=== PATIENT | male | born 1935 | race Caucasian/White ===

== ENCOUNTER → 2019-06-29 | Outpatient (CLI) | payer MEDICARE, SELFPAY ==
[2017-01-02 19:29] VITALS: BMI 28.7
--- NOTE | 2019-06-29 14:49 | EKG12_ITS ---
Test Reason : PRE OP Blood Pressure : / mmHG Vent. Rate : 046 BPM Atrial Rate : 046 BPM P-R Int : 214 ms QRS Dur : 160 ms QT Int : 446 ms P-R-T Axes : 065 -15 041 degrees QTc Int : 390 ms Marked sinus bradycardia with 1st degree A-V block Right bundle branch block Septal infarct , age undetermined , cannot be excluded Abnormal ECG Confirmed by FALGUNI WRIGHT, CATALINA ([id number]), sports editor ANGEL MANZANO ([id number]) on 07/01/2019 8:53:50 AM Referred By: Kenny Yoo Confirmed By:CATALINA MONTES DE OCA MD
[2019-06-29 16:02] LABS: Hematocrit 44.2 % (40-54); Hemoglobin 14.3 g/dL (13.0-16.5); Mean Corp Hgb Conc 32.4 g/dL (32-36); Mean Corpuscular Hgb 30.2 pg (27.0-32.0); Mean Corpuscular Volume 93.2 fL (80-94); Mean Platelet Vol. 9.6 fl (6.2-12.0); Platelet Count 278 K/mm3 (150-450); RBC Distribution Width CV 12.3 % (11.6-14.6); RBC Distribution Width SD 42.3 fl (35.1-43.9); Red Blood Count 4.74 M/mm3 (4.6-6.2); White Blood Count 5.6 K/mm3 (4.4-11.0)
[2019-06-29 16:30] LABS: Anion Gap 6 (5-15); BUN 16 mg/dL (7-18); BUN/Creat Ratio 18.5 RATIO (10-20); Chloride 105 mmol/L (98-107); Creatinine, Serum 0.87 mg/dL (0.70-1.30); EST Glomerular Filtration Rate 90 mL/min (>60); Est Glom Filt Rate - Afr Amer 108 mL/min (>60); Glucose 84 mg/dL (74-106); Potassium 3.8 mmol/L (3.5-5.1); Sodium Level 140 mmol/L (136-145)
== END | disposition home or self-care (01) ==
LOC: LAB 14:14
PROVIDERS: PCP Family Medicine; Referring Provider Urology; Visit Provider Urology
DX: Z01.812 Encounter for preprocedural laboratory examination (principal); I10 Essential (primary) hypertension
CPT/HCPCS: 36415; 80048; 85027; 93005

== ENCOUNTER → 2019-12-28 | Outpatient (CLI) | payer MEDICARE, SELFPAY ==
--- NOTE | 2019-12-28 14:46 | EKG12_ITS ---
Test Reason : Blood Pressure : / mmHG Vent. Rate : 049 BPM Atrial Rate : 049 BPM P-R Int : 210 ms QRS Dur : 150 ms QT Int : 460 ms P-R-T Axes : 078 -36 012 degrees QTc Int : 415 ms Sinus bradycardia with 1st degree A-V block Left axis deviation Right bundle branch block Abnormal ECG Confirmed by JOHN WRIGHT, SHAZIA ([id number]), offline editor ANGEL MANZANO ([id number]) on 12/29/2019 8:45:05 AM Referred By: Kenny Yoo Confirmed By:SHAZIA LOPEZ MD
[2019-12-28 15:44] LABS: Hematocrit 42.8 % (40-54); Mean Corp Hgb Conc 32.7 g/dL (32-36); Mean Corpuscular Hgb 30.8 pg (27.0-32.0); Mean Corpuscular Volume 94.1 fL (80-94); Mean Platelet Vol. 9.9 fl (6.2-12.0); Platelet Count 277 K/mm3 (150-450); RBC Distribution Width CV 12.7 % (11.6-14.6); RBC Distribution Width SD 43.8 fl (35.1-43.9); Red Blood Count 4.55 M/mm3 (4.6-6.2)
[2019-12-28 16:09] LABS: Anion Gap 3 (5-15); BUN 14 mg/dL (7-18); BUN/Creat Ratio 18.9 RATIO (10-20); Calcium,Total 8.9 mg/dL (8.5-10.1); Chloride 107 mmol/L (98-107); Creatinine, Serum 0.74 mg/dL (0.70-1.30); EST Glomerular Filtration Rate 108 mL/min (>60); Est Glom Filt Rate - Afr Amer 130 mL/min (>60); Glucose 95 mg/dL (74-106); Potassium 4.1 mmol/L (3.5-5.1); Sodium Level 141 mmol/L (136-145)
== END | disposition home or self-care (01) ==
PROVIDERS: PCP Family Medicine; Referring Provider Urology; Visit Provider Urology
DX: I10 Essential (primary) hypertension (principal); Z11.59 Encounter for screening for other viral diseases
CPT/HCPCS: 36415; 80048; 85027; 87635; 93005; 94799; C9803; U0003

== ENCOUNTER → 2022-01-16 | Outpatient (CLI) | payer MEDICARE, SELFPAY ==
--- NOTE | 2022-01-17 10:31 | PFT ---
INTRODUCTION: The patient is an 86-year-old male that presents for pulmonary function studies secondary to a diagnosis of asthma/COPD. Respiratory therapy reported good patient effort. Bronchodilators were used during testing. INTERPRETATION: Forced expiration spirometry demonstrates the presence of a mild large airways obstructive ventilatory defect. There was a significant response to aerosolized bronchodilators noted. Spirograms are of good quality but do not plateau indicating slow emptying of the lungs. Body plethysmography was performed and revealed an elevated RV to 127% of predicted, indicative of underlying air trapping. Diffusing capacity by single breath CO was within normal limits. IMPRESSION: Partially reversible mild large airways obstructive ventilatory defect with associated air trapping and preserved diffusing capacity, in a pattern consistent with asthma/COPD overlap.
== END | disposition home or self-care (01) ==
LOC: PSN 12:44
PROVIDERS: PCP Family Medicine; Visit Provider Internal Medicine Critical Care Medicine
DX: J44.9 Chronic obstructive pulmonary disease, unspecified (principal)
CPT/HCPCS: 94060; 94726; 94729

== ENCOUNTER → 2022-01-18 | Outpatient (CLI) | payer MEDICARE, SELFPAY ==
[2022-01-18 12:51] VITALS: PULSE 100; PULSE 101; PULSE 102; PULSE 60; PULSE 63; PULSE 97; PULSE 98; O2SAT 93; O2SAT 94; O2SAT 95; O2SAT 96; O2SAT 98
--- NOTE | 2022-01-19 13:09 | PCM.PSN.6M ---
PSN 6 Minute Walk Test 6 Minute Walk Test 6 Minute Walk Test: 6 Minute Walk Test PSN:6-Minute Walk Test Start: 01/18/22 12:51 Freq: Status: Active Protocol: RESP.6MINW Document 01/18/22 12:51 MARYJO (Rec: 01/18/22 12:53 MARYJO [id number]) 6 Minute Walk Test Date Performed 01/18/22 Time Performed 12:30 Height 5 ft 7 in Weight: 160 lb Weight in Pounds 160.[address]: Rashi Heard Pre-test Oxygen Delivery Method Room Air Pulse Ox (%) 98 Pulse Rate (60-100 beats/min) 60 Dyspnea Jovon Scale (0-10) 0 Exertion Jovon Scale (6-20) 6 1st minute Oxygen Delivery Method Room Air Pulse Ox (%) 98 Pulse Rate (60-100 beats/min) 97 2nd minute Oxygen Delivery Method Room Air Pulse Ox (%) 96 Pulse Rate (60-100 beats/min) 100 3rd minute Oxygen Delivery Method Room Air Pulse Ox (%) 95 Pulse Rate (60-100 beats/min) 98 4th minute Oxygen Delivery Method Room Air Pulse Ox (%) 94 Pulse Rate (60-100 beats/min) 102 H 5th minute Oxygen Delivery Method Nasal Cannula Pulse Ox (%) 93 Pulse Rate (60-100 beats/min) 101 H 6th minute Oxygen Delivery Method Room Air Pulse Ox (%) 93 Pulse Rate (60-100 beats/min) 100 Dyspnea Jovon Scale (0-10) 3 Exertion Jovon Scale (6-20) 12 Post-test Oxygen Delivery Method Room Air Pulse Ox (%) 98 Pulse Rate (60-100 beats/min) 63 Full Laps Walked 22 Partial Lap, Number of Tiles Walked 30 Total Distance Walked (ft) 1328 Interpretation Interpretation: The patient ambulated 1328 feet over the course of 6 minutes beginning on room air without assistive devices. Pretesting oxygen saturation was noted to be 98% on room air. With ambulation, then a maximilian oxygen saturation was 93%. This represents a significant exertional oxygen desaturation. Recommendations Recommendations: There is no indication for the use of supplemental oxygen at this time. However, close interval follow-up is recommended, given the degree of oxygen desaturation noted during this study.
== END | disposition home or self-care (01) ==
LOC: PSN 12:32
PROVIDERS: PCP Family Medicine; Referring Provider Internal Medicine Critical Care Medicine; Visit Provider Internal Medicine Critical Care Medicine
DX: J44.9 Chronic obstructive pulmonary disease, unspecified (principal)
CPT/HCPCS: 94618

== ENCOUNTER → 2022-08-21 | Outpatient (CLI) | payer MEDICARE, SELFPAY ==
[2022-08-21 16:44] LABS: PSA,Total- Diagnostic 0.77 ng/mL (0.0-4.0)
== END | disposition home or self-care (01) ==
LOC: LAB 13:55
PROVIDERS: PCP Family Medicine; Referring Provider Urology; Visit Provider Urology
DX: N40.1 Benign prostatic hyperplasia with lower urinary tract symptoms (principal)
CPT/HCPCS: 36415; 84153

== ENCOUNTER → 2022-11-05 | Outpatient (CLI) | payer MEDICARE, SELFPAY ==
[2022-11-05 12:23] LABS: Absolute Lymphocyte Count 1.12 X10^3/uL (0.83-4.51); Absolute Neutrophil Count 3.5 X10^3/uL (2.0-7.7); Basophil# 0.05 X10^3/uL; Basophil% 0.8 % (0-1); Eosinophil# 0.49 X10^3/uL; Eosinophils% 8.2 % (0-5); Hematocrit 44.4 % (40-54); Hemoglobin 14.5 g/dL (13.0-16.5); Lymphocyte # 1.12 X10^3/ul (0.83-4.51); Lymphocyte % 18.8 % (19-41); Mean Corp Hgb Conc 32.7 g/dL (32-36); Mean Corpuscular Hgb 31.4 pg (27.0-32.0); Mean Corpuscular Volume 96.1 fL (80-94); Monocyte# 0.75 X10^3/uL; Monocyte% 12.6 % (0-10); NRBC Flagged by Analyzer 0 % (0-5); Neutrophil # 3.53 X10^3/uL (2.7-7.7); Neutrophil % 59.4 % (47-70); Platelet Count 265 K/mm3 (150-450); RBC Distribution Width SD 46.4 fl (35.1-43.9); Red Blood Count 4.62 M/mm3 (4.6-6.2)
--- NOTE | 2022-11-05 12:28 | EKG12_ITS ---
Test Reason : PREOP Blood Pressure : / mmHG Vent. Rate : 062 BPM Atrial Rate : 062 BPM P-R Int : 000 ms QRS Dur : 148 ms QT Int : 432 ms P-R-T Axes : 000 -39 029 degrees QTc Int : 438 ms Sinus rhythm Left axis deviation Right bundle branch block Abnormal ECG Confirmed by KARRIE WRIGHT, RUBA ([id number]), editor farm journal ANGEL MANZANO ([id number]) on 11/06/2022 9:03:33 AM Referred By: Margarito Franco Confirmed By:JYOTI YOON MD
[2022-11-05 12:33] LABS: Anion Gap 4 (5-15); BUN 21 mg/dL (7-18); BUN/Creat Ratio 26.9 RATIO (10-20); Calcium,Total 8.9 mg/dL (8.5-10.1); Chloride 107 mmol/L (98-107); Creatinine, Serum 0.78 mg/dL (0.70-1.30); EST Glomerular Filtration Rate 100 mL/min (>60); Est Glom Filt Rate - Afr Amer 121 mL/min (>60); Glucose 101 mg/dL (74-106); Sodium Level 140 mmol/L (136-145)
[2022-11-05 12:36] LABS: International Normalized Ratio 0.9; Prothrombin Time (Protime)PT. 12.6 SECONDS (11.7-14.9)
[2022-11-05 12:37] LABS: Partial Thromboplast Time 29.9 Seconds (24.1-36.2)
--- NOTE | 2022-11-05 12:47 | RAD_ITS ---
EXAM: XR CHEST, 2 VIEWS CLINICAL INDICATION: ENCOUNTER FOR PRE PREPROCEDURAL RESP EXAM TECHNIQUE: Frontal and lateral views of the chest. COMPARISON: No relevant prior studies available. FINDINGS: LUNGS AND PLEURAL SPACES: Hyperinflation. No pneumothorax. No effusion. HEART: Unremarkable. Cardiac silhouette not enlarged. MEDIASTINUM: Central airways and mediastinal contour are unremarkable. BONES/JOINTS: Degenerative changes of the spine. SOFT TISSUES: Unremarkable. RAD/Chest PA and Lateral IMPRESSION: No acute findings in the chest. COPD changes. Electronically Signed: Bridger Hadley MD at 1:18 EDT ,
== END | disposition home or self-care (01) ==
PROVIDERS: PCP Family Medicine; Referring Provider Orthopaedic Surgery; Visit Provider Orthopaedic Surgery
DX: Z01.818 Encounter for other preprocedural examination (principal); Z01.810 Encounter for preprocedural cardiovascular examination; Z01.811 Encounter for preprocedural respiratory examination
CPT/HCPCS: 36415; 71046; 80048; 85025; 85610; 85730; 93005

== ENCOUNTER 2023-03-11 20:40 | Inpatient (IN) | payer MEDICARE, SELFPAY ==
[2023-03-11 20:42] VITALS: BP 169/131; PULSE 65; RESP 10; TEMP 36.1; O2SAT 98; BMI 25.2
--- NOTE | 2023-03-11 20:49 | EKG12_ITS ---
Test Reason : CP Blood Pressure : / mmHG Vent. Rate : 063 BPM Atrial Rate : 063 BPM P-R Int : 198 ms QRS Dur : 146 ms QT Int : 428 ms P-R-T Axes : -07 126 017 degrees QTc Int : 437 ms Normal sinus rhythm Right bundle branch block Left posterior fascicular block Bifascicular block Septal infarct , age undetermined Cannot rule out Inferior infarct , age undetermined Abnormal ECG No previous ECGs available Confirmed by JOHN WRIGHT, SHAZIA ([id number]), editor managing director DEISI LANCASTER ([id number]) on 03/13/2023 2:26:48 PM Referred By: SONIA Confirmed By:SHAZIA LOPEZ MD
--- NOTE | 2023-03-11 20:54 | CM.ED ---
Social Work SW performed chart review; LW with HCPOA agents noted on file as of 2011. Patient's agents are Madisyn Latham, Logan Latham and Beni Latham. Franny Singer MSW, CARMITA
[2023-03-11 21:11] LABS: Absolute Lymphocyte Count 1.71 X10^3/uL (0.83-4.51); Basophil# 0.04 X10^3/uL; Basophil% 0.6 % (0-1); Eosinophils% 1.5 % (0-5); Hematocrit 45.8 % (40-54); Hemoglobin 15.3 g/dL (13.0-16.5); Lymphocyte # 1.71 X10^3/ul (0.83-4.51); Lymphocyte % 25.7 % (19-41); Mean Corp Hgb Conc 33.4 g/dL (32-36); Mean Corpuscular Hgb 32.2 pg (27.0-32.0); Mean Corpuscular Volume 96.4 fL (80-94); Mean Platelet Vol. 9.3 fl (6.2-12.0); Monocyte# 0.75 X10^3/uL; Monocyte% 11.3 % (0-10); NRBC Flagged by Analyzer 0 % (0-5); Neutrophil # 4.04 X10^3/uL (2.7-7.7); Neutrophil % 60.7 % (47-70); Platelet Count 316 K/mm3 (150-450); RBC Distribution Width CV 12.5 % (11.6-14.6); RBC Distribution Width SD 45.1 fl (35.1-43.9); Red Blood Count 4.75 M/mm3 (4.6-6.2); White Blood Count 6.7 K/mm3 (4.4-11.0)
--- NOTE | 2023-03-11 21:28 | ED.VIS.CHEST ---
HPI History of Present Illness Chief Complaint: Chest Pain Narrative Narrative: 87-year-old male with history of asthma/COPD overlap syndrome, GERD, hypertension, hyperlipidemia presenting with chest pain. States is right-sided. He states due to his asthma/COPD he bends over he gets short of breath and he was working in his garage and he started feel this way. When he stood up started have sharp pain on the right which feels like it was stabbing. He states that he radiate to the back into the right arm and he became sweaty. He still has the pain there but it is improved. No fevers or chills. No nausea or vomiting. Patient has no history of [place]. Negative stress test 10 years ago. Patient no longer a smoker. He does not wear oxygen at baseline. [facility] Medical History Asthma BPH (benign prostatic hyperplasia) Chronic constipation COPD (chronic obstructive pulmonary disease) GERD (gastroesophageal reflux disease) History of facial trauma HTN (hypertension) Hydrocele, bilateral Hyperlipidemia Neuropathy Seasonal allergies Home Medications cetirizine 10 mg capsule (Allergy Relief (cetirizine)) 10 mg PO QODAY 09/13/15 [History Last Taken Unknown] flunisolide 25 mcg (0.025 %) nasal spray 1 spray BID 09/13/15 [History Last Taken Unknown] melatonin 3 mg-pyridoxine (vitamin B6) 2 mg tablet 1 ea PO QHS 09/13/15 [History Last Taken Unknown] albuterol sulfate 90 mcg/actuation aerosol inhaler (ProAir HFA) 2 puff inhalation Q6H PRN 07/19/21 [History Last Taken Unknown] losartan 50 mg tablet 100 mg PO DAILY 07/19/21 [History Last Taken Unknown] montelukast 10 mg tablet 10 mg PO QHS 07/19/21 [History Last Taken Unknown] tiotropium 2.5 mcg-olodaterol 2.5 mcg/actuation mist for inhalation (Stiolto Respimat) 2 inh inhalation DAILY #4 grams 05/24/22 [Rx Last Taken Unknown] Allergy/AdvReac Type Severity Reaction Status Date / Time Iodinated Contrast Media Allergy Anaphylaxis Verified 03/11/23 20:41 [CONTRASTS] chlorpromazine HCl AdvReac Rash Verified 03/11/23 20:41 [From Thorazine] fosinopril sodium AdvReac Hives Verified 03/11/23 20:41 [From Monopril] lisinopril AdvReac Hives Verified 03/11/23 20:41 suture AdvReac Swelling Verified 03/11/23 20:41 Family History Mother Heart disease Hypertension Father Cancer prostate Surgical History History of appendectomy History of back surgery History of cataract extraction History of colonoscopy History of facial surgery History of foot surgery History of left knee replacement History of prostate biopsy History of surgery on arm Social History Smoking Status: Former smoker pack-years: 20 Tobacco: How many years used: 20 Electronic Cigarette Use: not used how long ago did patient quit smoking: about 47 years ago second hand exposure: No alcohol intake: never substance use type: does not use ROS ROS ED Constitutional Constitutional ED: Denies chills, fever(s) or sweats Eyes Eyes: Denies blurry vision or change in vision ENT ENT ED: Denies ear pain or sore throat Cardiovascular Cardiovascular: Reports chest pain; Denies palpitations or racing heartbeat Respiratory/Chest Respiratory/Chest: Reports dyspnea; Denies cough or sputum Gastrointestinal Gastrointestinal: Denies abdominal pain, constipation, diarrhea, nausea or vomiting Genitourinary Genitourinary ED: Denies dysuria, hematuria or urinary frequency Musculoskeletal Musculoskeletal: Denies arthralgias, myalgias or neck pain Integumentary Denies abscess, Abrasions or rash Neurologic Neurologic: Denies headache(s), paresthesias or weakness Psychiatric Psychiatric: Denies anxiety, depression, suicidal ideation or suicidal thoughts Endocrine Endocrinology: Denies polydipsia or polyuria EXAM Physical Exam Const Vital Signs: 03/11/23 20:42 03/11/23 20:45 03/11/23 21:48 Temperature 97 F L Temperature Source Temporal Pulse Rate 65 Respiratory Rate 10 L Respiratory Effort Normal Non-Labored Blood Pressure 169/131 H Blood Pressure Mean 143 Pulse Ox 98 Oxygen Delivery Method Room Air Room Air Heart Score History: Slightly/Non-Suspicious ECG: Normal Age: >/= 65 years Risk Factors: >/= 3 Risk Factors or History of CAD Troponin: >/=3 x Normal Limit Score: 6 MDM MDM MDM Narrative Medical decision making narrative: Patient presenting with chest pain which he had since 8:00. It was acute in onset and happened after he bent over. He states that when he stood up he had sharp chest pain on the right which radiated to the right arm and into the back and then became sweaty. No nauseousness. He has shortness of breath but it is really chronic. Differential includes but is not limited to ACS, aortic dissection, pneumonia, pneumothorax, muscle strain, costochondritis. Considered PE however the patient is PERC negative. CBC will be obtained to assess white blood cell count, hemoglobin, platelets. BMP to assess renal function, electrolytes, glucose. High-sensitivity troponin and EKG will be obtained to assess for ischemia/dysrhythmia. Chest x-ray to rule out pneumonia or pneumothorax CBC shows no leukocytosis. Hemoglobin hematocrit are stable. Platelets are normal. Renal function electrolytes within normal limits. Initial high-sensitivity troponin is 31. EKG on my interpretation shows a sinus rhythm with a ventricular rate of 65 bpm without sign of ischemic change. There is a right bundle branch block. X-ray on my interpretation shows no acute process. Radiologist interprets this and agrees. Patient is given aspirin and started on heparin drip discussed with cardiology. Patient will be admitted to the hospitalist for further treatment. Impression: 1. NSTEMI Lab Data Attestation: I reviewed the patient's lab results. Labs: Laboratory Results - last 24 hr 03/11/23 03/11/23 20:45 22:46 WBC 6.7 RBC 4.75 Hgb 15.3 Hct 45.8 MCV 96.4 H MCH 32.2 H MCHC 33.4 RDW Std Deviation 45.1 H RDW Coeff of Horace 12.5 Plt Count 316 MPV 9.3 Immature Gran % (Auto) 0.200 Neut % (Auto) 60.7 Lymph % (Auto) 25.7 [place] % (Auto) 11.3 H Eos % (Auto) 1.5 Baso % (Auto) 0.6 Absolute Neuts (auto) 4.0 Absolute Lymphs (auto) 1.71 Nucleated RBC % 0 Sodium 139 Potassium 3.8 Chloride 104 Carbon Dioxide 28.0 Anion Gap 7 BUN 21 H Creatinine 0.92 Estim Creat Clear Calc 56.79 Est GFR (MDRD) Af Amer 101 Est GFR (MDRD) Non-Af 84 BUN/Creatinine Ratio 23.0 H Glucose 106 Calcium 9.3 Troponin I High Sens 31 662 H* Radiography Diagnostic Testing: Clinical Impression(s) from Imaging Studies Chest X-Ray 03/11/23 21:45 IMPRESSION: No radiographic evidence of acute cardiopulmonary disease. Electronically Signed: Orlin Rivera MD at 22:24 EDT , Discharge Plan Triage Chief Complaint: Chest Pain ED Provider: Bryson Morillo Dx/Rx/DC Orders Prescriptions: No Action montelukast 10 mg tablet 10 mg PO QHS albuterol sulfate [ProAir HFA] 90 mcg/actuation HFA aerosol inhaler 2 puff inhalation Q6H PRN Stiolto Respimat 2.5-2.5 mcg/actuation mist 2 inh inhalation DAILY Qty: 4 2RF flunisolide 1 SPRAY spray,non-aerosol 1 spray NASAL BID cetirizine [Allergy Relief (cetirizine)] 10 MG capsule 10 mg PO QODAY melatonin-pyridoxine (vit B6) 1 EACH tablet 1 ea PO QHS losartan 50 mg tablet 100 mg PO DAILY Primary Care Provider: Michael Moran Referrals: Michael Moran MD [Primary Care Provider] -
[2023-03-11 21:30] LABS: Anion Gap 7 (5-15); BUN 21 mg/dL (7-18); Calcium,Total 9.3 mg/dL (8.5-10.1); Chloride 104 mmol/L (98-107); Creatinine, Serum 0.92 mg/dL (0.70-1.30); EST Glomerular Filtration Rate 84 mL/min (>60); Est Glom Filt Rate - Afr Amer 101 mL/min (>60); Estimated Creatinine Clearance 56.79 ml/min; Glucose 106 mg/dL (74-106); Potassium 3.8 mmol/L (3.5-5.1); Sodium Level 139 mmol/L (136-145); Troponin-I HS (w/2H Reflex) 31 pg/mL (3.0-78.0)
--- NOTE | 2023-03-11 21:45 | RAD_ITS ---
INDICATION: chest pain EXAMINATION/TECHNIQUE: X-RAY - XR Chest 1 View COMPARISON: 11/05/2022. FINDINGS: LINES/DEVICES: None. LUNGS: No consolidation, edema or effusion. No pneumothorax. MEDIASTINUM AND CARDIOVASCULAR STRUCTURES: Cardiac silhouette not enlarged. Mild aortic atherosclerosis. BONES AND SOFT TISSUES: Unremarkable. RAD/Chest 1 View (Portable) IMPRESSION: No radiographic evidence of acute cardiopulmonary disease. Electronically Signed: Orlin Rivera MD at 22:24 EDT ,
[2023-03-11] MEDS: Aspirin 81 MG TAB.CHEW 324 MG PO (22:25)
[2023-03-11 23:03] LABS: Reflex Troponin-HS? (from REC) Y
[2023-03-11 23:29] LABS: Troponin-I HS 662 pg/mL (3.0-78.0)
--- NOTE | 2023-03-11 23:48 | EKG12_ITS ---
Test Reason : ELEVATED TROPONIN Blood Pressure : / mmHG Vent. Rate : 062 BPM Atrial Rate : 062 BPM P-R Int : 176 ms QRS Dur : 152 ms QT Int : 442 ms P-R-T Axes : 065 -65 014 degrees QTc Int : 448 ms Normal sinus rhythm with sinus arrhythmia Left axis deviation Right bundle branch block Septal infarct , age undetermined Abnormal ECG When compared with ECG of 05-NOV-2022 12:39, Septal infarct is now Present Confirmed by JOHN WRIGHT, SHAZIA ([id number]), editor managing director DEISI LANCASTER ([id number]) on 03/13/2023 2:25:27 PM Referred By: AMY Confirmed By:SHAZIA LOPEZ MD
--- NOTE | 2023-03-11 23:50 | PCM.HP.STD ---
HPI - General General Date of Admission: 03/11/23 Date of Service: 03/12/23 Chief Complaint: Chest pain HPI Narrative SANTA ARRIAGA, is a 87 M with a significant history of asthma; hypertension; and hyperlipidemia who presents to the emergency department with substernal chest pain that started while/after he was using (used) a sledgehammer. His pain started about 40 mins before presentation and his pain went away while at the emergency department. He describes pain as sharp and severe. The pain radiated to his right shoulder and into his shoulder blades. He denies any aggravating factors to the pain. Burping helps improved the pain. Associated with his symptoms is shortness of breath and diaphoresis. He denies any nausea or vomiting. Patient and family wants patient's son Logan Arriaga (phone number [phone]) notified of patient's condition. Of note patient has anaphylactic reaction to dye where his throat begin to clog. [facility] Medical History Asthma BPH (benign prostatic hyperplasia) Chronic constipation COPD (chronic obstructive pulmonary disease) GERD (gastroesophageal reflux disease) History of facial trauma HTN (hypertension) Hydrocele, bilateral Hyperlipidemia Neuropathy Seasonal allergies Home Medications cetirizine 10 mg capsule (Allergy Relief (cetirizine)) 10 mg PO QODAY allergy 09/13/15 [History Last Taken Unknown] flunisolide 25 mcg (0.025 %) nasal spray 1 spray intranasal BID nasal spray 09/13/15 [History Last Taken Unknown] melatonin 3 mg-pyridoxine (vitamin B6) 2 mg tablet 1 ea PO QHS sleep 09/13/15 [History Last Taken Unknown] albuterol sulfate 90 mcg/actuation aerosol inhaler (ProAir HFA) 2 puff inhalation Q6H PRN copd 07/19/21 [History Last Taken Unknown] losartan 50 mg tablet 100 mg PO DAILY bp 07/19/21 [History Last Taken Unknown] montelukast 10 mg tablet 10 mg PO QHS allergy 07/19/21 [History Last Taken Unknown] tiotropium 2.5 mcg-olodaterol 2.5 mcg/actuation mist for inhalation (Stiolto Respimat) 2 inh inhalation DAILY breathing #4 grams 05/24/22 [Rx Last Taken Unknown] Allergy/AdvReac Type Severity Reaction Status Date / Time Iodinated Contrast Media Allergy Anaphylaxis Verified 03/11/23 20:41 [CONTRASTS] chlorpromazine HCl AdvReac Rash Verified 03/11/23 20:41 [From Thorazine] fosinopril sodium AdvReac Hives Verified 03/11/23 20:41 [From Monopril] lisinopril AdvReac Hives Verified 03/11/23 20:41 suture AdvReac Swelling Verified 03/11/23 20:41 Family History Mother Heart disease Hypertension Father Cancer prostate Surgical History History of appendectomy History of back surgery History of cataract extraction History of colonoscopy History of facial surgery History of foot surgery History of left knee replacement History of prostate biopsy History of surgery on arm Social History Smoking Status: Former smoker pack-years: 20 Tobacco: How many years used: 20 Electronic Cigarette Use: not used how long ago did patient quit smoking: about 47 years ago second hand exposure: No alcohol intake: never substance use type: does not use ROS ROS Narrative Pertinent positives and pertinent negatives as noted in HPI. All other systems were reviewed and are negative Vital Signs Vital Signs Vital Signs: 03/11/23 20:42 03/11/23 20:45 03/11/23 21:48 Temperature 97 F L Temperature Source Temporal Pulse Rate 65 Respiratory Rate 10 L Respiratory Effort Normal Non-Labored Blood Pressure 169/131 H Blood Pressure Mean 143 Pulse Ox 98 Oxygen Delivery Method Room Air Room Air Weight Weight: 75.7 kg Body Mass Index (BMI) 25.2 Physical Exam Narrative Physical exam: General: Well-nourished, well-developed. Head: Normocephalic, atraumatic, no tenderness Eyes: Vision is grossly intact. EOMI ENT, no trauma, moist mucous membranes, no rhinorrhea Neck: Nontender, No thyromegaly. CVS: Regular rate and rhythm. S1-S2 present. No murmur, gallop or rub. Respiratory : clear to auscultation bilaterally, chest wall nontender Abdomen: Soft, nontender, nondistended, normal bowel sounds, no masses : Deferred Back: Nontender, no CVA tenderness, no midline spinal tenderness, deformities, step-offs Extremities: Nontender full range of motion, no trauma Skin: Normal color, no trauma, abrasions Neuro: Alert, oriented, cranial nerves II through XII grossly intact. Psychiatry: Normal mood. Normal affect. Not depressed. Not anxious. Results Lab / Micro Data 03/12/23 02:31 03/12/23 02:31 Labs: Laboratory Results - last 24 hr 03/11/23 20:45: WBC 6.7, RBC 4.75, Hgb 15.3, Hct 45.8, MCV 96.4 H, MCH 32.2 H, MCHC 33.4, RDW Std Deviation 45.1 H, RDW Coeff of Horace 12.5, Plt Count 316, MPV 9.3, Immature Gran % (Auto) 0.200, Neut % (Auto) 60.7, Lymph % (Auto) 25.7, [place] % (Auto) 11.3 H, Eos % (Auto) 1.5, Baso % (Auto) 0.6, Absolute Neuts (auto) 4.0, Absolute Lymphs (auto) 1.71, Nucleated RBC % 0, Sodium 139, Potassium 3.8, Chloride 104, Carbon Dioxide 28.0, Anion Gap 7, BUN 21 H, Creatinine 0.92, Estim Creat Clear Calc 56.79, Est GFR (MDRD) Af Amer 101, Est GFR (MDRD) Non-Af 84, BUN/Creatinine Ratio 23.0 H, Glucose 106, Calcium 9.3, Troponin I High Sens 31 03/11/23 22:46: Troponin I High Sens 662 H* Radiology Impression Chest X-Ray 03/11/23 21:45 IMPRESSION: No radiographic evidence of acute cardiopulmonary disease. Electronically Signed: Orlin Rivera MD at 22:24 EDT , Assessment & Plan Assessment/Plan (1) NSTEMI, initial episode of care: PLAN: Plan NSTEMI Place on a monitored bed at progressive care unit Impression of chest x-ray: No radiographic evidence of acute cardiopulmonary disease. Actual CXR image was independently visualized. No acute cardiopulmonary process was noted. Actual EKG tracing was independently visualized. EKG tracing did not show any ST elevations. ASA 81 mg p.o. daily ordered SL NTG 0.4 mg prn as needed for chest pain ordered Morphine as needed for pain ordered We will check lipid panel. Anticoagulation: On a heparin drip at the emergency department and continued. Initial high-sensitivity troponin was 31. Repeat was 662; trend. Stat EKG as needed for chest pain Cardiology consulted from the ED and will follow up. Patient reports anaphylactic reaction to dye. I doubt whether patient will be eligible for cardiac cath. Anticipate medical management. Asthma/COPD Allergy medications continued. Home nebulization continued. DVT Prophylaxis: Not indicated as patient will be started on heparin drip for non-STEMI. Time spent in the patient's overall evaluation,decision-making process, review of diagnostic data, adjustment of management, discussion with other providers, nursing and ancillary staff involved in patient's care documentation, 45 minutes. Charges/Coding Visit Charges Inpatient E&M: 05697 Init Hosp L2
[2023-03-11] MEDS: HEPARIN/D5w 25,000 UNITS 25,000 UNITS/250 ML IV.SOLN. 9 UNITS CONT INF (23:55)
[2023-03-11] MEDS: Heparin Injection (Vial) 5,000 UNIT/ML VIAL 4000 UNIT IV (23:57)
[2023-03-12] VITALS (11 sets, daily range): BP systolic 96–147; BP diastolic 64–84; PULSE 59–91; RESP 16–18; TEMP 35.7–36.8; O2SAT 94–100; BMI 25.7; BMI 24.7
[2023-03-12 00:20] LABS: Partial Thromboplast Time 30.7 Seconds (24.1-36.2); Prothrombin Time (Protime)PT. 12.9 SECONDS (11.7-14.9)
--- NOTE | 2023-03-12 01:46 | EKG12_ITS ---
Test Reason : CP Admission Blood Pressure : / mmHG Vent. Rate : 058 BPM Atrial Rate : 058 BPM P-R Int : 190 ms QRS Dur : 140 ms QT Int : 414 ms P-R-T Axes : 074 -79 063 degrees QTc Int : 406 ms Sinus bradycardia Left axis deviation Right bundle branch block Cannot rule out Anteroseptal infarct , age undetermined Abnormal ECG When compared with ECG of 05-NOV-2022 12:39, Minimal criteria for Anteroseptal infarct are now Present Nonspecific T wave abnormality now evident in Anterior leads Confirmed by JOHN WRIGHT, SHAZIA ([id number]), editor school photograph DEISI LANCASTER ([id number]) on 03/14/2023 1:29:26 PM Referred By: Confirmed By:SHAZIA LOPEZ MD
[2023-03-12 02:51] LABS: Absolute Lymphocyte Count 1.28 X10^3/uL (0.83-4.51); Absolute Neutrophil Count 5.6 X10^3/uL (2.0-7.7); Basophil# 0.04 X10^3/uL; Basophil% 0.5 % (0-1); Eosinophil# 0.05 X10^3/uL; Eosinophils% 0.6 % (0-5); Hematocrit 44.2 % (40-54); Hemoglobin 14.9 g/dL (13.0-16.5); Lymphocyte # 1.28 X10^3/ul (0.83-4.51); Lymphocyte % 16.6 % (19-41); Mean Corp Hgb Conc 33.7 g/dL (32-36); Mean Corpuscular Hgb 31.9 pg (27.0-32.0); Mean Corpuscular Volume 94.6 fL (80-94); Mean Platelet Vol. 9.2 fl (6.2-12.0); Monocyte# 0.75 X10^3/uL; Monocyte% 9.7 % (0-10); NRBC Flagged by Analyzer 0 % (0-5); Neutrophil # 5.58 X10^3/uL (2.7-7.7); Neutrophil % 72.5 % (47-70); Platelet Count 276 K/mm3 (150-450); RBC Distribution Width CV 12.6 % (11.6-14.6); Red Blood Count 4.67 M/mm3 (4.6-6.2); White Blood Count 7.7 K/mm3 (4.4-11.0)
[2023-03-12 03:16] LABS: Anion Gap 6 (5-15); BUN 16 mg/dL (7-18); BUN/Creat Ratio 20.9 RATIO (10-20); Calcium,Total 9.1 mg/dL (8.5-10.1); Chloride 109 mmol/L (98-107); Creatinine, Serum 0.77 mg/dL (0.70-1.30); EST Glomerular Filtration Rate 102 mL/min (>60); Est Glom Filt Rate - Afr Amer 124 mL/min (>60); Estimated Creatinine Clearance 50.49 ml/min; Glucose 106 mg/dL (74-106); Potassium 3.9 mmol/L (3.5-5.1); Sodium Level 141 mmol/L (136-145)
[2023-03-12 03:26] LABS: Troponin-I HS 3222 pg/mL (3.0-78.0)
--- NOTE | 2023-03-12 05:55 | ECHOD_ITS ---
Reason For Study: CHEST PAIN Procedure This was a 2D Doppler, Color Flow transthoracic echocardiogram. Exam performed portable in patient room. Left Ventricle Normal LV size. The estimated ejection fraction is 40 %. There is evidence of diastolic dysfunction. [place] : Akinetic. Right Ventricle Normal RV size. Normal systolic function. Atria Normal left atrium. Normal right atrium. No doppler evidence for ASD. Mitral Valve There is no mitral valve stenosis. No mitral valve insufficiency. Tricuspid Valve There is no tricuspid stenosis. No tricuspid valve insufficiency. Unable to estimate RV systolic pressure due to inadequate jet, pulmonary artery pressure probably normal. Aortic Valve Trisinus/trileaflet aortic valve. Aortic sclerosis, no stenosis. There is no aortic stenosis. No aortic valve insufficiency. Pulmonic Valve There is no pulmonic valvular stenosis. No pulmonic valve insufficiency. Great Vessels Normal aortic root. Pericardium/Pleural No pericardial effusion. MMode/2D Measurements & Calculations LVIDd: 5.3 cm IVSd: 1.2 cm Ao root diam: 3.7 cm LVIDs: 3.2 cm LVPWd: 1.4 cm RVDd: 3.4 cm FS: 38.9 % LAV(MOD-bp): 39.3 ml LVAd ap4: 37.5 cm2 LVAd ap2: 30.2 cm2 LAV(MOD-bp) Indexed: 20.8 ml/m2 LVLd ap4: 8.9 cm LVLd ap2: 8.9 cm LAV(MOD-sp2): 43.3 ml EDV(MOD-sp4): 126.8 ml EDV(MOD-sp2): 89.4 ml LAV(MOD-sp4): 25.1 ml EDV(sp4-el): 133.2 ml EDV(sp2-el): 87.2 ml LVAs ap4: 26.6 cm2 LVAs ap2: 23.4 cm2 LVLs ap4: 8.3 cm LVLs ap2: 8.4 cm ESV(MOD-sp4): 68.8 ml ESV(MOD-sp2): 54.2 ml ESV(sp4-el): 72.6 ml ESV(sp2-el): 55.0 ml EF(MOD-sp4): 45.8 % EF(MOD-sp2): 39.4 % EF(sp4-el): 45.5 % SV(MOD-sp4): 58.0 ml SV(MOD-sp2): 35.3 ml SV(sp4-el): 60.6 ml TAPSE: 1.7 cm LA A4 area: 11.1 cm2 RA A4 area: 8.0 cm2 Time Measurements MV dec time: 0.22 sec Doppler Measurements & Calculations MV E max baljeet: 32.2 cm/sec Lat Peak E' Baljeet: 6.0 cm/sec Med Peak E' Baljeet: 5.6 cm/sec MV A max baljeet: 67.2 cm/sec E/E' lat: 5.4 E/E' med: 5.8 MV E/A: 0.48 MV dec slope: 148.9 cm/sec2 Ao V2 max: 131.8 cm/sec LV V1 max: 109.7 cm/sec Ao max P.0 mmHg LV V1 max P.8 mmHg Ao V2 mean: 92.7 cm/sec LV V1 mean P.6 mmHg Ao mean P.8 mmHg LV V1 mean: 74.6 cm/sec Ao V2 VTI: 26.8 cm LV V1 VTI: 22.1 cm AV (velocity ratio): 0.82 PA V2 max: 83.8 cm/sec PA V2 mean: 64.9 cm/sec ECHO/Echo Complete Interpretation Summary The estimated ejection fraction is 40 %. There is evidence of diastolic dysfunction. [place] : Akinetic. Ordering Physician: Sam Prajapati Referring Physician: Michael Moran Performed By: Leann Stroud, BLANQUITA, RVT
[2023-03-12] MEDS: Fluticasone 0.05% 1 SPRAY NASAL.SRY 2 SPRAY NASAL ×2 (06:14→19:56)
[2023-03-12 06:42] LABS: Partial Thromboplast Time 77.1 Seconds (24.1-36.2)
[2023-03-12] MEDS: Aspirin E.C. 81 MG Tablet PO (09:52)
--- NOTE | 2023-03-12 12:05 | CASEMGMT ---
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 Pt voices understanding and consents to?assessment?at this time.? Pt resting in bed in no distress at this time. Son, Logan, @ bedside and pt agreeable to him being present during assessment.? Pt is A/O at this time and answers all questions appropriately.?? Care providers, pharmacy, and demographics verified/updated at this time. PCP: Dr Moran Specialists: Dr Heard-pulmonology [facility]. Insurance: [employer] Prescription Benefit:?Yes Living Will/HPOA:?Pt has both LW and HCPOA, who is are his sons, Logan and Beni. (Pt's , Madisyn, was listed, but she last year). LNOK: Logan Subramanian and Beni Living Arrangements: Lives alone in one-story home w/2 steps to enter. Independent w/ADL's, IADL's, and manages his own medications. Transportation:?Pt states drives self and states no transportation concerns at this time.?Family will take him home @ discharge. DME: States has the following DME:?Pt purchased an [employer] and oxygen concentrator [id number]. He states he had amb oxygen testing done @ Dr Heard's office and that he needed O2 w/exertion, although he does not know how how the liter flow. He states he has not been wearing it yet, but plans to do so. He does not have a pulse ox. RN CM recommended he buy one and made aware of several locations he could find one, he voices understanding, and states it is affordable to purchase one. Pt states no need for further DME at this time.? HHC/SNF: No hx of either. Denies need for HHC and no needs identified. Pt wishes to return home and states has no concerns with going home at time of discharge.? CM?to follow for home oxygen needs and any further discharge planning/needs.? Pt and son voice no further concerns/needs at this time.? Advised them to ask for?CM?if any further questions/concerns/needs arise.? They voice understanding. PLAN:??Home Nicholas ARBOLEDAN?RN?CM
[2023-03-12 13:17] LABS: Cholesterol 207 mg/dL (200); High Density Lipoprotein 78 mg/dL; Thyroid Stim Hormone (TSH) 3.99 uIU/mL (0.358-3.74); Triglycerides 84 mg/dL; Very Low Density Lipoprotein 17 mg/dL (5-40)
[2023-03-12 13:34] LABS: Partial Thromboplast Time 57.2 Seconds (24.1-36.2)
[2023-03-12] MEDS: Ipratropium/Albuterol Sulfate 3 ML AMPUL.NEB INHALATION ×2 (13:43→20:07)
[2023-03-12 13:44] LABS: Hemoglobin A1c 5.4 % (3.8-5.6)
--- NOTE | 2023-03-12 14:43 | CHAPLAIN ---
Type of Pastoral Visit _x__ Initial Visit ___ Follow-up Visit ___ On-call Visit ___ General Patient Visit ___ Spiritual Assessment ___ Family Conference ___ Bereavement ___ Rapid Response ___ Code Blue ___ Other (describe below) Pastoral Care Referral From _x__ Patient ___ Family ___ Nurse ___ Physician ___ Online Marketing Specialist ___ Match Up Worker ___ Other (describe below) Sacrament/Intervention _x__ Active listening ___ Anointing ___ Orthodox ___ Bereavement ___ Communion ___ Jessica exploration ___ ___ Life review ___ Prayer ___ Reconciliation ___ Sacrament of Sick ___ Supportive presence ___ Wedding ___ Other (describe below) Pastoral Comments patient is on the phone when this clinical field specialist entered the room and he soon hangs up; pt has full lunch tray before him and mentions that he hasn't eaten since yesterday; pt states that he is fine, that he still works and wants to continue working; pt is again offered presence or support and he declines the need at this time
--- NOTE | 2023-03-12 14:57 | PCM.CONS.C ---
Assessment & Plan Assessment/Plan (1) NSTEMI, initial episode of care: PLAN: We will proceed with coronary angiography tomorrow. Discussed treatment options and risks and benefits in detail with the patient. Patient is in overall very good physical condition for his age. We will pretreat him for IV dye allergy. While patient states it was during an MRI procedure, to be entirely safe I feel it is better to pretreat him with prednisone prior to coronary angiography tomorrow. We will add beta-vivian and statin to patient's regimen. Continue IV heparin at this time. HPI Consult Data Date of Consult: 03/12/23 HPI Narrative Reason for Consultation: Non-STEMI HPI Narrative: [place], is a 87 M who presents with chest pain. Patient's troponin went up as well. He is currently chest pain-free. Patient states he is allergic to IV dye. However he states it was during an MRI about 20 years ago. He states that he had a severe reaction and almost from it. Review of systems: All systems reviewed. All else is negative except that in HPI [facility] Medical History Asthma BPH (benign prostatic hyperplasia) Chronic constipation COPD (chronic obstructive pulmonary disease) GERD (gastroesophageal reflux disease) History of facial trauma HTN (hypertension) Hydrocele, bilateral Hyperlipidemia Neuropathy Seasonal allergies Home Medications cetirizine 10 mg capsule (Allergy Relief (cetirizine)) 10 mg PO QODAY allergy 09/13/15 [History Last Taken Unknown] flunisolide 25 mcg (0.025 %) nasal spray 1 spray intranasal BID nasal spray 09/13/15 [History Last Taken Unknown] melatonin 3 mg-pyridoxine (vitamin B6) 2 mg tablet 1 ea PO QHS sleep 09/13/15 [History Last Taken Unknown] albuterol sulfate 90 mcg/actuation aerosol inhaler (ProAir HFA) 2 puff inhalation Q6H PRN copd 07/19/21 [History Last Taken Unknown] losartan 50 mg tablet 100 mg PO DAILY bp 07/19/21 [History Last Taken Unknown] montelukast 10 mg tablet 10 mg PO QHS allergy 07/19/21 [History Last Taken Unknown] tiotropium 2.5 mcg-olodaterol 2.5 mcg/actuation mist for inhalation (Stiolto Respimat) 2 inh inhalation DAILY breathing #4 grams 05/24/22 [Rx Last Taken Unknown] Allergy/AdvReac Type Severity Reaction Status Date / Time Iodinated Contrast Media Allergy Anaphylaxis Verified 03/11/23 20:41 [CONTRASTS] chlorpromazine HCl AdvReac Rash Verified 03/11/23 20:41 [From Thorazine] fosinopril sodium AdvReac Hives Verified 03/11/23 20:41 [From Monopril] lisinopril AdvReac Hives Verified 03/11/23 20:41 suture AdvReac Swelling Verified 03/11/23 20:41 Family History Mother Heart disease Hypertension Father Cancer prostate Surgical History History of appendectomy History of back surgery History of cataract extraction History of colonoscopy History of facial surgery History of foot surgery History of left knee replacement History of prostate biopsy History of surgery on arm Social History Smoking Status: Former smoker pack-years: 20 Tobacco: How many years used: 20 Electronic Cigarette Use: not used how long ago did patient quit smoking: about 47 years ago second hand exposure: No alcohol intake: never substance use type: does not use Physical Exam Const alert and oriented x3 HEENT normocephalic Eyes no scleral icterus Resp normal respiratory effort Cardio regular rate Skin no rashes or lesions noted Psych mental status grossly normal Risk Stratification Risk Stratification Applicable: No Charges/Coding Visit Charges Inpatient E&M: 15930 Init Hosp L2 Objective Data Vital Signs: Vital Signs Temp Pulse Resp BP Pulse Ox O2 Del Method 98.2 F 82 16 96/64 96 Room Air 03/12/23 14:50 03/12/23 14:50 03/12/23 14:50 03/12/23 14:50 03/12/23 14:50 03/12/23 14:50 Oxygen Delivery Method Room Air Weight: 164 lb 7.437 oz Body Mass Index (BMI) 25.7 Intake & Output: Intake and Output for Last 24 Hours 03/10/23 03/11/23 03/12/23 23:59 23:59 23:59 Intake Total 126.25 / 126.25 Balance 126.25 / 126.25 Lab / Micro Data 03/12/23 02:31 03/12/23 02:31 Labs: Laboratory Results - last 24 hr 03/11/23 20:45: WBC 6.7, RBC 4.75, Hgb 15.3, Hct 45.8, MCV 96.4 H, MCH 32.2 H, MCHC 33.4, RDW Std Deviation 45.1 H, RDW Coeff of Horace 12.5, Plt Count 316, MPV 9.3, Immature Gran % (Auto) 0.200, Neut % (Auto) 60.7, Lymph % (Auto) 25.7, [place] % (Auto) 11.3 H, Eos % (Auto) 1.5, Baso % (Auto) 0.6, Absolute Neuts (auto) 4.0, Absolute Lymphs (auto) 1.71, Nucleated RBC % 0, PT 12.9, INR 1.0, APTT 30.7, Sodium 139, Potassium 3.8, Chloride 104, Carbon Dioxide 28.0, Anion Gap 7, BUN 21 H, Creatinine 0.92, Estim Creat Clear Calc 56.79, Est GFR (MDRD) Af Amer 101, Est GFR (MDRD) Non-Af 84, BUN/Creatinine Ratio 23.0 H, Glucose 106, Calcium 9.3, Troponin I High Sens 31 03/11/23 22:46: Troponin I High Sens 662 H* 03/12/23 02:31: WBC 7.7, RBC 4.67, Hgb 14.9, Hct 44.2, MCV 94.6 H, MCH 31.9, MCHC 33.7, RDW Std Deviation 44.0 H, RDW Coeff of Horace 12.6, Plt Count 276, MPV 9.2, Immature Gran % (Auto) 0.100, Neut % (Auto) 72.5 H, Lymph % (Auto) 16.6 L, [place] % (Auto) 9.7, Eos % (Auto) 0.6, Baso % (Auto) 0.5, Absolute Neuts (auto) 5.6, Absolute Lymphs (auto) 1.28, Nucleated RBC % 0, Sodium 141, Potassium 3.9, Chloride 109 H, Carbon Dioxide 26.0, Anion Gap 6, BUN 16, Creatinine 0.77, Estim Creat Clear Calc 50.49, Est GFR (MDRD) Af Amer 124, Est GFR (MDRD) Non-Af 102, BUN/Creatinine Ratio 20.9 H, Glucose 106, Hemoglobin A1c 5.4, Calcium 9.1, Troponin I High Sens 3222 H*, Triglycerides 84, Cholesterol 207 H, LDL Cholesterol 112, VLDL Cholesterol 17, HDL Cholesterol 78, TSH 3.99 H 03/12/23 06:14: APTT 77.1 H 03/12/23 12:50: APTT 57.2 H Cardiology Labs/Tests 03/11/23 20:45: WBC 6.7, RBC 4.75, Hgb 15.3, Hct 45.8, MCV 96.4 H, MCH 32.2 H, MCHC 33.4, Plt Count 316, MPV 9.3, Immature Gran % (Auto) 0.200, Neut % (Auto) 60.7, Lymph % (Auto) 25.7, [place] % (Auto) 11.3 H, Eos % (Auto) 1.5, Baso % (Auto) 0.6, Absolute Neuts (auto) 4.0, Nucleated RBC % 0, PT 12.9, INR 1.0, APTT 30.7, Sodium 139, Potassium 3.8, Chloride 104, Carbon Dioxide 28.0, Anion Gap 7, BUN 21 H, Creatinine 0.92, Est GFR (MDRD) Af Amer 101, Est GFR (MDRD) Non-Af 84, BUN/Creatinine Ratio 23.0 H, Glucose 106, Calcium 9.3 03/12/23 02:31: WBC 7.7, RBC 4.67, Hgb 14.9, Hct 44.2, MCV 94.6 H, MCH 31.9, MCHC 33.7, Plt Count 276, MPV 9.2, Immature Gran % (Auto) 0.100, Neut % (Auto) 72.5 H, Lymph % (Auto) 16.6 L, [place] % (Auto) 9.7, Eos % (Auto) 0.6, Baso % (Auto) 0.5, Absolute Neuts (auto) 5.6, Nucleated RBC % 0, Sodium 141, Potassium 3.9, Chloride 109 H, Carbon Dioxide 26.0, Anion Gap 6, BUN 16, Creatinine 0.77, Est GFR (MDRD) Af Amer 124, Est GFR (MDRD) Non-Af 102, BUN/Creatinine Ratio 20.9 H, Glucose 106, Hemoglobin A1c 5.4, Calcium 9.1, Triglycerides 84, Cholesterol 207 H, LDL Cholesterol 112, VLDL Cholesterol 17, HDL Cholesterol 78 03/12/23 06:14: APTT 77.1 H 03/12/23 12:50: APTT 57.2 H Rhythm: EKG: ECHO: Stress Test: Cardiac Cath: PCI: CT Surgery: Holter monitor: EPS: PPM: CXR: Chest CT Scan: Radiography Diagnostic Testing: Radiology Impression Chest X-Ray 03/11/23 21:45 IMPRESSION: No radiographic evidence of acute cardiopulmonary disease. Electronically Signed: Orlin Rivera MD at 22:24 EDT , Echocardiogram 03/12/23 05:55 Interpretation Summary The estimated ejection fraction is 40 %. There is evidence of diastolic dysfunction. [place] : Akinetic. Ordering Physician: Sam Prajapati Referring Physician: Michael Moran Performed By: Leann Stroud, OKSANACS, RVT
--- NOTE | 2023-03-12 18:05 | PCM.PN.HOSP ---
Reason for Visit Reason for Visit: Diagnoses Non-ST elevation (NSTEMI) myocardial infarction (03/11/23) Subjective Subjective Patient seen at bedside this morning, son present. Patient sitting comfortably in bed, conversing normally, no acute distress. Patient denies any chest pain currently. Denies any other acute pain or discomfort. Wants to go home to CT scan. No other acute concerns. Objective Data Objective Data Vital Signs: Vital Signs Temp Pulse Resp BP Pulse Ox O2 Del Method 98.2 F 82 16 96/64 96 Room Air 03/12/23 14:50 03/12/23 14:50 03/12/23 14:50 03/12/23 14:50 03/12/23 14:50 03/12/23 14:50 Oxygen Delivery Method Room Air Weight: 74.6 kg Body Mass Index (BMI) 25.7 Intake & Output: Intake and Output for Last 24 Hours 03/10/23 03/11/23 03/12/23 23:59 23:59 23:59 Intake Total 126.25 / 126.25 Balance 126.25 / 126.25 Lab / Micro Data 03/12/23 02:31 03/12/23 02:31 Labs: Laboratory Results - last 24 hr 03/11/23 20:45: WBC 6.7, RBC 4.75, Hgb 15.3, Hct 45.8, MCV 96.4 H, MCH 32.2 H, MCHC 33.4, RDW Std Deviation 45.1 H, RDW Coeff of Horace 12.5, Plt Count 316, MPV 9.3, Immature Gran % (Auto) 0.200, Neut % (Auto) 60.7, Lymph % (Auto) 25.7, [place] % (Auto) 11.3 H, Eos % (Auto) 1.5, Baso % (Auto) 0.6, Absolute Neuts (auto) 4.0, Absolute Lymphs (auto) 1.71, Nucleated RBC % 0, PT 12.9, INR 1.0, APTT 30.7, Sodium 139, Potassium 3.8, Chloride 104, Carbon Dioxide 28.0, Anion Gap 7, BUN 21 H, Creatinine 0.92, Estim Creat Clear Calc 56.79, Est GFR (MDRD) Af Amer 101, Est GFR (MDRD) Non-Af 84, BUN/Creatinine Ratio 23.0 H, Glucose 106, Calcium 9.3, Troponin I High Sens 31 03/11/23 22:46: Troponin I High Sens 662 H* 03/12/23 02:31: WBC 7.7, RBC 4.67, Hgb 14.9, Hct 44.2, MCV 94.6 H, MCH 31.9, MCHC 33.7, RDW Std Deviation 44.0 H, RDW Coeff of Horace 12.6, Plt Count 276, MPV 9.2, Immature Gran % (Auto) 0.100, Neut % (Auto) 72.5 H, Lymph % (Auto) 16.6 L, [place] % (Auto) 9.7, Eos % (Auto) 0.6, Baso % (Auto) 0.5, Absolute Neuts (auto) 5.6, Absolute Lymphs (auto) 1.28, Nucleated RBC % 0, Sodium 141, Potassium 3.9, Chloride 109 H, Carbon Dioxide 26.0, Anion Gap 6, BUN 16, Creatinine 0.77, Estim Creat Clear Calc 50.49, Est GFR (MDRD) Af Amer 124, Est GFR (MDRD) Non-Af 102, BUN/Creatinine Ratio 20.9 H, Glucose 106, Hemoglobin A1c 5.4, Calcium 9.1, Troponin I High Sens 3222 H*, Triglycerides 84, Cholesterol 207 H, LDL Cholesterol 112, VLDL Cholesterol 17, HDL Cholesterol 78, TSH 3.99 H 03/12/23 06:14: APTT 77.1 H 03/12/23 12:50: APTT 57.2 H Radiography Diagnostic Testing: Radiology Impression Chest X-Ray 03/11/23 21:45 IMPRESSION: No radiographic evidence of acute cardiopulmonary disease. Electronically Signed: Orlin Rivera MD at 22:24 EDT , Echocardiogram 03/12/23 05:55 Interpretation Summary The estimated ejection fraction is 40 %. There is evidence of diastolic dysfunction. [place] : Akinetic. Ordering Physician: Sam Prajapati Referring Physician: Michael Moran Performed By: Leann Stroud, BLANQUITA, RVT Physical Exam Const alert, oriented x3, no apparent distress, average body habitus, healthy appearing and well nourished Constitutional Narrative: Pleasant elderly male, sitting comfortably in bed, conversing normally, no acute distress. General Appearance: cooperative and comfortable HEENT normocephalic, head/scalp atraumatic, hearing grossly normal bilaterally, nasal mucous membranes and turbinates normal and moist oral mucous membranes Eyes PERRL, EOMs intact bilaterally and conjunctivae normal Neck full ROM, no lymphadenopathy and supple Lymph Lymphatic: no lymphadenopathy noted Chest inspection of chest normal Resp normal respiratory effort, normal air movement, no use of accessory muscles and clear to auscultation bilaterally Cardio regular rate, regular rhythm, no murmurs and peripheral pulses 2+ throughout GI normal to inspection, nondistended, normoactive bowel sounds, soft to palpation, non-tender and non-distended Back/Spine normal ROM Extremity normal to inspection, full ROM and no pedal edema Skin no rashes or lesions noted Psych mental status grossly normal Assessment & Plan Assessment/Plan (1) NSTEMI, initial episode of care: PLAN: Plan Patient is an 87-year-old male with history of hypertension and asthma who presented to [facility] ED on 03/11/2023 with chest pain. 1. NSTEMI type I, history of contrast allergy Very high likelihood of type I NSTEMI given troponin trend and symptoms. Chest pain started at rest about 40 minutes prior to presentation, was sharp and severe and radiated to right shoulder and into the shoulder blades, also had associated shortness of breath and diaphoresis. Improved on arrival to the ED. Mildly hypertensive on admit, vital signs otherwise stable. Troponin trend of 31 to 662 to 3222. Chest x-ray nonacute. Echo 03/12 showed EF of 40%, akinetic apex of the heart, evidence of diastolic dysfunction, no valvular dysfunction. Started on heparin drip in the ED and given aspirin 325 mg. ? Cardiology consulted. Patient has history of anaphylaxis to MRI contrast, planning for pre-treatment with prednisone and Benadryl with plan for left heart cath with possible intervention tomorrow morning. N.p.o. at midnight. Continue heparin drip. Started on aspirin 81 mg daily, atorvastatin 40 mg at night, Coreg 3.125 mg twice daily. Continued home losartan 100 mg daily. Monitor BP and daily labs. Monitor telemetry. Lipid panel ordered, A1c ordered. Chronic medical conditions: ? Asthma: Continued home long-acting inhaler, albuterol as needed, montelukast. DVT prophylaxis: Heparin drip CODE STATUS: DNR CCA, okay to intubate Expected disposition: Home, 1 to 2 days Total clinical time spent by myself addressing the patient's medical issues, reviewing all the data, and collaborating with patient's care team: 35 minutes. Charges/Coding Visit Charges Inpatient E&M: 33474 Subs Hosp L2
[2023-03-12 19:31] LABS: Partial Thromboplast Time 48.3 Seconds (24.1-36.2)
[2023-03-12] MEDS: predniSONE 20 MG Tablet 50 MG PO (19:59)
[2023-03-12] MEDS: Montelukast 10 MG Tablet PO (22:31)
[2023-03-12] MEDS: MELATONIN 3 MG TABLET PO (22:32)
[2023-03-12] MEDS: Carvedilol 3.125 MG TABLET PO (22:36)
[2023-03-13] VITALS (17 sets, daily range): BP systolic 101–133; BP diastolic 59–98; PULSE 59–86; RESP 16–20; TEMP 35.8–36.8; O2SAT 91–100
[2023-03-13] MEDS: predniSONE 20 MG Tablet 50 MG PO ×2 (02:10→08:46)
[2023-03-13 02:38] LABS: Partial Thromboplast Time 56.8 Seconds (24.1-36.2)
[2023-03-13 03:05] LABS: Anion Gap 6 (5-15); BUN 18 mg/dL (7-18); BUN/Creat Ratio 23.4 RATIO (10-20); Calcium,Total 9.2 mg/dL (8.5-10.1); Chloride 109 mmol/L (98-107); Creatinine, Serum 0.77 mg/dL (0.70-1.30); EST Glomerular Filtration Rate 102 mL/min (>60); Est Glom Filt Rate - Afr Amer 123 mL/min (>60); Estimated Creatinine Clearance 50.49 ml/min; Glucose 155 mg/dL (74-106); Sodium Level 138 mmol/L (136-145)
[2023-03-13] MEDS: HEPARIN/D5w 25,000 UNITS 25,000 UNITS/250 ML IV.SOLN. 9 UNITS CONT INF (04:49)
--- NOTE | 2023-03-13 05:34 | EKG12_ITS ---
Test Reason : AM EKG Blood Pressure : / mmHG Vent. Rate : 089 BPM Atrial Rate : 089 BPM P-R Int : 190 ms QRS Dur : 150 ms QT Int : 402 ms P-R-T Axes : 079 -79 -66 degrees QTc Int : 489 ms Normal sinus rhythm Left axis deviation Right bundle branch block Septal infarct , age undetermined T wave abnormality, consider lateral ischemia Abnormal ECG When compared with ECG of 12-MAR-2023 02:35, MANUAL COMPARISON REQUIRED, DATA IS UNCONFIRMED Confirmed by JOHN WRIGHT, SHAZIA ([id number]), assistant production editor DEISI LANCASTER ([id number]) on 03/21/2023 1:50:04 PM Referred By: Confirmed By:SHAZIA LOPEZ MD
--- NOTE | 2023-03-13 05:55 | EKG12_ITS ---
Test Reason : AM EKG Blood Pressure : / mmHG Vent. Rate : 066 BPM Atrial Rate : 066 BPM P-R Int : 186 ms QRS Dur : 142 ms QT Int : 418 ms P-R-T Axes : 082 -68 -69 degrees QTc Int : 438 ms Normal sinus rhythm Left axis deviation Right bundle branch block Abnormal ECG When compared with ECG of 13-MAR-2023 12:52, MANUAL COMPARISON REQUIRED, DATA IS UNCONFIRMED Confirmed by JOHN WRIGHT, SHAZIA ([id number]), deputy editor in chief DEISI LANCASTER ([id number]) on 03/14/2023 1:39:04 PM Referred By: Confirmed By:SHAZIA LOPEZ MD
[2023-03-13] MEDS: Losartan Potassium 50 MG Tablet 100 MG PO (06:39)
[2023-03-13] MEDS: Aspirin E.C. 81 MG Tablet PO (06:39)
[2023-03-13] MEDS: Carvedilol 3.125 MG TABLET PO ×2 (06:39→20:59)
[2023-03-13] MEDS: Ipratropium/Albuterol Sulfate 3 ML AMPUL.NEB INHALATION ×3 (07:00→19:55)
[2023-03-13] MEDS: DiphenhydrAMINE 25 MG Capsule 50 MG PO (08:46)
[2023-03-13 09:12] LABS: Partial Thromboplast Time 57.5 Seconds (24.1-36.2)
--- NOTE | 2023-03-13 10:34 | NURSING ---
Report called to tutorial laboratory supervisor for pt to have heart cath.
--- NOTE | 2023-03-13 12:15 | EKG12_ITS ---
Test Reason : Blood Pressure : / mmHG Vent. Rate : 073 BPM Atrial Rate : 073 BPM P-R Int : 196 ms QRS Dur : 148 ms QT Int : 440 ms P-R-T Axes : 082 -71 -79 degrees QTc Int : 484 ms Normal sinus rhythm Left axis deviation Right bundle branch block T wave abnormality, consider inferolateral ischemia Abnormal ECG When compared with ECG of 13-MAR-2023 05:34, MANUAL COMPARISON REQUIRED, DATA IS UNCONFIRMED Confirmed by JOHN WRIGHT, SHAZIA ([id number]), research editor DEISI LANCASTER ([id number]) on 03/14/2023 1:40:41 PM Referred By: Confirmed By:SHAZIA LOPEZ MD
[2023-03-13] MEDS: 0.9% Normal Saline (1000mL) 1,000 ML 80 ML IV (13:52)
--- NOTE | 2023-03-13 14:30 | CRPHASE1 ---
Patient Communication Patient Information Former Patient:: Phase I PHII Cardiac Rehab Discussed with Patient:: Yes Guide to Cardiac Rehab Given to Patient:: Yes Cardiac Rehab Facility Choice List Given to Patient:: Yes Communication to Cardiac Rehab Choice Program [facility] CR PHII:: Communication Given to CR Choice Program Other:: Communication Given to CR [employer]:: [facility] Sessions:: 36 sessions - 3 days/wk, 12 weeks Cardiac Rehabilitation Info Program Information Cardiac Rehabilitation Program Information: Cardiac Rehab The cardiac rehab team at [facility] consists of highly skilled exercise physiologists, nurses, respiratory therapists and physicians working together with you. Our purpose is to help you have a full recovery and achieve the goals you set for yourself. Over the years many of our patients have returned to activities they assumed they would never do again! We can help restore your confidence and motivation to make lifestyle changes that can have a significant impact on your health and quality of life! We can help answer questions and concerns you may have about exercise, lifestyle, medications, diet, stress and anxiety which are common following a hospitalization. WE monitor ECG and vital signs during exercise and discuss your progress with you and report to your physician(s). Cardiac Rehab is proven to help reduce readmissions, improve functional capacity and lower recurrence of problems with your heart. Our Cardiac Rehab program is Certified by the [place] [employer] Pulmonary [employer] (AACVPR) and Accredited by the [place] [employer] through our [facility]. You can contact us at . We invite you to call us with your questions or to get started in our program. If you have other questions or concerns be sure to ask your physician/provider during your follow-up visit. WE look forward to seeing you!
--- NOTE | 2023-03-13 14:48 | CL.I_ITS ---
Patient Name: SANTA ARRIAGA Study Date: 03/13/2023 Performing: Ariel Tafoya MD Ht: 67 inches 170.18 cm : 1935 Wt: 158.5 lbs 71.81 kg Age: 87 Gender: male BSA: 1.83 PROCEDURE(S) PERFORMED DC02-(50066)LHC/COR IC12-(18183/C9600)RIAZ W/WO PTCA, SINGLE CORONARY ARTERY CLINICAL PROFILE AND CO-MORBIDITIES Indications: ACS <= 24 hrs Heart Failure: None Stress/Imaging Stress/Image Study Performed: No CAD Presentations: Non-STEMI. Symptom onset Date/Time: Time Not Available CONCLUSIONS CAD as described. Successful PCI of mLAD with RIAZ RECOMMENDATIONS Medical therapy for rest of CAD. If patient has significant symptoms despite maximal medical therapy, PCI of RPL can be considered DESCRIPTION OF PROCEDURE The patient arrived to the procedure lab. The risks and benefits of the procedure as well as a full description of our services here and lack of surgical backup were fully explained to the patient and/or their significant other prior to the catheterization. The Timeout was completed, verifying the correct patient and procedure. The patient's procedural site was prepped and draped in the usual fashion. Local anesthetic was given subcutaneously to right groin region with Lidocaine 2%. Using a modified Seldinger technique, arterial access was obtained via the right femoral artery, with Micropuncture set. Left Coronary Artery selective angiography was performed in multiple views using a 5 Fr. JL4 catheter. Right Coronary Artery selective angiography was then performed in multiple views using a 5 Fr. JR 4 catheterThe images were reviewed and options discussed. A decision was then made to proceed with an Intervention, IVUS or other adjunct procedure. Arterial sheath was exchanged for a 6 Fr Sheath. Guide catheter was exchanged for a ebu3.5 bmw Guide catheter was inserted and engaged into the LCA. BMW Guide wire was advanced to the LAD. 3x15 Balloon catheter was inserted. Balloon catheter was advanced across lesion in the LAD, mid. PTCA balloon inflated at 10 atms for 40 secs. mandy 3x18 Drug Eluting stent was inserted. Drug Eluting stent was advanced across the lesion in the LAD, mid. Angiogram performed pre balloon dilatation. Angiogram performed post balloon dilatation. Angiogram performed pre stent deployment. Angiogram performed post stent deployment. Contrast was injected through the sheath and the Right Iliac and Femoral artery were assessed for possible closure device. The arterial sheath was pulled and a Starclose closure device was deployed for hemostasis CORONARY ANGIOGRAPHY DOMINANCE: Right Dominant LEFT MAIN: Mild luminal irregularities LEFT ANTERIOR DESCENDING ARTERY: PROX LAD: 25 % Stenosis MID LAD: 90 % Stenosis CIRCUMFLEX ARTERY: Mild luminal irregularities RIGHT CORONARY ARTERY: PROX RCA: 25 % Stenosis RT PLV: 80 % Stenosis in the mid to distal portion. Recommend medical treatment for this stenosis at this time INTERVENTION INFORMATION LESION SITE: LAD (Mid) Lesion Complexity: High/C, chronic total occlusion: No, lesion at bifurcation: Yes, thrombus present: No, lesion length: 15 mm, culprit lesion: Yes, Previously treated lesion: No Pre Stenosis: 90 % Pre intervention KIRK flow: 3 PROCEDURE: Drug Eluting Stent with pre dilatation. Post Stenosis: 0 % Post intervention KIRK flow: 3 Lesion Devices: Mims .014 190cm BMW [place] Straight Cordis 6 Fr XB3.5 100cm Guide Catheter Medtronic 6 Fr EBU3.5 100cm Guide Catheter Vascular Solutions 6 Welsh GuideLiner Lucio Sci EMERGE MR 3.00x15 BALLOON Medtronic 3.0 x 18 MANDY FRONTIER RIAZ COMPLICATIONS No Complications PROCEDURE MEDICATIONS Versed 2 mg IV Fentanyl 50 mcg IV Fentanyl 50 mcg IV Fentanyl 25 mcg IV Oxygen: 2 L/min via nasal cannula Heparin 5000 unit(s) IV 03/13/2023 11:24:27 IV Bolus: .9 NaCl 250 ml total 03/13/2023 11:46:30 SUMMARY OF HEMODYNAMIC DATA Time AIR REST ECG 10:27:58 AO 108/72 (89) SA 10:52:26 AO 101/71 (86) 10:52:38 Signed By Ariel Tafoya MD On 03/13/2023 14:47:39 Ariel Tafoya MD
--- NOTE | 2023-03-13 14:55 | CRPH1.INSTRU ---
General Education Discussed with Patient CAD and cardiac anatomy and function:: Patient communicates acknowledgment Explanation of diagnoses and procedures:: Patient communicates acknowledgment Sign/Symptoms of SD:: Patient communicates acknowledgment Antiplatelet therapy: Patient communicates acknowledgment Proper use of NTG-SL: Patient communicates acknowledgment Emergency procedures and activation of EMS: Patient communicates acknowledgment Compliance of all prescribed medications: Patient communicates acknowledgment Smoking Risk Factors Patient Nicotine/Smoking Risk Factors Are:: Cigarettes Recommendations Recommendations Include:: Second-hand smoke recommendation and Previous smoker; encourage continued cessation Response Code Nicotine/Smoking Response Code:: Patient communicates acknowledgment Dyslipidemia Risk Factors Patient Dyslipidemia Risk Factors Are:: Total Cholesterol and LDL Recommendations Recommendations Include:: Lipid profile not available Response Code Dyslipidemia Response Code:: Patient communicates acknowledgment Overweight/Obesity Recommendations Recommendations Include:: Exercise 5-7 times/week Response Code Overweight/Obesity:: Patient communicates acknowledgment Hypertension Recommendations Recommendations Include:: Maintain BP <130/85, DASH dietary guidelines, Decrease/maintain normal body weight and Moderation of ETOH Response Code Hypertension:: Patient communicates acknowledgment Heart Disease Risk Factors Patient Heart Disease Risk Factors Are:: Family history of heart disease < 65 years old Recommendations Recommendations Include:: Educated family members of their risk Response Code Heart Disease Response Code:: Patient communicates acknowledgment Diabetes Risk Factors Patient Diabetes Risk Factors Are:: No documented hx of diabetes Recommendations Recommendations Include:: Maintain fasting blood sugars 70-110 md/dL, Maintain HgbA1c of 6% or less, Monitor blood sugar as prescribed, Diabetic dietary guidelines and Decrease/maintain body weight Response Code Diabetes:: Patient communicates acknowledgment Metabolic Syndrome Risk Factors Patient Metabolic Syndrome Risk Factors Are [3 of 5]:: Fasting blood sugar > 100 mg/dL, Hypertension and Low HDL <40 [male] or < 50 [female] Recommendations Recommendations Include:: Encouraged follow-up with Primary Care Physician Response Code Metabolic Syndrome Response Code:: Patient communicates acknowledgment Sedentary Risk Factors Patient Sedentary Risk Factors Are:: Lack of regular exercise Recommendations Recommendations Include:: Aerobic exercise 5-7 times/week for 20-30 minutes continuously Response Code Sedentary Response Code:: Patient communicates acknowledgment Stress Response Code Stress Response Code:: Patient communicates acknowledgment
--- NOTE | 2023-03-13 17:18 | PCM.PN.HOSP ---
Reason for Visit Reason for Visit: Diagnoses Non-ST elevation (NSTEMI) myocardial infarction (03/11/23) Subjective Subjective Patient seen at bedside this afternoon after his left heart cath this morning. States he tolerated the procedure well. Noted that he thinks he had 1 stent placed, cath report was unavailable when I saw the patient. Patient was sitting comfortably in bed and talking on his cell phone to a family member when I entered the room. Denies any acute pain or discomfort at this time. Denies any chest pain or shortness of breath. Denies any fevers or chills. No other acute concerns currently. Objective Data Objective Data Vital Signs: Vital Signs Temp Pulse Resp BP Pulse Ox O2 Del Method 98.2 F 76 18 128/98 H 96 Room Air 03/13/23 16:00 03/13/23 16:00 03/13/23 16:00 03/13/23 16:00 03/13/23 16:00 03/13/23 16:00 Oxygen Delivery Method Room Air Weight: 71.809 kg Body Mass Index (BMI) 24.7 Intake & Output: Intake and Output for Last 24 Hours 03/11/23 03/12/23 03/13/23 23:59 23:59 23:59 Intake Total 646.52 / 846.52 438.85 / 438.85 Balance 646.52 / 846.52 438.85 / 438.85 Lab / Micro Data 03/14/23 05:44 03/14/23 05:44 Labs: Laboratory Results - last 24 hr 03/12/23 19:10: APTT 48.3 H 03/13/23 02:15: APTT 56.8 H, Sodium 138, Potassium 4.0, Chloride 109 H, Carbon Dioxide 23.0, Anion Gap 6, BUN 18, Creatinine 0.77, Estim Creat Clear Calc 50.49, Est GFR (MDRD) Af Amer 123, Est GFR (MDRD) Non-Af 102, BUN/Creatinine Ratio 23.4 H, Glucose 155 H, Calcium 9.2 03/13/23 08:35: APTT 57.5 H Physical Exam Const alert, oriented x3, no apparent distress, average body habitus, healthy appearing and well nourished Constitutional Narrative: Pleasant elderly male, sitting comfortably in bed, conversing normally, no acute distress. General Appearance: cooperative and comfortable HEENT normocephalic, head/scalp atraumatic, hearing grossly normal bilaterally, nasal mucous membranes and turbinates normal and moist oral mucous membranes Eyes PERRL, EOMs intact bilaterally and conjunctivae normal Neck full ROM, no lymphadenopathy and supple Lymph Lymphatic: no lymphadenopathy noted Chest inspection of chest normal Resp normal respiratory effort, normal air movement, no use of accessory muscles and clear to auscultation bilaterally Cardio regular rate, regular rhythm, no murmurs and peripheral pulses 2+ throughout GI normal to inspection, nondistended, normoactive bowel sounds, soft to palpation, non-tender and non-distended Back/Spine normal ROM Extremity normal to inspection, full ROM and no pedal edema Skin no rashes or lesions noted Psych mental status grossly normal Assessment & Plan Assessment/Plan (1) NSTEMI, initial episode of care: PLAN: Plan Patient is an 87-year-old male with history of hypertension and asthma who presented to [facility] ED on 03/11/2023 with chest pain. 1. NSTEMI type I, history of contrast allergy High likelihood of type I NSTEMI given troponin trend and symptoms. Chest pain started at rest about 40 minutes prior to presentation, was sharp and severe and radiated to right shoulder and into the shoulder blades, also had associated shortness of breath and diaphoresis. Improved on arrival to the ED. Mildly hypertensive on admit, vital signs otherwise stable. Troponin trend of 31 to 662 to 3222. Chest x-ray nonacute. Echo 03/12 showed EF of 40%, akinetic apex of the heart, evidence of diastolic dysfunction, no valvular dysfunction. Started on heparin drip in the ED and given aspirin 325 mg. ? Cardiology following. S/p left heart cath on 03/13 with successful PCI of mLAD with RIAZ. Also found to have an 80% stenosis in mid to distal portion of RCA, cardiology recommended medical management for this. Continue aspirin, atorvastatin, Coreg, home losartan. Brilinta started for dual antiplatelet therapy. Remain stable overnight, likely okay for discharge home tomorrow with outpatient cardiology follow-up. Chronic medical conditions: ? Asthma: Continued home long-acting inhaler, albuterol as needed, montelukast. DVT prophylaxis: Lovenox CODE STATUS: DNR CCA, okay to intubate Expected disposition: Home, 1 to 2 days Total clinical time spent by myself addressing the patient's medical issues, reviewing all the data, and collaborating with patient's care team: 35 minutes.
[2023-03-13] MEDS: MELATONIN 3 MG TABLET PO (20:58)
[2023-03-13] MEDS: Montelukast 10 MG Tablet PO (20:58)
[2023-03-13] MEDS: TICAGRELOR 90 MG TABLET PO (20:58)
[2023-03-13] MEDS: Atorvastatin Calcium 40 MG Tablet PO (20:59)
[2023-03-13] MEDS: Fluticasone 0.05% 1 SPRAY NASAL.SRY 2 SPRAY NASAL (20:59)
[2023-03-14 02:44] VITALS: BP 130/80; PULSE 73; RESP 18; TEMP 35.9; O2SAT 97
[2023-03-14 06:08] LABS: Hematocrit 41.7 % (40-54); Hemoglobin 13.8 g/dL (13.0-16.5); Mean Corp Hgb Conc 33.1 g/dL (32-36); Mean Corpuscular Hgb 31.4 pg (27.0-32.0); Mean Corpuscular Volume 94.8 fL (80-94); Mean Platelet Vol. 9.5 fl (6.2-12.0); Platelet Count 254 K/mm3 (150-450); RBC Distribution Width CV 12.8 % (11.6-14.6); RBC Distribution Width SD 44.9 fl (35.1-43.9); White Blood Count 12.3 K/mm3 (4.4-11.0)
[2023-03-14 06:48] LABS: ALB/GLOB Ratio 1.1 RATIO (0.9-2.4); AST(SGOT) 17 U/L (15-37); Alanine Aminotransfer ALT/SGPT 19 U/L (16-61); Albumin, Serum 3.3 g/dL (3.2-5.0); Alkaline Phosphatase 72 U/L (45-117); Anion Gap 6 (5-15); BUN 24 mg/dL (7-18); BUN/Creat Ratio 31.7 RATIO (10-20); Calcium,Total 9.1 mg/dL (8.5-10.1); Chloride 110 mmol/L (98-107); Creatinine, Serum 0.76 mg/dL (0.70-1.30); EST Glomerular Filtration Rate 104 mL/min (>60); Est Glom Filt Rate - Afr Amer 126 mL/min (>60); Estimated Creatinine Clearance 50.49 ml/min; Glucose 107 mg/dL (74-106); Potassium 3.6 mmol/L (3.5-5.1); Protein, Total 6.3 g/dL (6.4-8.2); Sodium Level 141 mmol/L (136-145)
[2023-03-14 07:32] VITALS: O2SAT 95
[2023-03-14 09:15] VITALS: BP 108/74; PULSE 66; RESP 16; TEMP 36.8; O2SAT 94
[2023-03-14] MEDS: Enoxaparin 40 MG/0.4 ML Syringe SC (09:19)
[2023-03-14] MEDS: Loratadine 10 MG Tablet PO (09:20)
[2023-03-14] MEDS: Losartan Potassium 50 MG Tablet 100 MG PO (09:20)
[2023-03-14] MEDS: Aspirin E.C. 81 MG Tablet PO (09:20)
[2023-03-14] MEDS: TICAGRELOR 90 MG TABLET PO (09:20)
[2023-03-14] MEDS: Carvedilol 3.125 MG TABLET PO (10:27)
--- NOTE | 2023-03-14 11:45 | DCINST_ITS ---
Discharge Instructions Diet Discharge Diet: 1999 Calorie Control Diet Activity Discharge Activity: Return to Normal Activity Weight Bearing Status: Full weight bearing Follow Up Care Please Follow Up With: Michael Moran MD When: As needed Test Results: Test results from this visit will be discussed in further detail at your follow- up appointment, if applicable. Pending Tests Upon Discharge: None Discharge Plan Admission Admit Date/Time: 03/11/23 23:38 Attending Provider: Uriel Osborn Primary Care Provider: Michael Moran Consulting Providers: Yari Tafoya; Sam Prajapati Instructions Additional Instructions / Restrictions: Please start taking the following medications: ? Aspirin 81 mg daily ? Atorvastatin 40 mg at night ? Brilinta 90 mg twice daily ? Carvedilol 3.125 mg twice daily Continue all other home medications as previously prescribed. The cardiology office and cardiac rehab office will call to schedule you for follow-up appointments in the near future. Follow-up with your primary care doctor as needed. Discharge Orders/Prescriptions Prescriptions: New aspirin 81 mg Tablet,Delayed Release (Dr/Ec) 81 mg PO BREAKFAST 30 Days Qty: 30 2RF atorvastatin 40 mg Tablet 40 mg PO QHS 30 Days Qty: 30 2RF carvedilol 3.125 mg Tablet 3.125 mg PO BID 30 Days Qty: 60 2RF Brilinta 90 mg Tablet 90 mg PO BID 30 Days Qty: 60 2RF Continued montelukast 10 mg tablet 10 mg PO QHS albuterol sulfate [ProAir HFA] 90 mcg/actuation HFA aerosol inhaler 2 puff inhalation Q6H PRN (Reason: copd) Stiolto Respimat 2.5-2.5 mcg/actuation mist 2 inh inhalation DAILY Qty: 4 2RF flunisolide 1 SPRAY spray,non-aerosol 1 spray intranasal BID Allergy Relief (cetirizine) 10 MG capsule 10 mg PO QODAY melatonin-pyridoxine (vit B6) 1 EACH tablet 1 ea PO QHS losartan 50 mg tablet 100 mg PO DAILY Referrals / Follow Up: Michael Moran MD [Primary Care Provider] - Disposition Disposition (needs filled in before D/C Order can be placed): Home, Self Care
--- NOTE | 2023-03-14 11:49 | DS.PCM_ITS ---
Providers Date of Admission: 03/11/23 Date of Discharge: 03/14/23 Primary Care Physician: Dr. Michael Moran MD Consultations 03/12/23 01:46 Consult: Cardiology Routine Consulting Provider: Yari Tafoya Reason for Consult: NSTEMI EMERGENT Consult: No MD Notified: Yes Date Notified: 03/11/23 Time Notified: 23:45 Method of Notification: ED Physician Initiated Method of Consult:: In-Person Reason For Visit: NSTEMI Diagnosis Discharge Diagnosis (1) NSTEMI, initial episode of care: Status: Acute Code(s): I21.4 - Non-ST elevation (NSTEMI) myocardial infarction Medications at Discharge Home Medications cetirizine 10 mg capsule (Allergy Relief (cetirizine)) 10 mg PO QODAY allergy 09/13/15 flunisolide 25 mcg (0.025 %) nasal spray 1 spray intranasal BID nasal spray 09/13/15 melatonin 3 mg-pyridoxine (vitamin B6) 2 mg tablet 1 ea PO QHS sleep 09/13/15 albuterol sulfate 90 mcg/actuation aerosol inhaler (ProAir HFA) 2 puff i nhalation Q6H PRN copd 07/19/21 losartan 50 mg tablet 100 mg PO DAILY bp 07/19/21 montelukast 10 mg tablet 10 mg PO QHS allergy 07/19/21 tiotropium 2.5 mcg-olodaterol 2.5 mcg/actuation mist for inhalation (Stiolto Respimat) 2 inh inhalation DAILY breathing #4 grams 05/24/22 aspirin 81 mg tablet,delayed release 81 mg PO BREAKFAST 30 days #30 tabs 03/14/23 atorvastatin 40 mg tablet 40 mg PO QHS 30 days #30 tabs 03/14/23 carvedilol 3.125 mg tablet 3.125 mg PO BID 30 days #60 tabs 03/14/23 ticagrelor 90 mg tablet (Brilinta) 90 mg PO BID 30 days #60 tabs 03/14/23 Hospital Course Operations None Procedures Cardiac catheterization, EKG, Transthoracic echo and - (Chest x-ray) Summary of Care Provided Minutes Spent on Discharge: 35 Hospital Course: Patient is an 87-year-old male with history of hypertension and asthma who pre sented to [facility] ED on 03/11/2023 with chest pain. Short hospital course with medical concerns addressed as below. NSTEMI type I, acute HFrEF, history of contrast allergy: Patient presented with chest pain that started at rest about 40 minutes prior to presentation. Troponin trend of 31 to 662 to 3222. Echo on 03/12 showed an EF of 40%, akinetic apex of the heart, evidence of diastolic dysfunction, no valvular dysfunction. Cardiology followed. Patient notably had a noted history of severe anaphylaxis to MRI contrast, had allergy protocol with prednisone and Benadryl given before left heart cath and had no issues with IV contrast. S/p left heart cath on 03/13 with successful PCI of mLAD with RIAZ. Also found to have an 80% stenosis in mid to distal portion of RCA, cardiology recommended medical management for this. Continue home losartan on discharge. We will start aspirin, atorvastatin, Brilinta, and Coreg as well on discharge. Will need outpatient cardiology follow-up shortly after discharge. Discharge diagnoses: ? NSTEMI type I ? CAD s/p PCI x1 ? Acute HFrEF ? History of contrast allergy Total clinical time spent by myself addressing the patient's discharge needs: 35 minutes. Physical Exam Const alert, oriented x3, no apparent distress, average body habitus, healthy appearing and well nourished Constitutional Narrative: Pleasant elderly male, sitting comfortably in bed, conversing normally, no acute distress. General Appearance: cooperative and comfortable HEENT normocephalic, head/scalp atraumatic, hearing grossly normal bilaterally, nasal mucous membranes and turbinates normal and moist oral mucous membranes Eyes PERRL, EOMs intact bilaterally and conjunctivae normal Neck full ROM, no lymphadenopathy and supple Lymph Lymphatic: no lymphadenopathy noted Chest inspection of chest normal Resp normal respiratory effort, normal air movement, no use of accessory muscles and clear to auscultation bilaterally Cardio regular rate, regular rhythm, no murmurs and peripheral pulses 2+ throughout GI normal to inspection, nondistended, normoactive bowel sounds, soft to palpation, non-tender and non-distended Back/Spine normal ROM Extremity normal to inspection, full ROM and no pedal edema Skin no rashes or lesions noted Psych mental status grossly normal Weight / BMI Weight Weight: 71.809 kg Body Mass Index (BMI) 24.7 ABG / Lab / Microbiology Data 03/14/23 05:44 03/14/23 05:44 Laboratory: Laboratory Results - last 24 hr 03/14/23 05:44: WBC 12.3 H, RBC 4.40 L, Hgb 13.8, Hct 41.7, MCV 94.8 H, MCH 31.4, MCHC 33.1, RDW Std Deviation 44.9 H, RDW Coeff of Horace 12.8, Plt Count 254, MPV 9.5, Sodium 141, Potassium 3.6, Chloride 110 H, Carbon Dioxide 25.0, Anion Gap 6, BUN 24 H, Creatinine 0.76, Estim Creat Clear Calc 50.49, Est GFR (MDRD) Af Amer 126, Est GFR (MDRD) Non-Af 104, BUN/Creatinine Ratio 31.7 H, Glucose 107 H, Calcium 9.1, Total Bilirubin 0.90, AST 17, ALT 19, Alkaline Phosphatase 72, Total Protein 6.3 L, Albumin 3.3, Globulin 3.0, Albumin/Globulin Ratio 1.1 D/C Instructions Discharge Diet: 2000 Calorie Control Diet Weight Bearing Status: Full weight bearing Pending Tests Upon Discharge: None Please Follow Up With: Michael Moran MD When: As needed Meaningful Use Info Meaningful Use Diagnoses (Choose all that apply): None applicable Discharge Plan Admission Admit Date/Time: 03/11/23 23:38 Attending Provider: Uriel Osborn Primary Care Provider: Michael Moran Consulting Providers: Yari Tafoya; Sam Prajapati Instructions Additional Instructions / Restrictions: Please start taking the following medications: ? Aspirin 81 mg daily ? Atorvastatin 40 mg at night ? Brilinta 90 mg twice daily ? Carvedilol 3.125 mg twice daily Continue all other home medications as previously prescribed. The cardiology office and cardiac rehab office will call to schedule you for follow-up appointments in the near future. Follow-up with your primary care doctor as needed. Discharge Orders/Prescriptions Prescriptions: New aspirin 81 mg Tablet,Delayed Release (Dr/Ec) 81 mg PO BREAKFAST 30 Days Qty: 30 2RF atorvastatin 40 mg Tablet 40 mg PO QHS 30 Days Qty: 30 2RF carvedilol 3.125 mg Tablet 3.125 mg PO BID 30 Days Qty: 60 2RF Brilinta 90 mg Tablet 90 mg PO BID 30 Days Qty: 60 2RF Continued montelukast 10 mg tablet 10 mg PO QHS albuterol sulfate [ProAir HFA] 90 mcg/actuation HFA aerosol inhaler 2 puff inhalation Q6H PRN (Reason: copd) Stiolto Respimat 2.5-2.5 mcg/actuation mist 2 inh inhalation DAILY Qty: 4 2RF flunisolide 1 SPRAY spray,non-aerosol 1 spray intranasal BID Allergy Relief (cetirizine) 10 MG capsule 10 mg PO QODAY melatonin-pyridoxine (vit B6) 1 EACH tablet 1 ea PO QHS losartan 50 mg tablet 100 mg PO DAILY Referrals / Follow Up: Michael Moran MD [Primary Care Provider] - Yari Tafoya MD [Med Staff - Active Staff] - Disposition Disposition (needs filled in before D/C Order can be placed): Home, Self Care Charges/Coding Visit Charges Inpatient E&M: 19033 Disch Hosp >30min
--- NOTE | 2023-03-14 12:10 | CASEMGMT ---
Patient discharging today. Patient has prescription for Brilinta. RN CM in to discuss needs, patient denies needs at discharge. Brilinta savings card provided to patient. Patient had no further questions or concerns.
== END 2023-03-14 13:27 | disposition home or self-care (01) | DRG 322 ==
LOC: ED 21:31 → PCU 03-12 01:37
PROVIDERS: Specialist; Admitting Provider Hospitalist; Emergency Provider Student in an Organized Health Care Education/Training Program; PCP Family Medicine; Visit Provider Hospitalist
DX: I21.4 Non-ST elevation (NSTEMI) myocardial infarction (principal); E78.5 Hyperlipidemia, unspecified; J44.9 Chronic obstructive pulmonary disease, unspecified; I10 Essential (primary) hypertension; K21.9 Gastro-esophageal reflux disease without esophagitis; N40.0 Benign prostatic hyperplasia without lower urinary tract symptoms; Z66 Do not resuscitate; Z79.51 Long term (current) use of inhaled steroids; Z79.82 Long term (current) use of aspirin; Z91.041 Radiographic dye allergy status; Z87.891 Personal history of nicotine dependence
CPT/HCPCS: 36415; 71045; 80048; 80053; 80061; 83036; 84443; 84484; 85025; 85027; 85610; 85730; 92928; 93005; 93306; 93454; 94640; 99152; 99153; 99252; 99283; J7030; J7040; Q9967; A4216; C1725; C1760; C1769; C1874; C1887; C9600; G0463; J1327

== ENCOUNTER → 2023-03-28 | Outpatient (CLI) | payer MEDICARE, SELFPAY ==
[2023-03-28 15:17] LABS: Hemoglobin 13.5 g/dL (13.0-16.5); Mean Corp Hgb Conc 32.9 g/dL (32-36); Mean Corpuscular Hgb 31.7 pg (27.0-32.0); Mean Corpuscular Volume 96.2 fL (80-94); Mean Platelet Vol. 9.3 fl (6.2-12.0); Platelet Count 272 K/mm3 (150-450); RBC Distribution Width CV 12.6 % (11.6-14.6); RBC Distribution Width SD 44.7 fl (35.1-43.9); Red Blood Count 4.26 M/mm3 (4.6-6.2)
[2023-03-28 16:01] LABS: Anion Gap 3 (5-15); BUN 17 mg/dL (7-18); Calcium,Total 8.5 mg/dL (8.5-10.1); Chloride 110 mmol/L (98-107); Creatinine, Serum 0.85 mg/dL (0.70-1.30); EST Glomerular Filtration Rate 91 mL/min (>60); Est Glom Filt Rate - Afr Amer 110 mL/min (>60); Glucose 86 mg/dL (74-106); Potassium 3.9 mmol/L (3.5-5.1); Sodium Level 141 mmol/L (136-145)
[2023-03-28 16:05] LABS: BNP,B-Type NATRIURETIC PEPTIDE 55.7 pg/mL (0-100)
== END | disposition home or self-care (01) ==
LOC: LAB 14:50
PROVIDERS: PCP Family Medicine; Referring Provider Specialist; Visit Provider Specialist
DX: R06.02 Shortness of breath (principal); J44.9 Chronic obstructive pulmonary disease, unspecified; I25.10 Atherosclerotic heart disease of native coronary artery without angina pectoris
CPT/HCPCS: 36415; 80048; 83880; 85027

== ENCOUNTER → 2023-07-16 | Outpatient (CLI) | payer MEDICARE, SELFPAY ==
--- NOTE | 2023-07-16 12:33 | CDU_ITS ---
Reason For Study: elevated risk for CVA, personal history of other diseases of the circulatory system Rt. Velocities/BP Lt. Velocities/BP Prox CCA 92.9/14.5 cm/sec. Prox CCA 98.6/24.9 cm/sec. Mid CCA 91.9/18.2 cm/sec. Mid CCA 77.7/20.0 cm/sec. Dist CCA 55.1/12.6 cm/sec. Dist CCA 56.9/13.9 cm/sec. Prox ICA 50.4/15.4 cm/sec. Prox ICA 49.5/12.6 cm/sec. Mid ICA 119.5/26.2 cm/sec. Mid ICA 54.4/10.2 cm/sec. Dist ICA 77.7/21.2 cm/sec. Dist ICA 82.6/24.9 cm/sec. Rt. ICA/CCA = 1.3. Lt. ICA/CCA = 1.1. Prox ECA 86.3/6.9 cm/sec. Prox ECA 65.4/6.5 cm/sec. Rt. Vert. 45.8/11.4 cm/sec. Lt. Vert. 54.4/12.6 cm/sec. Right Extracranial There is homogeneous, smooth atherosclerotic plaque noted in the right common carotid artery. There is intimal thickening but no significant atherosclerotic plaque noted in the right internal carotid artery. The right internal carotid artery is very tortuous. There is intimal thickening but no significant atherosclerotic plaque noted in the right external carotid artery. Antegrade flow is noted in the right vertebral artery. Left Extracranial There is homogeneous, smooth atherosclerotic plaque noted in the left common carotid artery. There is intimal thickening but no significant atherosclerotic plaque noted in the left internal carotid artery. The left internal carotid artery is very tortuous. There is intimal thickening but no significant atherosclerotic plaque noted in the left external carotid artery. Antegrade flow is noted in the left vertebral artery. Procedure Carotid Duplex [id number]. This is a Carotid Duplex examination using B-mode, color flow and specral Doppler. The exam was diagnostic. Exam performed in department. VL/Carotid Duplex Ultrasound Interpretation Summary Normal right extracranial internal carotid. Normal left extracranial internal carotid. Patent and antegrade vertebrals bilaterally. Ordering Physician: Ron Peck Performed By: Herson Rivera RVT
--- OUTSIDE RECORDS SUMMARY | 2023-07-16 13:52 | XMS RPT_ITS | CCD ---
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 Name Role Phone KHADRA DOWELL Admitting Unavailable KHADRA DOWELL Attending Unavailable VACCARIAIMEE, MELANIE Consulting Unavailable KHADRA DOWELL Primary Care Unavailable PROVIDER, UNKNOWN Consulting Unavailable PROVIDER, UNKNOWN Consulting Unavailable PROVIDER, UNKNOWN Consulting Unavailable KHADRA DOWELL Admitting Unavailable KHADRA DOWELL Attending Unavailable VACCARIELLO, MELANIE Consulting Unavailable KHADRA DOWELL Primary Care Unavailable PROVIDER, UNKNOWN Consulting Unavailable PROVIDER, UNKNOWN Consulting Unavailable PROVIDER, UNKNOWN Consulting Unavailable KHADRA DOWELL Attending Unavailable VACCARIELLO, MELANIE Consulting Unavailable DELMER, KHADRA T Primary Care Unavailable DELMER, KHADRA T Admitting Unavailable PROVIDER, UNKNOWN Consulting Unavailable PROVIDER, UNKNOWN Consulting Unavailable PROVIDER, UNKNOWN Consulting Unavailable VACCARIELLO, MELANIE Consulting Unavailable AMERICO FISCHER DO Admitting Unavailable AMERICO FISCHER DO Attending Unavailable AMERICO FISCHER DO Primary Care Unavailable PROVIDER, UNKNOWN Consulting Unavailable PROVIDER, UNKNOWN Consulting Unavailable PROVIDER, UNKNOWN Consulting Unavailable Unavailable Primary Care Provider Unavailabl e Melanie Moran Primary Care Provider TREVOR RIBEIRO Attending Unavailable TREVOR RIBEIRO Referring Unavailable VACCMELANIE VARGAS Primary Care Unavailable HARIS SUTTON Attending Unavailable VACCMELANIE VARGAS Primary Care Unavailable VACCMELANIE VARGAS Primary Care Unavailable Melanie Moran MD Unavailable Dr. Donald Lentz MD Unavailable Physical Therapy, Cornell Miranda Unavailable Neuro-Surgery Provider Unavailable Unavailab le Infectious Disease Provider Unavailable Unav arnie Ludwig DPM, Dr. Karla Thompson Unavailable Fredo WRIGHT Dr. Kenny ([facility]) Unavailable [phone] [facility] [place] [facility] Unavailable [facility] Unavailable Dimitri WRIGHT, Dr. Jerez ([place] [facility]) A Unavail able Marry BOJORQUEZ, Dr. Bansal Unavailable Howard AVILES, Isabella Unavailable [phone] Enrique MELVIN, Dr. Khadra Gutiérrez Unavailable Robert WRIGHT, Dr. Matias Shen Unavailable [facility] Unavailable [facility] Unavailable Mckenzie FARIAN, Adelina Unavailable Kamlesh WRIGHT, Eric Shen Unavailable Jose FARIAN, Cheryle Unavailable Unavailable Dimitri RUIZ, Winnie Unavailable Vess [employer] ACCESSORIES ATTACHER, Bogdan L Unavailable Unavailable Wepriyanka [employer]ACH[employer] ACCESSORIES ATTACHER, Fabiola Unavailable Unavailabl e Unavailable Unavailable Allergies Allergy Classification Reported Allergen(s) Allergy Type Date of Onset Reaction(s) Facility (1 source) chlorproMAZINE Drug Allergy [facility] Repository (1 source) chlorproMAZINE Drug Allergy [facility] Repository (1 source) Iodine Drug Allergy [facility] Repository (2 sources) chlorproMAZINE Drug Allergy 3 Hives [facility] (2 sources) Iodine Drug Allergy 3 Shortness of breath [facility] (1 source) Iodinated Contrast [employer] [facility] [employer], [email or web address], [email or web address] (1 source) Iodinated Contrast Media [employer], [email or web address], [email or web address] Medications Current Medications Medication Drug Class(es) Dates Sig (Normalized) Sig (Original) 200 actuat albuterol 0.09 mg/actuat dry powder inhaler (1 source) beta2-Adrenergic Agonist ProAir RespiClick 90 mcg/actuation breath activated ; (90 mcg/actuat) aspirin 81 mg delayed release oral tablet (1 source) Platelet Aggregation Inhibitor, Nonsteroidal Anti-inflammatory Drug aspirin 81 mg tablet,delayed release ; 1 daily (81 mg) atorvastatin 40 mg oral tablet (1 source) HMG-CoA Reductase Inhibitor take 1 tablet by mouth at bedtime atorvastatin 40 mg tablet ; 1 at bedtime (40 mg) carvedilol 3.125 mg oral tablet (1 source) alpha-Adrenergic Tea, beta-Adrenergic Tea carvediloL 3.125 mg tablet ; 1 two times daily (3.125 mg) cetirizine hydrochloride 10 mg oral tablet (1 source) Histamine-1 Receptor Antagonist cetirizine 10 mg tablet ; (10 mg) clopidogrel 75 mg oral tablet (1 source) P2Y12 Platelet Inhibitor clopidogreL 75 mg tablet ; (75 mg) dutasteride 0.5 mg oral capsule (3 sources) 5-alpha Reductase Inhibitor Start: 11-17-2022 take 1 capsule by mouth once daily dutasteride (Avodart) 0.5 MG capsule Take 0.5 mg by mouth daily. 0 11/17/2022 Active flunisolide 0.025 mg/actuat metered dose nasal spray (4 sources) Corticosteroid Start: 07-15-2023 flunisolide 25 mcg (0.025 %) nasal spray ; 2 (two) sprays per nostril bid for 0 days Quantity: 1 {Each} Refills: 0 Ordered: 15-Jul-2023 MD Melanie Moran Start: 15-Jul-2023 Completed/Discontinued Medications Medication Drug Class(es) Dates Sig (Normalized) Sig (Original) acetaminophen 325 mg / oxyCODONE hydrochloride 5 mg oral tablet (1 source) Opioid Agonist Start: 02-06-2010 End: 02-16-2010 PERCOCET, 5-325MG (Oral Tablet) ; 1- 2 Tablet q6h prn for 10 days Quantity: 10 {Tablet} Refills: 0 Ordered: 06-Feb-2010 MD Melanie Moran Start: 06-Feb-2010 End: 16-Feb-2010 Status: Inactive Comments: ten tabs Problems Active Problems Problem Classification Problem Date Documented Da te Episodic/Chronic Abdominal hernia (5 sources) Unilateral inguinal hernia, without obstruction or gangrene, not specified as recurrent; Translations: [Right inguinal hernia ] Onset: 2 Episodic Administrative/social admission (3 sources) Repeated prescription; Translations: [Encounter for issue of repeat prescription] 04-11-2015 Episodic Anxiety disorders (1 source) Examination phobia; Translations: [Other specified phobia] 09-06-2010 Chronic Asthma (3 sources) Asthma; Translations: [Unspecified asthma, uncomplicated] 05-10-2023 Chronic Chronic obstructive pulmonary disease and bronchiectasis (5 sources) Chronic obstructive pulmonary disease, unspecified; Translations: [Chronic obstructive lung disease] Onset: 2 05-10-2023 Chronic Chronic obstructive pulmonary disease and bronchiectasis (1 source) Chronic obstructive pulmonary disease and bronchiectasis 05-29-2021 Coronary atherosclerosis and other heart disease (2 sources) History of non-ST segment elevation myocardial infarction; Translations: [Old myocardial infarction] Onset: 3 05-10-2023 Chronic Disorders of lipid metabolism (3 sources) Hyperlipidemia; Translations: [Hyperlipidemia, unspecified] 05-10-2023 Chronic Esophageal disorders (1 source) Gastroesophageal reflux disease; Translations: [Gastro-esophageal reflux disease without esophagitis] 05-10-2023 Chronic Essential hypertension (4 sources) Essential (primary) hypertension; Translations: [Hypertensive disorder] Onset: 2 05-10-2023 Chronic Genitourinary symptoms and ill-defined conditions (10 sources) Foul smelling urine; Translations: [Unspecified abnormal findings in urine] 05-10-2023 Episodic Hyperplasia of prostate (7 sources) Benign prostatic hyperplasia; Translations: [Benign prostatic hyperplasia without lower urinary tract symptoms] 05-10-2023 Chronic Immunizations and screening for infectious disease (2 sources) Requires diphtheria, tetanus and pertussis vaccination; Translations: [Encounter for immunization] 04-24-2010 Episodic Inflammatory conditions of male genital organs (3 sources) Acute prostatitis; Translations: [Acute prostatitis] 01-20-2018 Episodic Malaise and fatigue (4 sources) Fatigue; Translations: [Other fatigue] 05-10-2023 Episodic Miscellaneous mental health disorders (2 sources) Insomnia; Translations: [Primary insomnia] 05-10-2023 Chronic Osteoarthritis (3 sources) Primary osteoarthritis, left ankle and foot; Translations: [Osteoarthrosis, localized, primary, lower leg] Onset: Chronic Other aftercare (1 source) Post-discharge follow-up; Translations: [Encounter for follow-up examination after completed treatment for conditions other than malignant neoplasm] 03-20-2023 Episodic Other aftercare (1 source) Long-term (current) use of other medications 08-14-2010 Episodic Other and unspecified benign neoplasm (2 sources) Neuroma of foot; Translations: [Benign neoplasm of peripheral nerves and autonomic nervous system of lower limb, including hip] 05-10-2023 Episodic Other circulatory disease (1 source) Facial sinus finding; Translations: [Other specified symptoms and signs involving the circulatory and respiratory systems] 05-03-2021 Episodic Other congenital anomalies (1 source) Other specified anomalies of skin 08-14-2010 Chronic Other connective tissue disease (3 sources) Pain in left foot; Translations: [Pain in left foot] 02-06-2023 Episodic Other connective tissue disease (2 sources) Pain in left foot; Translations: [Pain in left foot] Onset: Episodic Other connective tissue disease (1 source) Pain of right lower leg; Translations: [Pain in right lower leg] 01-22-2014 Episodic Other gastrointestinal disorders (2 sources) Chronic constipation; Translations: [Other constipation] 05-10-2023 Episodic Other lower respiratory disease (2 sources) Dyspnea on exertion; Translations: [Other forms of dyspnea] 05-10-2023 Episodic Other lower respiratory disease (3 sources) Rib pain; Translations: [Pleurodynia] 05-10-2023 Episodic Other lower respiratory disease (1 source) Other respiratory abnormalities 07-05-2011 Episodic Other male genital disorders (2 sources) Disorder of male genital organ; Translations: [Hydrocele, unspecified] 05-10-2023 Episodic Other nervous system disorders (2 sources) Median neuropathy; Translations: [Other lesions of median nerve, unspecified upper limb] 05-10-2023 Chronic Other nervous system disorders (2 sources) Peripheral nerve disease ; Translations: [Unspecified mononeuropathy of left upper limb] 05-10-2023 Chronic Other nervous system disorders (2 sources) Ulnar neuropathy; Translations: [Lesion of ulnar nerve, unspecified upper limb] 05-10-2023 Chronic Other nervous system disorders (2 sources) Trigeminal neuralgia; Translations: [Trigeminal neuralgia] 12-29-2010 Episodic Other non-traumatic joint disorders (2 sources) Pain in right knee; Translations: [Pain in joint, lower leg] 05-10-2023 Episodic Other non-traumatic joint disorders (1 source) Knee pain; Translations: [Pain in left knee] 06-14-2010 Episodic Other screening for suspected conditions (not mental disorders or infectious disease) (2 sources) Special screening for malignant neoplasms of colon 07-31-2013 Episodic Other upper respiratory disease (2 sources) Seasonal allergic rhinitis; Translations: [Other seasonal allergic rhinitis] 05-10-2023 Chronic Other upper respiratory infections (2 sources) Acute sinusitis; Translations: [Acute sinusitis, unspecified] 05-29-2021 Episodic Phlebitis; thrombophlebitis and thromboembolism (1 source) Acute thrombosis of superficial vein of right lower extremity; Translations: [Embolism and thrombosis of superficial veins of right lower extremity] 01-22-2014 Episodic Residual codes; unclassified (2 sources) Intolerant of cold; Translations: [Other general symptoms and signs] 05-10-2023 Episodic Residual codes; unclassified (1 source) History of vaccination; Translations: [Personal history of other drug therapy] 05-10-2023 Episodic Past or Other Problems Problem Classification Problem Date Documented Date Episodic/Chronic Other nutritional; endocrine; and metabolic disorders (1 source) Overweight; Translations: [Overweight] Onset: 08-09-2021 Episodic Other nutritional; endocrine; and metabolic disorders (1 source) Body mass index (BMI) 27.0-27.9, adult; Translations: [Body mass index [BMI] 27.0-27.9, adult] Onset: 08-09-2021 Episodic Screening and history of mental health and substance abuse codes (1 source) Personal history of nicotine dependence; Translations: [Personal history of nicotine dependence] Onset: 08-09-2021 Episodic Unclassified (1 source) Cold intolerance - Note for Cold intolerance : -Says he is always cold. He wonders if it is medication related. 05-10-2023 Unclassified (1 source) [ADDITIONAL REASON] Back pain - The onset of the back pain has been gradual and has been occurring for 2 months. Note for Back pain : -he wonders if he has a broken rib. He says Dr Rico once told him he has soft bones. No known injury. He put a lidocaine patch on the area and the pain improved.The cardiology PA told him that his kidneys are fine . He says his urine smells foul ever since his [place] but he cannot give a urine sample at this time. 05-10-2023 Unclassified (1 source) Foot pain - The pain is in the right foot. Note for Foot pain : -States he had a foot fracture 20 yrs ago. Has daily pain and swelling of the right foot. 06-25-2022 Unclassified (1 source) pain - Has persistent rib pain, cannot sleep laying down. Original injury was 01/03.Also has hand numbness and Dr Nunez is out on medical leave and he wants somewhere else to go.Declines flu vaccine. 02-04-2017 Unclassified (1 source) Follow up consultation - The patient is here to follow-up after Emergency Room/Urgent Care ([facility] ER) on : (01/02/2017). Current symptoms include back pain. Note for Consultation follow-up : fell in the garage and landed on a truck battery hitting his midback, severe pain 01-04-2017 Unclassified (1 source) Allergic rhinitis - The onset of the allergic rhinitis has been gradual and has been occurring in a persistent pattern for years. Associated symptoms include nasal stuffiness. Note for Allergic rhinitis : Pt has been using flonase but wants to discuss options with you 01-04-2016 Unclassified (1 source) difficulty urinating - has trouble with the flow of his urine, he also feels a lump on his left testiclehe has had problems for the last 7 years but has been worse in the last month 11-30-2014 Unclassified (1 source) Leg pain - The leg pain began gradually over time and has been occurring for 1 week. The symptoms have been occurring in an increasing pattern. The symptoms are described as a burning sensation, dull ache and sharp, stabbing pain. Note for Leg pain : -Has a varicose vein on that leg. Worried about clot. 01-22-2014 Unclassified (1 source) prostate issues - Complains of pain between my legs and lower back pain. Some urinary difficulty. Has hx of BPH but has stopped med for that. Dr Tuttle did a back treatment and patient does feel better since that. 07-31-2013 Unclassified (1 source) Pre-operative clearance - Note for Pre-operative clearance : cyst, dorsal left foot, 3rd hammertoe by Dr. Pond. 11-10-2011 Unclassified (1 source) several reasons - pt is here for SOB over the last few months, concerned his lungs are full from 50 years of working on [employer], 2)prostate problems, nocturia, urinating small amounts, feels like he is sitting on a ball. 3) back pain. 07-05-2011 Unclassified (1 source) UTI - Symptoms include dysuria, urinary frequency and urinary urgency. The patient describes the pain as burning. Onset was sudden 3 day(s) ago. The patient describes this as moderate in severity and worsening. Symptoms are relieved by non-opioid analgesics. Associated symptoms include fever and chills. Note for UTI : He has c-spine surgery scheduled for later this month. 02-26-2011 Unclassified (1 source) neck pain - pt has c/o neck pain for over one year, had MRI done in the spring. Continues with numbness and tingling across left shoulder and up into the left side of his face. Burning down left neck, now spreading to right side(new) 12-29-2010 Unclassified (1 source) questions about nerves in neck - states he still thinks he has a pinched nerve in his neck. he has burning and tingling on the left side of the chin and jaw to ear, tingling down his left arm. he had an mri in august. 11-08-2010 Unclassified (1 source) 2 things - 1) discuss need for cerivcal mri, claustrophobic and desires sedation. also states he cannot tolerate contrast.2) has 2 moles to check, one axilary and one on back of neck. 08-14-2010 Unclassified (1 source) a few things - 1) pinched nerve in back with radiation of pain and numbness to right leg2) pinched nerve in neck with numbness and tingling in left arm, relieved by holding neck a certain way.3) left knee pain, knows he needs a knee replacement4) left foot pain, seeing dr chamberlain who wants to do surgery but wants to wait until neck problem is solved.states he has many quesitons about types of surgery and possible referrals. 06-14-2010 Unclassified (1 source) Knee Pain - The onset of the knee pain has been gradual and has been occurring in a persistent pattern for months. The course has been constant. The knee pain is moderate. The knee pain is characterized as a dull aching. The knee pain is described as being located in the entire knee. The knee pain is aggravated by physical activity. There were no relieving factors. Previous diagnostic tests include plain radiographs. Previous evalutations were completed by an orthopaedic surgeon (at [facility]). There has been no previous physical therapy. There has been no previous surgeries. There is no use of assistive devices. Previous medications include aspirin. 02-06-2010 Urinary tract infections (2 sources) Urinary tract infections 01-15-2022 Results Test Name Value Interpretation Reference Range Facil ity Vital Signs Date Time Vital Sign Value Performing Clinician Magdieli litelena 05-10-2023 09:28-0500 Body height 175.26 cm [facility] Work Phone: [facility]; [employer] 05-10-2023 09:28-0500 Body mass index (BMI) [Ratio] 24.22 kg/m2 [facility] Work Phone: [employer]; [employer]. 05-10-2023 09:28-0500 Body surface area Derived from formula 1.[facility] Work Phone: [employer]; [employer] 05-10-2023 09:28-0500 Body weight 74.39 kg [facility] Work Phone: [employer]. 05-10-2023 09:28-0500 Diastolic blood pressure 81 mm[Hg] [facility] Work Phone: [employer]; [employer] Encounters Encounter Date Encounter Type Care Provider Facility Start: 05-10-2023 End: 05-10-2023 Patient encounter procedure Melanie Moran MD Work Phone: [facility] Start: 03-20-2023 End: 03-19-2023 Historical Summary Melanie Moran MD Work Phone: [employer] [employer] Start: 03-20-2023 End: 03-20-2023 Patient encounter procedure Melanie Moran MD Work Phone: [employer]. Start: 03-01-2023 End: 03-02-2023 ambulatory TREVOR RIBEIRO [facility] Start: 03-01-2023 End: 03-01-2023 Subsequent hospital visit by physician Trevor DUPONT Work Phone: [facility] Radiology Procedures Date Procedure Procedure Detail Performing Clinician Start: 02-24-2023 End: 02-24-2023 Heart Cath Adelina Rincon [employer] Work Phone: Start: 02-24-2023 End: 02-24-2023 Transesophogeal Echo Adelina Rincon [employer] Work Phone: Plan of Treatment Date Care Activity Detail Author Start: 02-22-2023 End: 02-07-2024 XR Foot - left 3 Views XR foot 3+ views left Imaging Routine Left foot pain Expected: 02/22/2023, Expires: 02/07/2024 [facility] Work Phone: Immunizations Immunization Date Immunization Notes Care Provider Fa cility 07-27-2020 COVID-Moderna (100 MCG/0.5 ML) Melanie Moran MD Work Phone: [employer]. 06-29-2020 COVID-Moderna (100 MCG/0.5 ML) Melanie Moran MD Work Phone: [employer]. 02-24-2019 influenza virus vaccine, unspecified formulation Melanie Moran MD Work Phone: [employer], [email or web address] Payers Date Payer Category Payer Medicare [id number] 2022 [place] [employer]IM[place] MEDICARE [id number] 2022-Present [address] [place] [address] Medicare HMO [id number] 1935 Unknown [id number] 1935 Unknown [id number] 1937 Unknown [id number] 1935 Unknown [id number] Unknown AULTC[employer] - PRIMETIME Social History Date Type Detail Facility Tobacco smoking stat [facility] Tobacco smoking consumption unknown [facility] Start: 1935 Sex Assigned At Not on file [facility] Gender identity Not on file [facility] Spouse Spouse [employer] [facility]; [facility] Tobacco Use: Tobacco Use: ; F ormer smoker. [facility]; [facility] Male [facility]; [facility] Work Phone: Ex-smoker [employer]; [employer] Work Phone: Evaluation note Note Date & Type Note Facility documented in this encounter [facility] Evaluation note Note Date & Type Note Facility documented in this encounter [facility] Health Summary Purpose Family History No Family History Records FoundNo Family History Records FoundNo Family History Records FoundNo Family History Records Found Advance Directives No Advanced Directives Records FoundNo Advanced Directives Records FoundNo Advanced Directives Records FoundNo Advanced Directives Records Found Additional Source Comments (unrecognized sect ion and content) No Status Records FoundNo Status Records FoundNo Status Records FoundNo Status Records Found INFORMATION SOURCE (unrecogn ized section and content) DATE CREATED AUTHOR AUTHOR'S ORGANIZ ATION [facility] DATE CREATED AUTHOR AUTHOR'S ORGANIZ ATION 03/05/2023 [facility] DATE CREATED AUTHOR AUTHOR'S ORGANIZ ATION 05/13/2023 [facility] Care Teams (unrecognized sec tion and content) FOR RECORDS PERTAINING TO PATIENTS WHO ARE OR HAVE BEEN ENROLLED IN A CHEMICAL DEPENDENCY/SUBSTANCEABUSE PROGRAM, SOME INFORMATION MAY BE OMITTED. This clinical summary was aggregated from multiple sources. Caution should be exercised in using it in the provision of clinical care. This summary normalizes information from multiple sources, and as a consequence, information in this document may materially change the coding, format and clinical context of patient data. In addition, data may be omitted in some cases. CLINICAL DECISIONS SHOULD BE BASED ON THE PRIMARY CLINICAL RECORDS. [facility] [employer] [facility]. provides no warranty or guarantee of the accuracy or completeness of information in this document.
== END | disposition home or self-care (01) ==
PROVIDERS: PCP Family Medicine; Referring Provider Internal Medicine Cardiovascular Disease; Visit Provider Internal Medicine Cardiovascular Disease
DX: I10 Essential (primary) hypertension (principal); E78.2 Mixed hyperlipidemia; I25.5 Ischemic cardiomyopathy; R42 Dizziness and giddiness; Z91.89 Other specified personal risk factors, not elsewhere classified; Z86.79 Personal history of other diseases of the circulatory system
CPT/HCPCS: 93880

== ENCOUNTER → 2023-08-01 | Outpatient (CLI) | payer MEDICARE, SELFPAY ==
--- NOTE | 2023-08-01 12:00 | ECHOD_ITS ---
Reason For Study: CAD Procedure This was a 2D Doppler, Color Flow transthoracic echocardiogram. Exam performed in department. Left Ventricle Normal LV size. Mild concentric left ventricular hypertrophy. The left ventricular ejection fraction is 50 %. Normal diastology for age. Right Ventricle Normal right ventricle. Atria The left atrium is mildly enlarged. Normal right atrium. Mitral Valve Mild (1+) mitral valve insufficiency. Tricuspid Valve Mild tricuspid valve insufficiency. Normal pulmonary artery pressure. Aortic Valve Aortic sclerosis, no stenosis. Pulmonic Valve The pulmonic valve is not well visualized. Great Vessels Mildly dilated aortic root. Pericardium/Pleural No pericardial effusion. MMode/2D Measurements & Calculations LVIDd: 4.8 cm IVSd: 1.1 cm Ao root diam: 3.7 cm LVIDs: 3.0 cm LVPWd: 1.2 cm RVDd: 3.5 cm FS: 36.1 % LAV(MOD-bp): 61.6 ml LVAd ap4: 31.7 cm2 LVAd ap2: 31.4 cm2 LAV(MOD-bp) Indexed: 33.3 ml/m2 LVLd ap4: 8.4 cm LVLd ap2: 8.5 cm LAV(MOD-sp2): 75.5 ml EDV(MOD-sp4): 100.4 ml EDV(MOD-sp2): 100.0 ml LAV(MOD-sp4): 47.0 ml EDV(sp4-el): 102.0 ml EDV(sp2-el): 98.4 ml LVAs ap4: 20.5 cm2 LVAs ap2: 19.2 cm2 LVLs ap4: 7.3 cm LVLs ap2: 7.6 cm ESV(MOD-sp4): 48.3 ml ESV(MOD-sp2): 42.2 ml ESV(sp4-el): 48.5 ml ESV(sp2-el): 41.4 ml EF(MOD-sp4): 51.9 % EF(MOD-sp2): 57.8 % EF(sp4-el): 52.5 % SV(MOD-sp4): 52.1 ml SV(MOD-sp2): 57.7 ml SV(sp4-el): 53.5 ml LA dimension(2D): 3.3 cm LA A4 area: 17.3 cm2 RA A4 area: 13.9 cm2 TAPSE: 1.6 cm Time Measurements MV dec time: 0.22 sec Doppler Measurements & Calculations MV E max baljeet: 60.0 cm/sec Lat Peak E' Baljeet: 6.9 cm/sec Med Peak E' Baljeet: 5.3 cm/sec MV A max baljeet: 66.7 cm/sec E/E' lat: 8.7 E/E' med: 11.3 MV E/A: 0.90 MV dec slope: 275.3 cm/sec2 Ao V2 max: 134.3 cm/sec LV V1 max: 102.3 cm/sec Ao max P.2 mmHg LV V1 max P.2 mmHg Ao V2 mean: 92.1 cm/sec LV V1 mean P.3 mmHg Ao mean P.9 mmHg LV V1 mean: 70.8 cm/sec Ao V2 VTI: 34.3 cm LV V1 VTI: 25.3 cm AV (velocity ratio): 0.74 PA V2 max: 72.0 cm/sec TR max baljeet: 187.9 cm/sec TR max P.1 mmHg ECHO/Echo Complete Interpretation Summary Mild concentric left ventricular hypertrophy. The left ventricular ejection fraction is 50 %. The left atrium is mildly enlarged. Mild (1+) mitral valve insufficiency. Aortic sclerosis, no stenosis. Ordering Physician: Michael Wilkins Referring Physician: MD Michael Eubanks Performed By: Namita Xavier RDCS
== END | disposition home or self-care (01) ==
LOC: CVS 12:00
PROVIDERS: PCP Family Medicine; Referring Provider Nurse Practitioner Family; Visit Provider Nurse Practitioner Family
DX: I10 Essential (primary) hypertension (principal); R06.02 Shortness of breath
CPT/HCPCS: 93306

== ENCOUNTER → 2023-08-21 | Outpatient (CLI) | payer MEDICARE, SELFPAY ==
--- NOTE | 2023-08-21 13:53 | RAD_ITS ---
EXAM: XR CHEST, 2 VIEWS CLINICAL INDICATION: Shortness of breath TECHNIQUE: Frontal and lateral views of the chest. COMPARISON: 03/11/2023 FINDINGS: LUNGS AND PLEURAL SPACES: Hyperinflated lungs with diffuse interstitial prominence likely secondary to COPD. No focal pneumonia. No pneumothorax. No effusion. HEART: No significant abnormality. Cardiac silhouette not enlarged. MEDIASTINUM: Central airways and mediastinal contour are unremarkable. BONES/JOINTS: Degenerative changes in the spine and shoulders. No acute fracture. SOFT TISSUES: No significant abnormality. VASCULATURE: Atherosclerosis. RAD/Chest PA and Lateral IMPRESSION: Hyperinflated lungs with diffuse interstitial prominence likely secondary to COPD. No focal pneumonia. Electronically Signed: William Pearl DO at 23:37 EDT ,
[2023-08-21 14:37] LABS: Absolute Lymphocyte Count 1.09 X10^3/uL (0.83-4.51); Absolute Neutrophil Count 4.2 X10^3/uL (2.0-7.7); Basophil# 0.05 X10^3/uL; Basophil% 0.8 % (0-1); Eosinophil# 0.23 X10^3/uL; Eosinophils% 3.6 % (0-5); Hematocrit 43.7 % (40-54); Lymphocyte # 1.09 X10^3/ul (0.83-4.51); Lymphocyte % 17.2 % (19-41); Mean Corpuscular Volume 96.9 fL (80-94); Mean Platelet Vol. 9.9 fl (6.2-12.0); Monocyte# 0.76 X10^3/uL; NRBC Flagged by Analyzer 0 % (0-5); Neutrophil % 66.2 % (47-70); Platelet Count 246 K/mm3 (150-450); RBC Distribution Width CV 12.7 % (11.6-14.6); RBC Distribution Width SD 44.9 fl (35.1-43.9); Red Blood Count 4.51 M/mm3 (4.6-6.2); White Blood Count 6.3 K/mm3 (4.4-11.0)
[2023-08-21 14:58] LABS: BNP,B-Type NATRIURETIC PEPTIDE 35.1 pg/mL (0-100)
[2023-08-21 15:09] LABS: ALB/GLOB Ratio 1.2 RATIO (0.9-2.4); AST(SGOT) 17 U/L (15-37); Alanine Aminotransfer ALT/SGPT 31 U/L (16-61); Albumin, Serum 3.4 g/dL (3.2-5.0); Alkaline Phosphatase 107 U/L (45-117); Anion Gap 3 (5-15); BUN 19 mg/dL (7-18); BUN/Creat Ratio 25.2 RATIO (10-20); Calcium,Total 9.1 mg/dL (8.5-10.1); Chloride 109 mmol/L (98-107); Creatinine, Serum 0.75 mg/dL (0.70-1.30); EST Glomerular Filtration Rate 104 mL/min (>60); Est Glom Filt Rate - Afr Amer 126 mL/min (>60); Globulin 2.8 g/dL (2.2-4.2); Glucose 83 mg/dL (74-106); Potassium 4.3 mmol/L (3.5-5.1); Protein, Total 6.2 g/dL (6.4-8.2); Sodium Level 142 mmol/L (136-145)
== END | disposition home or self-care (01) ==
PROVIDERS: PCP Family Medicine; Referring Provider Nurse Practitioner Family; Visit Provider Nurse Practitioner Family
DX: R06.02 Shortness of breath (principal); J44.9 Chronic obstructive pulmonary disease, unspecified; I25.5 Ischemic cardiomyopathy
CPT/HCPCS: 36415; 71046; 80053; 83880; 85025

== ENCOUNTER → 2023-11-13 | Outpatient (CLI) | payer MEDICARE, SELFPAY ==
[2023-11-13 16:20] LABS: Hematocrit 44.1 % (40-54); Hemoglobin 14.4 g/dL (13.0-16.5); Mean Corp Hgb Conc 32.7 g/dL (32-36); Mean Platelet Vol. 9.5 fl (6.2-12.0); Platelet Count 268 K/mm3 (150-450); RBC Distribution Width CV 13.4 % (11.6-14.6); RBC Distribution Width SD 47.3 fl (35.1-43.9); Red Blood Count 4.64 M/mm3 (4.6-6.2); White Blood Count 5.1 K/mm3 (4.4-11.0)
[2023-11-13 16:29] LABS: Partial Thromboplast Time 29.8 Seconds (24.1-36.2); Prothrombin Time (Protime)PT. 13.5 SECONDS (11.7-14.9)
[2023-11-13 16:50] LABS: Anion Gap 7 (5-15); BUN 20 mg/dL (7-18); BUN/Creat Ratio 23.7 RATIO (10-20); Calcium,Total 8.9 mg/dL (8.5-10.1); Chloride 109 mmol/L (98-107); Creatinine, Serum 0.84 mg/dL (0.70-1.30); EST Glomerular Filtration Rate 92 mL/min (>60); Est Glom Filt Rate - Afr Amer 111 mL/min (>60); Glucose 108 mg/dL (74-106); Potassium 3.8 mmol/L (3.5-5.1); Sodium Level 142 mmol/L (136-145)
== END | disposition home or self-care (01) ==
LOC: LAB 15:43
PROVIDERS: PCP Family Medicine; Referring Provider Internal Medicine Cardiovascular Disease; Visit Provider Internal Medicine Cardiovascular Disease
DX: I25.10 Atherosclerotic heart disease of native coronary artery without angina pectoris (principal); R06.09 Other forms of dyspnea; I25.5 Ischemic cardiomyopathy; I10 Essential (primary) hypertension; R06.02 Shortness of breath
CPT/HCPCS: 36415; 80048; 85027; 85610; 85730

== ENCOUNTER 2023-11-21 08:58 | Observation (INO) | payer MEDICARE, SELFPAY ==
[2023-11-20 09:28] VITALS: BMI 25.3
[2023-11-21] VITALS (9 sets, daily range): BP systolic 116–132; BP diastolic 69–80; PULSE 52–79; RESP 14–18; TEMP 36.4–36.7; O2SAT 95–98; BMI 25.3
--- NOTE | 2023-11-21 09:06 | DCINST_ITS ---
Discharge Instructions Diet Discharge Diet: Low fat / Low cholesterol Activity Discharge Activity: Return to Normal Activity May resume sexual activity in: No Restrictions Dressing / Incision Call your doctor if your incision/area has: Continuous Slow Oozing, Sudden Increased Bleeding, Increased Pain/ Swelling and Increased Redness Call your doctor if you observe: Fever of 101 or Higher, Coldness, Increased Pain, Numbness or Tingling and Change in Color Follow Up Care Please Follow Up With: Ron Peck MD When: 2-4 weeks Test Results: Test results from this visit will be discussed in further detail at your follow- up appointment, if applicable. Discharge Plan Admission Attending Provider: Ron Peck Primary Care Provider: Michael Moran Instructions Print Language: New Zealander Discharge Orders/Prescriptions Prescriptions: Continued montelukast 10 mg tablet 10 mg PO QHS Stiolto Respimat 2.5-2.5 mcg/actuation mist 2 inh inhalation DAILY Qty: 4 2RF dutasteride 0.5 mg capsule 0.5 mg PO .QOD Patient Comments: TAKE 1 CAPSULE BY MOUTH ONCE DAILY magnesium 250 mg tablet 250 mg PO DAILY cholecalciferol (vitamin D3) 125 mcg (5,000 unit) capsule 125 mcg PO DAILY apple cider vinegar 500 mg tablet 250 mg PO DAILY Arnuity Ellipta 100 mcg/actuation blister with device 1 inh inhalation DAILY Qty: 30 11RF amlodipine 5 mg tablet 5 mg PO DAILY Qty: 90 3RF furosemide 20 mg tablet 20 mg PO DAILY Qty: 90 3RF potassium chloride 10 mEq tablet extended release 10 meq PO DAILY Qty: 90 3RF losartan 50 mg tablet 50 mg PO DAILY Qty: 90 3RF flunisolide 1 SPRAY spray,non-aerosol 1 spray intranasal BID melatonin-pyridoxine (vit B6) 1 EACH tablet 1 ea PO QHS carvedilol 3.125 mg tablet 3.125 mg PO BID 30 Days Qty: 180 3RF aspirin 81 mg tablet,delayed release (DR/EC) 81 mg PO BREAKFAST Qty: 90 3RF atorvastatin 40 mg tablet 40 mg PO QHS 30 Days Qty: 90 3RF Jardiance 25 mg tablet 12.5 mg PO DAILY clopidogrel 75 mg tablet 75 mg PO DAILY Discontinued prednisone 20 mg tablet 60 mg PO BID Qty: 6 0RF Rx Instructions: Take 3 tablets (60 mg) by mouth at bedtime the day before your cath and take 3 tablets (60 mg) the morning of the cath Referrals / Follow Up: Michael Moran MD [Primary Care Provider] - Disposition Disposition (needs filled in before D/C Order can be placed): Home, Self Care
--- NOTE | 2023-11-21 09:15 | EKG12_ITS ---
Test Reason : POST PCI Blood Pressure : / mmHG Vent. Rate : 054 BPM Atrial Rate : 054 BPM P-R Int : 178 ms QRS Dur : 150 ms QT Int : 454 ms P-R-T Axes : 029 -53 -02 degrees QTc Int : 430 ms Sinus bradycardia Left axis deviation Right bundle branch block Septal infarct (cited on or before 14-MAR-2023) Abnormal ECG When compared with ECG of 14-MAR-2023 09:41, Questionable change in initial forces of Septal leads T wave inversion no longer evident in Anterolateral leads Confirmed by Enrico Meza ([id number]), pictures editor ANGEL MANZANO ([id number]) on 11/22/2023 11:29:45 AM Referred By: Ron Peck Confirmed By:Enrico Meza
--- NOTE | 2023-11-21 09:23 | CL.I_ITS ---
Patient Name: SANTA ARRIAGA Study Date: 11/21/2023 Performing: Ron Peck MD Ht: 67 inches 170.18 cm : 1935 Wt: 162 lbs 73.48 kg Age: 88 Gender: male BSA: 1.85 PROCEDURE(S) PERFORMED IC12-(20335/[id number])RIAZ W/WO PTCA, SINGLE CORONARY ARTERY [id number])LHC/COR CLINICAL PROFILE AND CO-MORBIDITIES Indications: Stable Known CAD Heart Failure: None Angina Classification Anginal Classification w/in 2 Weeks: Anginal Equivalent Dyspnea CAD Presentations: Stable angina. CONCLUSIONS 30% ostial LMCA 50% Prox LAD, stent to Mid LAD patent 50% ostial LCX 50% ostial RCA, 90% Prox/Mid RPLV Successful RIAZ RPLV using Inocente [place] 2.25x38 mm ,post-dilated using 2.5 mm balloon RECOMMENDATIONS ASA Indefinitley Plavix for at least 12 months DESCRIPTION OF PROCEDURE The patient arrived to the procedure lab. The risks and benefits of the procedure as well as a full description of our services here and lack of surgical backup were fully explained to the patient and/or their significant other prior to the catheterization. The Timeout was completed, verifying the correct patient and procedure. The patient's procedural site was prepped and draped in the usual fashion. Local anesthetic was given subcutaneously to left radial region with Lidocaine 2%. Using a modified Seldinger technique, arterial access was obtained via the left radial artery, a 6Fr sheath was inserted.. Right Coronary Artery selective angiography was then performed in multiple views using a 5 Fr. JR 4 catheter. Left Coronary Artery selective angiography was performed in multiple views using a 5 Fr. JL4 catheterThe images were reviewed and options discussed. A decision was then made to proceed with an Intervention, IVUS or other adjunct procedure. AL 0.75 Guide catheter was inserted and engaged into the RCA {L1} RUNTHROUGH NS EXTRA FLOPPY Guide wire was advanced to the RPL. INOCENTE FRONTIER 2.25 X 38 Drug Eluting stent was inserted. Drug Eluting stent was advanced across the lesion in the right coronary, mid. PL Angiogram performed post stent deployment. NC EMERGE 2.5 X 20 Balloon catheter was inserted. Angiogram performed pre balloon dilatation. Balloon catheter was inserted post stent. Angiogram performed post balloon dilatation. The arterial sheath was pulled and a TR Band was applied for hemostasis 11 ml of air CORONARY ANGIOGRAPHY DOMINANCE: Right Dominant LEFT MAIN: Tubular 30% Ostial lesion in LMCA LEFT ANTERIOR DESCENDING ARTERY: LAD: Tubular 50% Proximal lesion in LAD RIGHT CORONARY ARTERY: RCA: Tubular 50% Ostial lesion in RCA Calcified 40% Mid lesion in RCA Tubular 50% Distal lesion in RCA INTERVENTION INFORMATION LESION SITE: RPL Lesion Complexity: High/C, lesion length: 36 mm Pre Stenosis: 90 % Pre intervention KIRK flow: 3 PROCEDURE: Drug Eluting Stent with post dilatation Post Stenosis: 0 % Post intervention KIRK flow: 3 Lesion Devices: Terumo .014 180cm Runthrough Extra Floppy straight Cordis 6 Fr AL.75 100cm Guide Catheter [employer] 2.25 x 38 INOCENTE FRONTIER RIAZ Lucio Sci NC EMERGE MR 2.50x20 BALLOON COMPLICATIONS No Complications PROCEDURE MEDICATIONS Fentanyl 50 mcg IV Versed 1 mg IV Oxygen: 2 L/min via nasal cannula Heparin given IA 11/21/2023 08:15:32 Heparin 5000 unit(s) IV 11/21/2023 08:34:29 Heparin 1000 unit(s) IV 11/21/2023 09:01:24 Nitro 50 mcg IC 11/21/2023 08:50:10 Plavix 300 mg PO 11/21/2023 09:01:19 Verapamil 2.5mg, Ntg 200mcgs, 2000 units of Heparin given IA 11/21/2023 08:15:32 IV Fluids: .9 NaCl increased to 100 ml/hr 11/21/2023 08:50:54 SUMMARY OF HEMODYNAMIC DATA Time AIR REST ECG 07:28:53 AO 97/52 (72) SA 08:26:42 AO 104/53 (75) 08:31:18 AO 109/54 (76) 08:37:12 AO 92/44 (65) 08:45:13 AO 103/48 (71) 08:49:44 Signed By Ron Peck MD On 11/21/2023 09:22:41 Ron Peck MD
--- NOTE | 2023-11-21 10:52 | CRPHASE1_ITS ---
Patient Communication Patient Information Former Patient:: Phase I PHII Cardiac Rehab Discussed with Patient:: Yes Guide to Cardiac Rehab Given to Patient:: Yes Cardiac Rehab Facility Choice List Given to Patient:: Yes Communication to Cardiac Rehab Explosive Ordnance Specialist:: Ron Peck Sessions:: 36 sessions - 3 days/wk, 12 weeks Cardiac Rehabilitation Info Program Information Cardiac Rehabilitation Program Information: Cardiac Rehab The cardiac rehab team at [facility] consists of highly skilled exercise physiologists, nurses, respiratory therapists and physicians working together with you. Our purpose is to help you have a full recovery and achieve the goals you set for yourself. Over the years many of our patients have returned to activities they assumed they would never do again! We can help restore your confidence and motivation to make lifestyle changes that can have a significant impact on your health and quality of life! We can help answer questions and concerns you may have about exercise, lifestyle, medications, diet, stress and anxiety which are common following a hospitalization. WE monitor ECG and vital signs during exercise and discuss your progress with you and report to your physician(s). Cardiac Rehab is proven to help reduce readmissions, improve functional capacity and lower recurrence of problems with your heart. Our Cardiac Rehab program is Certified by the [place] [employer]-Vascular [employer] Pulmonary [employer] (AACVPR) and Accredited by the [place] [employer] through our [facility]. You can contact us at . We invite you to call us with your questions or to get started in our program. If you have other questions or concerns be sure to ask your physician/provider during your follow-up visit. WE look forward to seeing you!
--- NOTE | 2023-11-21 10:53 | CRPH1.INSTRU ---
General Education Discussed with Patient CAD and cardiac anatomy and function:: Patient communicates acknowledgment Explanation of diagnoses and procedures:: Patient communicates acknowledgment Sign/Symptoms of KS:: Patient communicates acknowledgment Antiplatelet therapy: Patient communicates acknowledgment Proper use of NTG-SL: Patient communicates acknowledgment Emergency procedures and activation of EMS: Patient communicates acknowledgment Compliance of all prescribed medications: Patient communicates acknowledgment Smoking Risk Factors Patient Nicotine/Smoking Risk Factors Are:: Cigarettes and Cigars Recommendations Recommendations Include:: Previous smoker; encourage continued cessation Response Code Nicotine/Smoking Response Code:: Patient communicates acknowledgment Dyslipidemia Risk Factors Patient Dyslipidemia Risk Factors Are:: Total Cholesterol, Triglycerides, HDL and LDL Recommendations Recommendations Include:: Lipid profile not available, Reviewed NCEP/ATP guidelines and Therapeutic Lifestyle Change dietary guidelines Response Code Dyslipidemia Response Code:: Patient communicates acknowledgment Hypertension Recommendations Recommendations Include:: Maintain BP <130/85, DASH dietary guidelines, Decrease/maintain normal body weight and Moderation of ETOH Response Code Hypertension:: Patient communicates acknowledgment Heart Disease Risk Factors Patient Heart Disease Risk Factors Are:: Family history of heart disease < 65 years old and Previous cardiac event Recommendations Recommendations Include:: Educated family members of their risk and Educated family members of importance of prevention of heart disease Response Code Heart Disease Response Code:: Patient communicates acknowledgment Diabetes Risk Factors Patient Diabetes Risk Factors Are:: No documented hx of diabetes Recommendations Recommendations Include:: Maintain fasting blood sugars 70-110 md/dL, Maintain HgbA1c of 6% or less, Monitor blood sugar as prescribed, Diabetic dietary guidelines and Decrease/maintain body weight Response Code Diabetes:: Patient communicates acknowledgment Metabolic Syndrome Risk Factors Patient Metabolic Syndrome Risk Factors Are [3 of 5]:: High triglyceride >150 and Hypertension Recommendations Recommendations Include:: Reinforce compliance to risk factor modifications and Encouraged follow-up with Primary Care Physician Response Code Metabolic Syndrome Response Code:: Patient communicates acknowledgment Sedentary Recommendations Recommendations Include:: Aerobic exercise 5-7 times/week for 20-30 minutes continuously, Benefits of regular exercise and Monitored Outpatient Cardiac Rehab Response Code Sedentary Response Code:: Patient communicates acknowledgment Stress Risk Factors Patient Stress Risk Factors Are:: Patient denies stress as a risk factor Recommendations Recommendations Include:: Identification of stressors, and assessment of coping skills and Stress management techniques Response Code Stress Response Code:: Patient communicates acknowledgment, Family communicates acknowledgment, Patient returns demonstration and Family returns demonstration
[2023-11-21] MEDS: 0.9% Normal Saline (1000mL) 1,000 ML 50 ML IV (11:17)
[2023-11-21] MEDS: Ipratropium/Albuterol Sulfate 3 ML AMPUL.NEB INHALATION ×2 (13:15→20:10)
[2023-11-21] MEDS: Empagliflozin 25 MG Tablet 12.5 MG PO (13:49)
[2023-11-21] MEDS: Clopidogrel Bisulfate 75 MG Tablet PO (13:50)
[2023-11-21] MEDS: Finasteride 5 MG Tablet PO (13:50)
[2023-11-21] MEDS: Carvedilol 3.125 MG TABLET PO (17:16)
[2023-11-21] MEDS: Atorvastatin Calcium 40 MG Tablet PO (19:56)
[2023-11-21] MEDS: MELATONIN 3 MG TABLET PO (19:56)
[2023-11-21] MEDS: Montelukast 10 MG Tablet PO (19:56)
[2023-11-21] MEDS: Budesonide Respules 0.5 MG/2 ML AMPUL.NEB. INHALATION (20:11)
[2023-11-22 03:30] VITALS: BP 111/64; PULSE 55; RESP 16; TEMP 36.3; O2SAT 96
[2023-11-22 05:52] LABS: Hematocrit 38.1 % (40-54); Hemoglobin 12.8 g/dL (13.0-16.5); Mean Corp Hgb Conc 33.6 g/dL (32-36); Mean Corpuscular Hgb 31.2 pg (27.0-32.0); Mean Corpuscular Volume 92.9 fL (80-94); Mean Platelet Vol. 9.9 fl (6.2-12.0); Platelet Count 242 K/mm3 (150-450); RBC Distribution Width CV 13.5 % (11.6-14.6); RBC Distribution Width SD 46.5 fl (35.1-43.9); White Blood Count 9.6 K/mm3 (4.4-11.0)
[2023-11-22 06:21] LABS: ALB/GLOB Ratio 1.3 RATIO (0.9-2.4); AST(SGOT) 16 U/L (15-37); Alanine Aminotransfer ALT/SGPT 19 U/L (16-61); Albumin, Serum 3.2 g/dL (3.2-5.0); Alkaline Phosphatase 77 U/L (45-117); Anion Gap 8 (5-15); BUN 20 mg/dL (7-18); BUN/Creat Ratio 33.2 RATIO (10-20); Calcium,Total 8.8 mg/dL (8.5-10.1); Chloride 111 mmol/L (98-107); EST Glomerular Filtration Rate 135 mL/min (>60); Est Glom Filt Rate - Afr Amer 163 mL/min (>60); Estimated Creatinine Clearance 61.97 ml/min; Globulin 2.4 g/dL (2.2-4.2); Glucose 90 mg/dL (74-106); Potassium 3.4 mmol/L (3.5-5.1); Protein, Total 5.6 g/dL (6.4-8.2); Sodium Level 143 mmol/L (136-145)
[2023-11-22 08:56] VITALS: BP 130/70; PULSE 56; RESP 16; TEMP 36.4; O2SAT 97
[2023-11-22] MEDS: Aspirin E.C. 81 MG Tablet PO (08:58)
[2023-11-22] MEDS: Carvedilol 3.125 MG TABLET PO (08:58)
[2023-11-22] MEDS: Potassium Chloride Oral Tablet 10 MEQ PO (08:59)
[2023-11-22] MEDS: Losartan Potassium 50 MG Tablet PO (08:59)
[2023-11-22] MEDS: amLODIPine 5 MG Tablet PO (09:00)
[2023-11-22] MEDS: Empagliflozin 25 MG Tablet 12.5 MG PO (09:00)
[2023-11-22] MEDS: Magnesium Chloride 64 MG Delay Rel.Tablet 128 MG PO (09:00)
[2023-11-22] MEDS: Furosemide 20 MG Tablet PO (09:00)
[2023-11-22] MEDS: Cholecalciferol (Vit D3) 125 MCG CAPSULE (5,000 UNITS) PO (09:01)
[2023-11-22] MEDS: Clopidogrel Bisulfate 75 MG Tablet PO (09:01)
[2023-11-22] MEDS: Finasteride 5 MG Tablet PO (09:01)
--- NOTE | 2023-11-22 09:49 | CASEMGMT ---
Met with patient to complete AMEZCUA form. AMEZCUA form explained to patient who voiced understanding and signed form. Original form placed in pt?s chart and copy provided to patient. Kaykay Kat, Discharge Planning Asst
--- NOTE | 2023-11-22 10:19 | CASEMGMT ---
Patient has order for discharge. RN CM in to discuss needs at discharge. Patient denies needs or help at discharge. Patient had no further questions or concenrs.
--- NOTE | 2023-11-22 11:41 | NURSING ---
Pt, son, and pt advocate present in room. pt son is discussing symptoms that pt has reported to pcp, pulmonary and cardiology doctors. pt and son feel like they are not getting answers as to what is causing these symptoms. they report feeling like they are being bounced between doctors without any clear answers. this nurse informed dr lara that pt and son would like to speak to him in regards to the symptoms and how to proceed if the stent does not help. dr lara reports that he is not in the building to day and pt concerns can be discussed at outpt follow-up visit. dr hines notified that pt and son would like to speak to a child care giver today. dr hines reports he will come speak to pt at [address] lara is not in the building. pt and son agreeable to waiting for dr hines.
== END 2023-11-22 09:30 | disposition home or self-care (01) ==
LOC: CLSP 09:08 → PCU 10:32
PROVIDERS: Admitting Provider Internal Medicine Cardiovascular Disease; PCP Family Medicine; Referring Provider Internal Medicine Cardiovascular Disease; Visit Provider Internal Medicine Cardiovascular Disease
DX: I25.119 Atherosclerotic heart disease of native coronary artery with unspecified angina pectoris (principal); J44.9 Chronic obstructive pulmonary disease, unspecified; Z95.5 Presence of coronary angioplasty implant and graft; R06.09 Other forms of dyspnea; I10 Essential (primary) hypertension; E78.2 Mixed hyperlipidemia; I25.5 Ischemic cardiomyopathy; R60.0 Localized edema; Z87.891 Personal history of nicotine dependence; Z79.899 Other long term (current) drug therapy; Z79.82 Long term (current) use of aspirin; Z79.51 Long term (current) use of inhaled steroids
CPT/HCPCS: 36415; 80053; 85027; 92928; 93005; 93454; 94640; 96360; 96361; 99152; 99153; 99252; C1874; J7030; J7040; Q9967; C1725; C1769; C1887; C1894; C9600; G0463

== ENCOUNTER → 2023-12-19 | Outpatient (CLI) | payer MEDICARE, SELFPAY ==
--- NOTE | 2023-12-19 15:08 | CT_ITS ---
STUDY: LOW DOSE CT LUNG CANCER SCREENING REASON FOR EXAM: Male, 88 years old. SMOKE EXPOSURE RADIATION DOSAGE (If Supplied By Facility): CTDIvol = ( 3.02 ) mGy, DLP = ( 106.46 ) mGycm TECHNIQUE: No contrast was administered. Low dose technique was utilized (average mAS-38 and kVp 120). 1.25 mm axial source images with a slice interval of 1.25-mm were reconstructed in lung windows. 2.5 mm axial source images with a slice interval of 2.5-mm were reconstructed in lung windows. 5.0 mm axial source images with a slice interval of 5.0-mm were reconstructed in soft tissue windows. COMPARISON: None. NODULES: There is a 4.1 mm calcified granuloma in the peripheral lateral anterior aspect of the left lower lobe as seen on axial image #107. Emphysema: Mild degree of hyperinflation and emphysematous changes. Linear scarring in the posterior aspect of the lingular segment of the left upper lobe with evidence of a mild bronchiectasis. Mild linear scarring at the right lung base. Endobronchial lesion: None Aorta: Atherosclerotic plaque formation of the aorta. CORONARY ARTERIES: Coronary artery calcification is seen. Heart: Unremarkable Pulmonary artery: Unremarkable Mediastinal nodes: Small mediastinal lymph nodes. Other chest and abdominal findings: CT/Low Dose CT Lung Screening IMPRESSION: Lung-RADS category 2 - Continue annual screening with LDCT in 12 months. IMPORTANT NOTES FOR USE: ACR Lung-RADS Version 1.1 Assessment Categories Release Date: 2018 Category: Coded 0-4 bases on nodule(s) with highest degree of suspicion. Negative screen is defined as categories 1 and 2; a positive screen is defined as categories 3 and 4. Category 3 and 4A nodules that are unchanged on interval CT should be coded as category 2, and individuals returned to screening in 12 months. Category 4X: Category 3 or 4 nodules with additional imaging findings that increase the suspicion of lung cancer, such as spiculation, GGN that doubles in size in 1 year, enlarged lymph notes, etc. Category Modifiers: S (significant finding unrelated to lung cancer) Electronically Signed: Carlos Christensen MD at 14:30 EDT ,
== END | disposition home or self-care (01) ==
LOC: CT 15:00
PROVIDERS: PCP Family Medicine; Referring Provider Family Medicine; Visit Provider Family Medicine
DX: Z87.891 Personal history of nicotine dependence (principal); Z77.22 Contact with and (suspected) exposure to environmental tobacco smoke (acute) (chronic); Z77.9 Other contact with and (suspected) exposures hazardous to health
CPT/HCPCS: 71271

== ENCOUNTER 2024-01-24 18:48 | Emergency (ER) | payer MEDICARE, SELFPAY ==
[2024-01-24 18:49] VITALS: BP 135/88; PULSE 90; RESP 18; TEMP 36.2; O2SAT 100; BMI 25.9
[2024-01-24 21:00] VITALS: BP 152/90; PULSE 56; RESP 20; O2SAT 96
--- NOTE | 2024-01-24 21:03 | EKG12_ITS ---
Test Reason : DYSRHYTHMIA Blood Pressure : / mmHG Vent. Rate : 054 BPM Atrial Rate : 054 BPM P-R Int : 178 ms QRS Dur : 156 ms QT Int : 466 ms P-R-T Axes : 066 -47 005 degrees QTc Int : 441 ms Sinus bradycardia Left axis deviation Right bundle branch block Abnormal ECG Confirmed by GILBERT ORTIZ ([id number]), video tape editor ANGEL MANZANO ([id number]) on 01/28/2024 10:18:12 AM Referred By: Confirmed By:GILBERT ORTIZ
[2024-01-24 21:34] LABS: Absolute Lymphocyte Count 0.66 X10^3/uL (0.83-4.51); Absolute Neutrophil Count 2.5 X10^3/uL (2.0-7.7); Basophil# 0.01 X10^3/uL; Basophil% 0.3 % (0-1); Eosinophil# 0.02 X10^3/uL; Eosinophils% 0.5 % (0-5); Hemoglobin 13.2 g/dL (13.0-16.5); Lymphocyte # 0.66 X10^3/ul (0.83-4.51); Lymphocyte % 18.1 % (19-41); Mean Corpuscular Hgb 30.5 pg (27.0-32.0); Mean Corpuscular Volume 92.4 fL (80-94); Mean Platelet Vol. 9.2 fl (6.2-12.0); Monocyte# 0.48 X10^3/uL; Monocyte% 13.2 % (0-10); NRBC Flagged by Analyzer 0 % (0-5); Neutrophil # 2.48 X10^3/uL (2.7-7.7); Neutrophil % 67.9 % (47-70); Platelet Count 281 K/mm3 (150-450); RBC Distribution Width CV 12.9 % (11.6-14.6); RBC Distribution Width SD 43.8 fl (35.1-43.9); Red Blood Count 4.33 M/mm3 (4.6-6.2); White Blood Count 3.7 K/mm3 (4.4-11.0)
[2024-01-24 21:47] LABS: Anion Gap 5 (5-15); BUN 24 mg/dL (7-18); Calcium,Total 9.1 mg/dL (8.5-10.1); Chloride 107 mmol/L (98-107); Creatinine, Serum 0.86 mg/dL (0.70-1.30); EST Glomerular Filtration Rate 90 mL/min (>60); Est Glom Filt Rate - Afr Amer 109 mL/min (>60); Estimated Creatinine Clearance 57.65 ml/min; Glucose 109 mg/dL (74-106); Sodium Level 138 mmol/L (136-145)
[2024-01-24 21:53] LABS: D-Dimer Quantitative (DVT/PE) 1.86 FEU/ug/m (0.27-0.49)
--- NOTE | 2024-01-24 22:31 | CT_ITS ---
EXAM: CT ANGIOGRAPHY CHEST WITHOUT AND WITH INTRAVENOUS CONTRAST CLINICAL INDICATION: sob, elevated dimer -- 1hr protocol TECHNIQUE: Helically acquired angiography images were obtained of the chest without and with intravenous contrast. This CT exam was performed using one or more of the following dose reduction techniques: automated exposure control, adjustment of the mA and/or kV according to patient size, and/or use of iterative reconstruction technique. MIP reconstructed images were created and reviewed. CONTRAST: IV 100mL Isovue-370 RADIATION DOSE: CTDIvol = 14.02 mGy, DLP = 414.37 mGy-cm COMPARISON: Low dose CT lung screening December 19, 2023 FINDINGS: PULMONARY ARTERIES: Mildly prominent pulmonary vessels. No evidence of pulmonary embolism. AORTA: Unremarkable. Normal in caliber. No evidence of dissection. GREAT VESSELS OF AORTIC ARCH: Mild atherosclerotic calcification of aorta, especially distal to the arch, descending thoracic and upper abdominal aorta, the aorta is mildly opacified, no evidence of PE. LUNGS AND PLEURAL SPACES: Hyperlucency and hyperinflation with thin-walled cystic spaces in the lungs, no fluid infiltrate. HEART: There are moderate-marked coronary artery calcifications or stents, especially in left anterior descending coronary artery, lesser extent in left main and proximal circumflex coronary arteries. SPECT and stents in distal right coronary artery branches. Mild distention of the left heart chambers, no filling defects. Upper limits of normal heart size. Mild pulmonary pulmonary vessels without yana CHF. MEDIASTINUM: Unremarkable. No mediastinal or hilar adenopathy. Esophagus is unremarkable. No hiatal hernia. THYROID: Unremarkable. No thyroid lesions. BONES/JOINTS: Unremarkable. No suspicious lytic or blastic abnormality. UPPER ABDOMEN: There is mildly prominent renal pelvis bilaterally, right roughly 1.9 cm AP, left 1.9 cm AP. The kidneys are not fully included. Mild diverticulosis of the splenic flexure and proximal descending colon, no evidence of acute diverticulitis of the small included portion of the colon. Slight hiatal hernia. Mild atherosclerotic calcification of aorta and mild calcifications at the origins of the celiac axis, SMA artery origins. CT/CTA Chest W/WO Contrast IMPRESSION: No evidence of PE or aortic aneurysm or dissection. No significant infiltrates or effusions. Coronary artery calcifications or stents. Mild pulmonary vascular prominence without yana CHF. Advanced COPD. This is an independent risk factor for lung neoplasm. Recommendations: 12 month follow-up low dose CT screening was recommended on recent prior exam. New recommendation for follow-up low dose CT in December 2024. Electronically Signed: Samantha Thrasher MD at 0:36 EDT ,
[2024-01-24] MEDS: DiphenhydrAMINE 50 MG/ML Syringe IV (22:41)
[2024-01-24 23:00] VITALS: BP 133/90; PULSE 71; RESP 20
--- NOTE | 2024-01-25 00:07 | EX.ED.DYSGE1 ---
HPI History of Present Illness Chief Complaint: Anxiety Informant: patient Narrative Narrative: Presents with concerns of panic attacks. He states not slept in 3 days. He reports when he falls asleep he wakes up gasping for air. He was told of anxiety symptoms by his health and safety coordinator in the past. He states he had initial cardiac stent February of last year, had a new stent October of this year 2 months ago. Denies chest pain or tightness. He also reports possible sleep apnea. He has not had a sleep test. Remote tobacco years ago. He is diagnosed with COPD and asthma. Denies cough. Denies fevers. He saw his cardiology team today. He is concerned of all his cardiac medications causing dyspnea. He states they are adjusting his blood pressure medicines. Denies vomiting or diarrhea. Denies recent travel. Denies history of PE or DVT. Prior similar symptoms: Yes [facility] Medical History Cellulitis Coronary artery disease Risk of myocardial infarction or stroke 7.5% or greater in next 10 years Hoarseness of voice Ischemic cardiomyopathy Shortness of breath Atherosclerosis of coronary artery of [place] heart without angina pectoris Hypoxia Asthma-COPD overlap syndrome Umbilical hernia without obstruction or gangrene Inguinal hernia of left side without obstruction or gangrene History of facial trauma Hydrocele, bilateral GERD (gastroesophageal reflux disease) Asthma Neuropathy Seasonal allergies BPH (benign prostatic hyperplasia) Chronic constipation HTN (hypertension) Hyperlipidemia COPD (chronic obstructive pulmonary disease) Inguinal hernia of right side without obstruction or gangrene Home Medications ?Medication ?Instructions ?Recorded ?Last Taken ?Type flunisolide 25 mcg (0.025 %) nasal 1 spray intranasal BID nasal spray 09/13/15 Unknown History spray montelukast 10 mg tablet 10 mg PO QHS allergy 07/19/21 Unknown History tiotropium 2.5 mcg-olodaterol 2.5 2 inh inhalation DAILY breathing 05/24/22 11/21/23 Rx mcg/actuation mist for inhalation #4 grams (Stiolto Respimat) aspirin 81 mg tablet,delayed 81 mg PO BREAKFAST heart health 06/06/23 11/21/23 Rx release #90 tabs atorvastatin 40 mg tablet 40 mg PO QHS cholesterol 30 days 06/06/23 Unknown Rx #90 tabs carvedilol 3.125 mg tablet 3.125 mg PO BID blood pressure 30 06/06/23 11/21/23 Rx days #180 tabs empagliflozin 25 mg tablet 12.5 mg PO DAILY diabetes 08/19/23 Unknown History (Jardiance) fluticasone furoate 100 1 inh inhalation DAILY asthma/ 09/23/23 Unknown Rx mcg/actuation blister powder for wheezing/ SOB #30 ea inhalation (Arnuity Ellipta) clopidogrel 75 mg tablet 75 mg PO DAILY blood thinner 09/30/23 Unknown History apple cider vinegar 500 mg tablet 250 mg PO DAILY supplement 10/25/23 Unknown History cholecalciferol (vitamin D3) 125 125 mcg PO DAILY supplement 10/25/23 Unknown History mcg (5,000 unit) capsule magnesium 250 mg tablet 250 mg PO DAILY supplement 10/25/23 Unknown History amlodipine 5 mg tablet 5 mg PO DAILY blood pressure #90 11/13/23 11/21/23 Rx tabs furosemide 20 mg tablet 20 mg PO DAILY water pill #90 tabs 11/13/23 11/21/23 Rx losartan 50 mg tablet 50 mg PO DAILY blood pressure #90 11/13/23 11/21/23 Rx tabs potassium chloride 10 mEq 10 meq PO DAILY supplement #90 tabs 11/13/23 Unknown Rx tablet,extended release acetaminophen 500 mg tablet 500 mg PO QAM 12/17/23 Unknown History dutasteride 0.5 mg capsule 0.5 mg PO Q OTHER DAY prostate 12/17/23 Unknown History melatonin 10 mg tablet 24 mg PO HS 12/17/23 Unknown History amoxicillin 875 mg-potassium 1 tab PO BID 01/24/24 Unknown History clavulanate 125 mg tablet hydroxyzine HCl 25 mg tablet 25 mg PO QHS anxiety or sleep #20 01/25/24 Unknown Rx tabs Allergy/AdvReac Type Severity Reaction Status Date / Time Iodinated Contrast Media Allergy Anaphylaxis Verified 01/24/24 18:49 (CONTRASTS) chlorpromazine HCl (From AdvReac Rash Verified 01/24/24 18:49 Thorazine) fosinopril sodium (From AdvReac Hives Verified 01/24/24 18:49 Monopril) lisinopril AdvReac Hives Verified 01/24/24 18:49 suture AdvReac Swelling Verified 01/24/24 18:49 Family History Mother Heart disease Hypertension Father Cancer prostate Surgical History Hx of cardiac catheterization (~11/21/23) History of coronary artery stent placement (11/21/23) History of facial surgery History of left knee replacement History of prostate biopsy History of back surgery History of appendectomy History of cataract extraction History of foot surgery History of colonoscopy History of surgery on arm Social History Smoking Status: Former smoker pack-years: 20 Tobacco: How many years used: 20 Electronic Cigarette Use: not used how long ago did patient quit smoking: about 47 years ago second hand exposure: No alcohol intake: former substance use type: does not use ROS ROS ED Constitutional Constitutional ED: Denies chills, fever(s) or sweats Eyes Eyes: Denies change in vision ENT ENT ED: Denies dysphagia or sore throat Cardiovascular Cardiovascular: Denies chest pain, leg edema, palpitations or racing heartbeat Respiratory/Chest Respiratory/Chest: Reports dyspnea; Denies cough or dyspnea on exertion Gastrointestinal Gastrointestinal: Denies abdominal pain, diarrhea, nausea or vomiting Genitourinary Genitourinary ED: Denies dysuria, hematuria or urinary frequency Musculoskeletal Musculoskeletal: Denies back pain, extremity pain or neck pain Integumentary Denies rash or wounds Neurologic Neurologic: Denies headache(s), paresthesias or weakness Psychiatric Psychiatric: Reports anxiety EXAM Physical Exam Const Vital Signs: 01/24/24 18:49 01/24/24 21:00 01/24/24 23:00 Temperature 97.2 F L Temperature Source Temporal Pulse Rate 90 56 L 71 Respiratory Rate 18 20 H 20 H Blood Pressure 135/88 H 152/90 H 133/90 H Blood Pressure Mean 103 110 104 Pulse Ox 100 96 Oxygen Delivery Method Room Air Room Air 01/25/24 01:29 Temperature 98.2 F Temperature Source Pulse Rate 64 Respiratory Rate 17 Blood Pressure 149/97 H Blood Pressure Mean 114 Pulse Ox 97 Oxygen Delivery Method Positive well nourished and well developed General Appearance ED: well developed and NAD HEENT Reports moist mucous membranes normocephalic and atraumatic Eyes EOMs intact bilaterally and conjunctivae normal General Eye ED: Yes normal appearance of both eyes Neck no lymphadenopathy and supple General: Negative for tenderness Chest Wall Chest: Negative for tenderness Resp normal respiratory effort and normal air movement Effort and Inspection: symmetric chest movement; Negative for respiratory distress Cardio regular rate, regular rhythm and no murmurs Peripheral Pulses: pulses 2+ throughout GI normal to inspection, nondistended, normoactive bowel sounds and non-tender Palpation: Negative for guarding or rebound tenderness present Back/Spine no CVA tenderness and no thoracic nor lumbar tenderness Extremity normal to inspection General Extremety ED: Negative for edema or tenderness General Extremity: Negative for edema Neuro oriented x3 and no sensory deficits noted Sensorium / Orientation: awake and alert Skin no rashes or lesions noted and no wounds MDM MDM MDM Narrative Medical decision making narrative: Interventions / MDM: Differential diagnosis: Diagnosis considered but do not suspect: N/A My EKG interpretation: Sinus rate of 54, no ST changes. Right bundle branch block. Similar to EKG October 2023 Imaging independently reviewed and interpreted by myself: N/A External documents reviewed: N/A Test considered but not ordered:N/A ED course: Patient vital signs stable, nontoxic. After evaluation of the patient, he reports gasping for air when he awakens. He is 2 months out from cardiac stent different recent surgery. EKG obtained chronic right bundle branch block. Basic labs and D-dimer ordered for low risk Wells criteria for PE with his symptoms and recent surgery. Patient BNP normal D-dimer was elevated. He has anaphylaxis allergy to IV dye. He has been treated with CTs with dye with pretreatment in the past. He was given Medrol prednisone and diphenhydramine IV 1 hour prep prior to CT scan. 0000: CT scan performed, no reactions to IV dye. Re-evaluation: stable Disposition discussed with patient/family/significant other: Case discussed with consulting clinician: N/A This note was generated with Skipo dictation software. It may contain incorrect words, spelling, and punctuation that were not noted in checking the note before signing. Lab Data Labs: Laboratory Results - last 24 hr 01/24/24 21:21 WBC 3.7 L RBC 4.33 L Hgb 13.2 Hct 40.0 MCV 92.4 MCH 30.5 MCHC 33.0 RDW Std Deviation 43.8 RDW Coeff of Horace 12.9 Plt Count 281 MPV 9.2 Immature Gran % (Auto) 0.000 Neut % (Auto) 67.9 Lymph % (Auto) 18.1 L [place] % (Auto) 13.2 H Eos % (Auto) 0.5 Baso % (Auto) 0.3 Absolute Neuts (auto) 2.5 Absolute Lymphs (auto) 0.66 L Nucleated RBC % 0 D-Dimer Quant (PE/DVT) 1.86 H* Sodium 138 Potassium 4.0 Chloride 107 Carbon Dioxide 26.0 Anion Gap 5 BUN 24 H Creatinine 0.86 Estim Creat Clear Calc 57.65 Est GFR (MDRD) Af Amer 109 Est GFR (MDRD) Non-Af 90 BUN/Creatinine Ratio 28.0 H Glucose 109 H Calcium 9.1 B-Natriuretic Peptide 25.0 Radiography Diagnostic Testing: Clinical Impression(s) from Imaging Studies Chest CTA 01/24/24 22:31 IMPRESSION: No evidence of PE or aortic aneurysm or dissection. No significant infiltrates or effusions. Coronary artery calcifications or stents. Mild pulmonary vascular prominence without yana CHF. Advanced COPD. This is an independent risk factor for lung neoplasm. Recommendations: 12 month follow-up low dose CT screening was recommended on recent prior exam. New recommendation for follow-up low dose CT in December 2024. Electronically Signed: Samantha Thrasher MD at 0:36 EDT , Discharge Plan Triage Chief Complaint: Anxiety ED Provider: Burak Flowers Dx/Rx/DC Orders Clinical Impression: Dyspnea, History of coronary artery stent placement, Insomnia Instructions: ED Dyspnea, ED Insomnia Prescriptions: New hydroxyzine HCl 25 mg tablet 25 mg PO QHS Qty: 20 0RF No Action montelukast 10 mg tablet 10 mg PO QHS Stiolto Respimat 2.5-2.5 mcg/actuation mist 2 inh inhalation DAILY Qty: 4 2RF dutasteride 0.5 mg capsule 0.5 mg PO Q OTHER DAY magnesium 250 mg tablet 250 mg PO DAILY cholecalciferol (vitamin D3) 125 mcg (5,000 unit) capsule 125 mcg PO DAILY apple cider vinegar 500 mg tablet 250 mg PO DAILY Arnuity Ellipta 100 mcg/actuation blister with device 1 inh inhalation DAILY Qty: 30 11RF amlodipine 5 mg tablet 5 mg PO DAILY Qty: 90 3RF furosemide 20 mg tablet 20 mg PO DAILY Qty: 90 3RF potassium chloride 10 mEq tablet extended release 10 meq PO DAILY Qty: 90 3RF losartan 50 mg tablet 50 mg PO DAILY Qty: 90 3RF acetaminophen 500 mg tablet 500 mg PO QAM melatonin 10 mg tablet 24 mg PO HS amoxicillin-pot clavulanate 875-125 mg tablet 1 tab PO BID flunisolide 1 SPRAY spray,non-aerosol 1 spray intranasal BID carvedilol 3.125 mg tablet 3.125 mg PO BID 30 Days Qty: 180 3RF aspirin 81 mg tablet,delayed release (DR/EC) 81 mg PO BREAKFAST Qty: 90 3RF atorvastatin 40 mg tablet 40 mg PO QHS 30 Days Qty: 90 3RF Jardiance 25 mg tablet 12.5 mg PO DAILY clopidogrel 75 mg tablet 75 mg PO DAILY Primary Care Provider: Michael Moran Referrals: Michael Moran MD [Primary Care Provider] - 1 Week Activity Restrictions/Additional Instructions: Your CT chest negative for any pulmonary embolism. Follow-up with your doctor possible sleep test as an outpatient. Take medication prescribed to try to help with sleep. EKG stable unchanged from previous. Print Language: Omani Disposition Disposition: Home, Self Care Discharge Date/Time: 01/25/24 01:29
[2024-01-25 01:29] VITALS: BP 149/97; PULSE 64; RESP 17; TEMP 36.8; O2SAT 97
== END 2024-01-25 01:29 | disposition home or self-care (01) ==
PROVIDERS: Emergency Provider Emergency Medicine; PCP Family Medicine; Visit Provider Emergency Medicine
DX: R06.00 Dyspnea, unspecified (principal); J44.9 Chronic obstructive pulmonary disease, unspecified; F41.9 Anxiety disorder, unspecified; I10 Essential (primary) hypertension; Z95.5 Presence of coronary angioplasty implant and graft; I25.10 Atherosclerotic heart disease of native coronary artery without angina pectoris; E78.5 Hyperlipidemia, unspecified; G47.00 Insomnia, unspecified; Z87.891 Personal history of nicotine dependence; I45.10 Unspecified right bundle-branch block; K21.9 Gastro-esophageal reflux disease without esophagitis; Z79.899 Other long term (current) drug therapy
CPT/HCPCS: 71275; 80048; 83880; 85025; 85379; 93005; 96374; 96375; 99284; Q9967; A4216

== ENCOUNTER 2024-01-25 07:19 | Emergency (ER) | payer MEDICARE, SELFPAY ==
[2024-01-25 07:19] VITALS: BP 135/81; PULSE 86; RESP 18; TEMP 36.4; O2SAT 96; BMI 24.5
--- NOTE | 2024-01-25 08:06 | ED.VIS.DYS ---
HPI History of Present Illness Chief Complaint: Shortness of Breath Informant: patient Onset/Context/Timing Onset: Month(s) Context: gradual Timing: Waxes and wanes Quality: Positive for Orthopnea Worsened by: Lying flat Relieved by: Nothing Associated Symptoms rhinorrhea; Negative for cough, post nasal drip, ear pain, fever, sore throat, chills, sweats, clear sputum, white sputum, yellow sputum or green sputum Narrative Narrative: Patient presents with shortness of breath that has been constant for the past several months. Patient states it became worse this morning. Patient states that he looked up his symptoms on the Internet and diagnosed himself with sleep apnea. Patient states he has never had a sleep study done however. Patient denies any cough. Patient denies any fevers or chills. Patient does admit to some rhinorrhea. Patient states his breathing is worse when he lays flat. Patient denies any chest pain. [facility] Medical History Cellulitis Coronary artery disease Risk of myocardial infarction or stroke 7.5% or greater in next 10 years Hoarseness of voice Ischemic cardiomyopathy Shortness of breath Atherosclerosis of coronary artery of [place] heart without angina pectoris Hypoxia Asthma-COPD overlap syndrome Umbilical hernia without obstruction or gangrene Inguinal hernia of left side without obstruction or gangrene History of facial trauma Hydrocele, bilateral GERD (gastroesophageal reflux disease) Asthma Neuropathy Seasonal allergies BPH (benign prostatic hyperplasia) Chronic constipation HTN (hypertension) Hyperlipidemia COPD (chronic obstructive pulmonary disease) Inguinal hernia of right side without obstruction or gangrene Home Medications ?Medication ?Instructions ?Recorded ?Last Taken ?Type flunisolide 25 mcg (0.025 %) nasal 1 spray intranasal BID nasal spray 09/13/15 Unknown History spray montelukast 10 mg tablet 10 mg PO QHS allergy 07/19/21 Unknown History tiotropium 2.5 mcg-olodaterol 2.5 2 inh inhalation DAILY breathing 05/24/22 11/21/23 Rx mcg/actuation mist for inhalation #4 grams (Stiolto Respimat) aspirin 81 mg tablet,delayed 81 mg PO BREAKFAST heart health 06/06/23 11/21/23 Rx release #90 tabs atorvastatin 40 mg tablet 40 mg PO QHS cholesterol 30 days 06/06/23 Unknown Rx #90 tabs carvedilol 3.125 mg tablet 3.125 mg PO BID blood pressure 30 06/06/23 11/21/23 Rx days #180 tabs empagliflozin 25 mg tablet 12.5 mg PO DAILY diabetes 08/19/23 Unknown History (Jardiance) fluticasone furoate 100 1 inh inhalation DAILY asthma/ 09/23/23 Unknown Rx mcg/actuation blister powder for wheezing/ SOB #30 ea inhalation (Arnuity Ellipta) clopidogrel 75 mg tablet 75 mg PO DAILY blood thinner 09/30/23 Unknown History apple cider vinegar 500 mg tablet 250 mg PO DAILY supplement 10/25/23 Unknown History cholecalciferol (vitamin D3) 125 125 mcg PO DAILY supplement 10/25/23 Unknown History mcg (5,000 unit) capsule magnesium 250 mg tablet 250 mg PO DAILY supplement 10/25/23 Unknown History amlodipine 5 mg tablet 5 mg PO DAILY blood pressure #90 11/13/23 11/21/23 Rx tabs furosemide 20 mg tablet 20 mg PO DAILY water pill #90 tabs 11/13/23 11/21/23 Rx losartan 50 mg tablet 50 mg PO DAILY blood pressure #90 11/13/23 11/21/23 Rx tabs potassium chloride 10 mEq 10 meq PO DAILY supplement #90 tabs 11/13/23 Unknown Rx tablet,extended release acetaminophen 500 mg tablet 500 mg PO QAM 12/17/23 Unknown History dutasteride 0.5 mg capsule 0.5 mg PO Q OTHER DAY prostate 12/17/23 Unknown History melatonin 10 mg tablet 24 mg PO HS 12/17/23 Unknown History amoxicillin 875 mg-potassium 1 tab PO BID 01/24/24 Unknown History clavulanate 125 mg tablet hydroxyzine HCl 25 mg tablet 25 mg PO QHS anxiety or sleep #20 01/25/24 Unknown Rx tabs nirmatrelvir 300 mg (150 mg See Rx Instructions PO .COMPLEX 01/25/24 Unknown Rx x2)-ritonavir 100 mg tablet,dose #30 tabs pack (Paxlovid) Allergy/AdvReac Type Severity Reaction Status Date / Time Iodinated Contrast Media Allergy Anaphylaxis Verified 01/25/24 07:19 (CONTRASTS) chlorpromazine HCl (From AdvReac Rash Verified 01/25/24 07:19 Thorazine) fosinopril sodium (From AdvReac Hives Verified 01/25/24 07:19 Monopril) lisinopril AdvReac Hives Verified 01/25/24 07:19 suture AdvReac Swelling Verified 01/25/24 07:19 Family History Mother Heart disease Hypertension Father Cancer prostate Surgical History Hx of cardiac catheterization (~11/21/23) History of coronary artery stent placement (11/21/23) History of facial surgery History of left knee replacement History of prostate biopsy History of back surgery History of appendectomy History of cataract extraction History of foot surgery History of colonoscopy History of surgery on arm Social History Smoking Status: Former smoker pack-years: 20 Tobacco: How many years used: 20 Electronic Cigarette Use: not used how long ago did patient quit smoking: about 47 years ago second hand exposure: No alcohol intake: former substance use type: does not use ROS ROS ED Constitutional Constitutional ED: Denies chills or fever(s) Eyes Eyes: Denies blurry vision or change in vision ENT ENT ED: Denies rhinorrhea or sore throat Cardiovascular Cardiovascular: Denies chest pain or palpitations Respiratory/Chest Respiratory/Chest: Reports dyspnea; Denies cough Gastrointestinal Gastrointestinal: Denies nausea or vomiting Genitourinary Genitourinary ED: Denies dysuria or hematuria Musculoskeletal Musculoskeletal: Reports back pain; Denies neck pain Integumentary Denies abscess or rash Neurologic Neurologic: Denies headache(s) or weakness Allergic/Immunologic Allergic/Immunologic ED: Denies mouth swelling or urticaria EXAM Physical Exam Const Vital Signs: 01/25/24 07:19 01/25/24 07:40 01/25/24 08:43 Temperature 97.6 F L Temperature Source Temporal Pulse Rate 86 Respiratory Rate 18 16 Respiratory Effort Short of Breath Blood Pressure 135/81 H Blood Pressure Mean 99 Pulse Ox 96 Oxygen Delivery Method Room Air Room Air 01/25/24 09:19 Temperature Temperature Source Pulse Rate 71 Respiratory Rate 18 Respiratory Effort Blood Pressure 131/79 H Blood Pressure Mean 96 Pulse Ox 97 Oxygen Delivery Method Room Air Positive well nourished and well developed General Appearance ED: well developed and NAD HEENT Reports moist mucous membranes Neck supple and no JVD Resp normal respiratory effort Auscultation: diminished lung sounds diffuse Cardio regular rate and regular rhythm GI non-tender and non-distended Palpation: soft Extremity Extremity Narrative: There is mild edema and tenderness of the left lower leg. (Patient states he is currently being treated for cellulitis of this leg.) General Extremety ED: Yes edema and tenderness General Extremity: edema Neuro oriented x3, CN's II-XII intact bilaterally and no sensory deficits noted Fletcher Coma Scale: document GCS findings Spontaneous Obeys Commands Oriented 15 Sensorium / Orientation: alert Speech: speech normal Motor Exam: strength 5/5 throughout Psych mental status grossly normal MDM MDM MDM Narrative Medical decision making narrative: Differential diagnosis includes pneumonia, bronchitis, COVID, influenza, viral illness, pulmonary embolism, cardiac dysrhythmia, and cardiac ischemia. EKG will be obtained to assess for cardiac dysrhythmia and cardiac ischemia. CBC will be obtained to assess for leukocytosis and anemia. Patient metabolic profile will be obtained to assess for electrolyte abnormality and renal function. High-sensitivity troponin will be obtained to assess for cardiac ischemia. COVID-19, influenza, and RSV PCR will be obtained to assess for viral illness. Lab Data Attestation: I reviewed the patient's lab results. Lab results narrative: CBC was reviewed and was essentially within normal limits. Basic metabolic profile was reviewed and was within normal limits. High-sensitivity troponin was reviewed and was normal at 9. COVID-19 PCR was reviewed and was positive. Influenza PCR was reviewed and was negative for influenza A and influenza B. RSV PCR was reviewed and was negative. Labs: Laboratory Results - last 24 hr 01/25/24 08:40 WBC 3.7 L RBC 4.45 L Hgb 13.5 Hct 41.3 MCV 92.8 MCH 30.3 MCHC 32.7 RDW Std Deviation 44.3 H RDW Coeff of Horace 12.9 Plt Count 291 MPV 9.4 Immature Gran % (Auto) 0.300 Neut % (Auto) 86.2 H Lymph % (Auto) 10.8 L [place] % (Auto) 2.7 Eos % (Auto) 0.0 Baso % (Auto) 0.0 Absolute Neuts (auto) 3.2 Absolute Lymphs (auto) 0.40 L Nucleated RBC % 0 Sodium 139 Potassium 4.0 Chloride 107 Carbon Dioxide 25.0 Anion Gap 7 BUN 22 H Creatinine 0.87 Estim Creat Clear Calc 56.98 Est GFR (MDRD) Af Amer 107 Est GFR (MDRD) Non-Af 88 BUN/Creatinine Ratio 25.3 H Glucose 130 H Calcium 9.2 Troponin I High Sens 9 EKG Initial EKG: Interpretation: Sinus Rhythm (78) and RBBB Comments: EKG was obtained. On my independent interpretation, it showed a normal sinus rhythm with a rate of 78. OH interval was normal at 194 ms. QRS interval was prolonged at 156 ms. QTc interval was 481 ms. There is left axis deviation of -56. There is a right bundle branch block pattern noted. Prior EKG tracings: available for review Prior: Unchanged (11/21/2023) Additional Tests and Interventions Diagnositc testing considered but not performed: Patient had CTA of his chest performed yesterday. There is no evidence of pneumonia or pulmonary embolism or aortic dissection. There was COPD noted. This was interpreted by the radiologist. Treatment and Re-Evaluation :: Patient was given a DuoNeb aerosol here. Patient was feeling better on reevaluation. Patient was advised of his findings. Patient was given a prescription for Paxlovid. Patient was instructed to follow-up with his primary care physician in 5 to 7 days. Patient understood and was agreeable with the plan. All questions were answered. Discharge Plan Triage Chief Complaint: Shortness of Breath ED Provider: Michel Freeman Dx/Rx/DC Orders Clinical Impression: COVID-19, COPD (chronic obstructive pulmonary disease), HTN (hypertension) Instructions: Coronavirus Disease 2019 (COVID-19): Overview Prescriptions: New Paxlovid 300 mg (150 mg x 2)-100 mg tablets,dose pack See Rx Instructions .ROUTE .COMPLEX Qty: 30 0RF Rx Instructions: take TWO 150 mg tablets of nirmatrelvir with ONE 100 mg tablet of ritonavir twice daily for 5 days No Action montelukast 10 mg tablet 10 mg PO QHS Stiolto Respimat 2.5-2.5 mcg/actuation mist 2 inh inhalation DAILY Qty: 4 2RF dutasteride 0.5 mg capsule 0.5 mg PO Q OTHER DAY magnesium 250 mg tablet 250 mg PO DAILY cholecalciferol (vitamin D3) 125 mcg (5,000 unit) capsule 125 mcg PO DAILY apple cider vinegar 500 mg tablet 250 mg PO DAILY Arnuity Ellipta 100 mcg/actuation blister with device 1 inh inhalation DAILY Qty: 30 11RF amlodipine 5 mg tablet 5 mg PO DAILY Qty: 90 3RF furosemide 20 mg tablet 20 mg PO DAILY Qty: 90 3RF potassium chloride 10 mEq tablet extended release 10 meq PO DAILY Qty: 90 3RF losartan 50 mg tablet 50 mg PO DAILY Qty: 90 3RF acetaminophen 500 mg tablet 500 mg PO QAM melatonin 10 mg tablet 24 mg PO HS amoxicillin-pot clavulanate 875-125 mg tablet 1 tab PO BID hydroxyzine HCl 25 mg tablet 25 mg PO QHS Qty: 20 0RF flunisolide 1 SPRAY spray,non-aerosol 1 spray intranasal BID carvedilol 3.125 mg tablet 3.125 mg PO BID 30 Days Qty: 180 3RF aspirin 81 mg tablet,delayed release (DR/EC) 81 mg PO BREAKFAST Qty: 90 3RF atorvastatin 40 mg tablet 40 mg PO QHS 30 Days Qty: 90 3RF Jardiance 25 mg tablet 12.5 mg PO DAILY clopidogrel 75 mg tablet 75 mg PO DAILY Primary Care Provider: Michael Moran Referrals: Michael Moran MD [Primary Care Provider] - 5-7 Days Print Language: Surinamese Disposition Disposition: Home, Self Care
--- NOTE | 2024-01-25 08:22 | EKG12_ITS ---
Test Reason : SOB Blood Pressure : / mmHG Vent. Rate : 078 BPM Atrial Rate : 078 BPM P-R Int : 194 ms QRS Dur : 156 ms QT Int : 422 ms P-R-T Axes : 068 -56 017 degrees QTc Int : 481 ms Normal sinus rhythm Left axis deviation Right bundle branch block Septal infarct , age undetermined Abnormal ECG Confirmed by JOHN WRIGHT, SHAZIA ([id number]), business editor ANGEL MANZANO ([id number]) on 01/28/2024 10:23:46 AM Referred By: ALYX Confirmed By:SHAZIA LOPEZ MD
[2024-01-25 08:43] VITALS: RESP 16
--- NOTE | 2024-01-25 08:43 | CPS ---
Pt states he went to his pulmonary doctor and they told him breathing treatments do not work so he didnt want one. RT told DR Macdonald.
[2024-01-25 08:55] LABS: Absolute Neutrophil Count 3.2 X10^3/uL (2.0-7.7); Hematocrit 41.3 % (40-54); Hemoglobin 13.5 g/dL (13.0-16.5); Lymphocyte % 10.8 % (19-41); Mean Corp Hgb Conc 32.7 g/dL (32-36); Mean Corpuscular Hgb 30.3 pg (27.0-32.0); Mean Corpuscular Volume 92.8 fL (80-94); Mean Platelet Vol. 9.4 fl (6.2-12.0); Monocyte% 2.7 % (0-10); NRBC Flagged by Analyzer 0 % (0-5); Neutrophil # 3.19 X10^3/uL (2.7-7.7); Neutrophil % 86.2 % (47-70); POSITIVE DIFFERENTIAL YES; Platelet Count 291 K/mm3 (150-450); RBC Distribution Width CV 12.9 % (11.6-14.6); RBC Distribution Width SD 44.3 fl (35.1-43.9); Red Blood Count 4.45 M/mm3 (4.6-6.2); White Blood Count 3.7 K/mm3 (4.4-11.0)
[2024-01-25 09:19] VITALS: BP 131/79; PULSE 71; RESP 18; O2SAT 97
[2024-01-25 09:26] LABS: Anion Gap 7 (5-15); BUN 22 mg/dL (7-18); BUN/Creat Ratio 25.3 RATIO (10-20); Calcium,Total 9.2 mg/dL (8.5-10.1); Chloride 107 mmol/L (98-107); Creatinine, Serum 0.87 mg/dL (0.70-1.30); EST Glomerular Filtration Rate 88 mL/min (>60); Est Glom Filt Rate - Afr Amer 107 mL/min (>60); Estimated Creatinine Clearance 56.98 ml/min; Glucose 130 mg/dL (74-106); Sodium Level 139 mmol/L (136-145); Troponin-I HS 9 pg/mL (3.0-78.0)
[2024-01-25 10:56] VITALS: BP 138/7; PULSE 81; RESP 16; TEMP 36.6; O2SAT 95
== END 2024-01-25 10:57 | disposition home or self-care (01) ==
PROVIDERS: Emergency Provider Emergency Medicine; PCP Family Medicine; Visit Provider Emergency Medicine
DX: U07.1 COVID-19 (principal); J44.9 Chronic obstructive pulmonary disease, unspecified; I10 Essential (primary) hypertension; Z87.891 Personal history of nicotine dependence; E78.5 Hyperlipidemia, unspecified; I25.10 Atherosclerotic heart disease of native coronary artery without angina pectoris; K21.9 Gastro-esophageal reflux disease without esophagitis
CPT/HCPCS: 80048; 84484; 85025; 87631; 93005; 99283; A4216

== ENCOUNTER → 2024-08-07 | Outpatient (CLI) | payer MEDICARE, SELFPAY ==
--- NOTE | 2024-08-07 12:51 | ECHOD_ITS ---
Reason For Study Reason For Study: CAD/ASHD Procedure This was a 2D Doppler, Color Flow transthoracic echocardiogram. Exam performed in department. Left Ventricle Normal LV size. Mild concentric left ventricular hypertrophy. Normal LV systolic function. LVEF 60%. Stage I diastolic dysfunction. Right Ventricle Normal right ventricle. Atria The left and right atria are normal. Mitral Valve Trivial mitral valve insufficiency. Tricuspid Valve Mild tricuspid valve insufficiency. Normal pulmonary artery pressure. Aortic Valve Aortic sclerosis, no stenosis. Pulmonic Valve The pulmonic valve is not well visualized. Great Vessels The aortic root is not well visualized. Moderate atherosclerosis of the ascending aorta. Pericardium/Pleural No pericardial effusion. MMode/2D Measurements & Calculations LVIDd: 4.8 cm IVSd: 1.2 cm LVOT diam: 2.1 cm LVIDs: 3.5 cm LVPWd: 1.1 cm LVOT area: 3.5 cm2 RVDd: 4.4 cm FS: 26.7 % Ao root diam: 0.00 cm LAV(MOD-bp): 43.5 ml LVAd ap4: 29.6 cm2 LAV(MOD-bp) Indexed: 23.3 ml/m2 LVLd ap4: 7.8 cm LAV(MOD-sp2): 46.3 ml EDV(MOD-sp4): 92.1 ml LAV(MOD-sp4): 39.1 ml EDV(sp4-el): 96.0 ml LVAs ap4: 19.4 cm2 LVLs ap4: 7.4 cm ESV(MOD-sp4): 42.9 ml ESV(sp4-el): 43.3 ml EF(MOD-sp4): 53.5 % EF(sp4-el): 54.9 % SV(MOD-sp4): 49.3 ml SV(sp4-el): 52.7 ml LA A4 area: 15.5 cm2 SI(MOD-sp4): 26.4 ml/m2 LA dimension(2D): 3.4 cm RA A4 area: 14.0 cm2 Time Measurements MV dec time: 0.32 sec Doppler Measurements & Calculations MV E max baljeet: 39.8 cm/sec Lat Peak E' Baljeet: 6.8 cm/sec Med Peak E' Baljeet: 5.7 cm/sec MV A max baljeet: 59.2 cm/sec E/E' lat: 5.9 E/E' med: 7.0 MV E/A: 0.67 MV V2 max: 69.2 cm/sec Ao V2 max: 121.3 cm/sec MV max P.9 mmHg MV dec slope: 127.8 cm/sec2 Ao max P.9 mmHg MV V2 mean: 39.9 cm/sec Ao V2 mean: 85.1 cm/sec MV mean P.72 mmHg Ao mean P.3 mmHg MV V2 VTI: 23.0 cm Ao V2 VTI: 27.5 cm AV (velocity ratio): 0.78 MVA(VTI): 3.3 cm2 DAO(I,D): 2.7 cm2 DAO(V,D): 2.8 cm2 LV V1 max: 96.4 cm/sec SV(LVOT): 75.1 ml PA V2 max: 90.8 cm/sec LV V1 max P.7 mmHg PA V2 mean: 60.4 cm/sec LV V1 mean P.0 mmHg LV V1 mean: 65.6 cm/sec LV V1 VTI: 21.5 cm ECHO/Echo Complete Interpretation Summary Mild concentric left ventricular hypertrophy. Normal LV systolic function. LVEF 60%. Stage I diastolic dysfunction. Mild tricuspid valve insufficiency. Aortic sclerosis, no stenosis. Moderate atherosclerosis of the ascending aorta. Ordering Physician: Ron Peck Referring Physician: Ron Peck Performed By: Tiffany Jimenez RCS
== END | disposition home or self-care (01) ==
LOC: CVS 12:48
PROVIDERS: PCP Family Medicine; Referring Provider Internal Medicine Cardiovascular Disease; Visit Provider Internal Medicine Cardiovascular Disease
DX: R06.09 Other forms of dyspnea (principal); I25.10 Atherosclerotic heart disease of native coronary artery without angina pectoris; Z95.5 Presence of coronary angioplasty implant and graft
CPT/HCPCS: 93306

== ENCOUNTER → 2025-02-20 | Outpatient (CLI) | payer MEDICARE, SELFPAY ==
--- OUTSIDE RECORDS SUMMARY | 2025-01-14 09:13 | XMS RPT_ITS ---
Author Name Auto Generated Organization [facility] Care Team Providers Care Is Technician Name Role Phone MELANIE FERNANDEZ Admitting Unavailable VACCSAM, MELANIE Primary Care Unavailable REBECCA, MELANIE Consulting Unavailable VACCARIELLO, MELANIE Attending Unavailable PROVIDER, UNKNOWN Consulting Unavailable PROVIDER, UNKNOWN Consulting Unavailable PROVIDER, UNKNOWN Consulting Unavailable PROBLEMS No Problem Records Found PROCEDURES No Procedure Records Found RESULTS CV VENOUS LEG RT Observed: 01/14/2025 9:37 AM Status: F Source: [place] [id number] Patient: SANTA ARRIAGA Phone#: : [phone] Age: 89 Gender: M Pt. Type: Out Account: [id number] Location: Ordering: MELANIE FERNANDEZ Exam Date: 01/14/2025/9:22 Family Phys: Charge Code: [id number] Physician: Power Order #: [id number] Dose#: PROCEDURE: VENOUS DOPPLER RT LEG COMPARISON: None. INDICATIONS: Knee mass TECHNIQUE: Color duplex Doppler ultrasound evaluation analysis was performed in the usual manner. ICE CREAM FREEZER HELPER: NAN CHAND [facility] RISK FACTORS FOR VENOUS DISEASE: Other Knee mass EXAMINATION: RIGHT +Present -Reduced o Absent LEFT SPONT PHASIC AUG REFLUX COMP SPONT PHASIC AUG REFLUX COM + + + o + CFV + + + o + + SFJ + + + o + FV (prox) + FV (mid) + FV (dist) + + + o + POP V + + + o + T/P TRUNK + + + o + PTV + + + o + PERONEAL V + GSV GASTROC SOLEAL V ICE CREAM FREEZER HELPER'S NOTES: Nonvascular structure noted in the right Pop Fossa. FINDINGS: THROMBI: None visible. Continued Report - Page 2 of 2 Patient: SANTA ARRIAGA Phone#: : 1935 Age: 89 Gender: M Pt. Type: Out Account: [id number] Location: Ordering: MELANIE FERNANDEZ Exam Date: 01/14/2025/9:22 Family Phys: Charge Code: [id number] Physician: Power Order #: [id number] Dose#: COMPRESSIBILITY: Normal. OTHER: The popliteal fossa there is an anechoic nonvascular structure containing internal debris. CONCLUSION: 1. No evidence of deep vein thrombus in the right lower extremity 2. 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 Dictated by: Marika Cole MD on 01/14/2025 at 13:05 Approved by: Marika Cole MD on 01/14/2025 at 13:07 SED RATE BY NASRA GAMINO Collected: 01/13/2025 4:27 PM Status: F Source: [facility] TYPE CODE TESTS RESULT OUT OF RANGE REFERENCE UNITS LAB [id number] SED RATE BY NASRA GAMINO 6 Normal < OR = 20 mm/h Performed By: #### 809, 4420 , 6646 #### [facility] [address], [address] [place] [id number] Shop Worker: Zbigniew Curtis MD LYME DISEASE AB W/REFL TO BL OT (IGG, IGM) Collected: 01/13/2025 4:27 PM Status: F Source: [facility] TYPE CODE TESTS RESULT OUT OF RANGE REFERENCE UNITS LAB [id number] LYME AB SCREEN <0.90 Normal index Result Comment: Index Inter pretation ----- < 0.90 Negative 0.90-1.09 Equivocal > 1.09 Positive As recommended by the Food and Drug Administration (FDA), all samples with positive or equivocal results in a Borrelia burgdorferi antibody screen will be tested using a blot method. Positive or equivocal screening test results should not be interpreted as truly positive until verified as such using a supplemental assay (e.g., B. burgdorferi blot). The screening test and/or blot for B. burgdorferi antibodies may be falsely negative in early stages of Lyme disease, including the period when erythema migrans is apparent. Performed By: #### 809, 4420 , 6646 #### [facility] [address], [address] [place], [place] [id number] Shop Worker: Zbigniew Curtis MD C-REACTIVE PROTEIN Collected: 5 4:27 PM Status: F Source: [facility] TYPE CODE TESTS RESULT OUT OF RANGE REFERENCE UNITS LAB [id number] C-REACTIVE PROTEIN 46.0 High <8.0 mg/L Performed By: #### 809, 4420 , 6646 #### [facility] [address], [address] [place], [place] [id number] Shop Worker: Zbigniew Curtis MD ALLERGIES DATE TYPE / CODE NAME / CODE REACTION SEVERITY SOURCE Drug Allergy/4732394 02(SNOMED CT) CHLORPROMAZINE/86908 520(RXNORM) Moderate (Severity Modifier) (Qualifier Value) [facility] Drug Allergy/8808800 02(SNOMED CT) IODINE/47676670(RXNO RM) Moderate (Severity Modifier) (Qualifier Value) [facility] Drug Allergy/0987344 02(SNOMED CT) THORAZINE PO TAB 200 MG/30467622(RXNORM) Moderate (Severity Modifier) (Qualifier Value) [facility] ENCOUNTERS ADMIT/DISCHARGE ACCOUNT NUMBER ADMITTING ENCOUNTER CLASS LOCATION SOURCE 01/14/2025/ 5 [id number] MELANIE FERNANDEZ Ambulatory Building:[facility] PAYERS ENCOUNTER GUARANTOR PAYER SUBSCRIBER SOURCE 01/14/2025 SANTA BOJORQUEZOB: [id number] [address], [place] [address]Lbr: () Primary Insurance:PRIMETIME MEDICARE OUTPATIENTPolicy Number: [id number] Date:Plan Name:P1 SANTA BOJORQUEZOB: [id number] [address], [place] [phone] [facility]
--- NOTE | 2025-02-20 08:33 | CT_ITS ---
PROCEDURE: CHEST WITHOUT CONTRAST 02/20/2025 REASON FOR EXAM: NODULE TECHNIQUE: Chest CT without contrast. Coronal and Sagittal reconstruction series were provided. One or more dose reduction techniques were used (e.g., Automated exposure control, adjustment of the mA and/or kV according to patient size, use of iterative reconstruction technique RADIATION DOSE SUMMARY: CTDlvol: 10.73 mGy DLP: 430.24 mGycm COMPARISON: CTA chest, 01/24/2024. FINDINGS: Lower neck:The thyroid gland is normal. There is no supraclavicular lymphadenopathy. Mediastinum:No abnormal masses or lymphadenopathy. Heart and thoracic aorta:The heart size is normal. There is no pericardial effusion. There is moderate calcific vascular disease of the coronary arteries in the thoracic aorta. Esophagus:There is a small hiatal hernia. Upper Abdomen:There is calcific vascular disease of the visualized abdominal aorta. There are multiple peripelvic cysts in both kidneys. Chest wall:The soft tissues of the chest wall appear unremarkable. There is no axillary lymphadenopathy. 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 There is mild levoscoliosis of the thoracolumbar spine. Lungs, airways and pleura: There is moderate upper lobe predominant centrilobular emphysema. There are multiple air cysts throughout both lungs. There is bronchiectasis with peribronchial scarring in the middle lobe of the right lung and in the lingula. There is a pleural-parenchymal scar in the anterior medial basal segment of the lower lobe of the left lung. There is a calcified granuloma in the lower lobe of the left lung. There are no pleural effusions. CT/Chest without Contrast IMPRESSION: 1. There are no noncalcified pulmonary nodules. 2. Emphysema. 3. Calcific vascular disease. 4. Other findings as noted, not significantly changed. Recommendation: Follow up low-dose chest CT in 12 months. Reading Location: [place] [address]
== END | disposition home or self-care (01) ==
LOC: CT 08:20
PROVIDERS: PCP Family Medicine; Referring Provider Internal Medicine Pulmonary Disease; Visit Provider Internal Medicine Pulmonary Disease
DX: R91.1 Solitary pulmonary nodule (principal); J44.9 Chronic obstructive pulmonary disease, unspecified
CPT/HCPCS: 71250

== ENCOUNTER → 2025-05-10 | Outpatient (CLI) | payer MEDICARE, SELFPAY ==
[2025-05-10 17:46] LABS: Hematocrit 43.8 % (40-54); Hemoglobin 14.6 g/dL (13.0-16.5); Immature Granulocytes Count 0.010 X10^3/uL (0.0-0.0); Mean Corp Hgb Conc 33.3 g/dL (32-36); Mean Corpuscular Volume 93.6 fL (80-94); Mean Platelet Vol. 9.7 fl (6.2-12.0); NRBC Flagged by Analyzer 0 % (0-5); Platelet Count 266 K/mm3 (150-450); RBC Distribution Width CV 13.2 % (11.6-14.6); RBC Distribution Width SD 45.9 fl (35.1-43.9); Red Blood Count 4.68 M/mm3 (4.6-6.2); White Blood Count 5.7 K/mm3 (4.4-11.0)
== END | disposition home or self-care (01) ==
LOC: LAB 16:38
PROVIDERS: PCP Family Medicine; Referring Provider Internal Medicine Pulmonary Disease; Visit Provider Internal Medicine Pulmonary Disease
DX: J44.9 Chronic obstructive pulmonary disease, unspecified (principal)
CPT/HCPCS: 36415; 85025